=== PATIENT | female | born 1960 | race Caucasian/White ===

== ENCOUNTER 2020-01-18 12:40 | Outpatient (CLI) | payer OTHER, SELFPAY ==
--- NOTE | ~2020-01-18 | US_ITS ---
EXAMINATION: US venous doppler [facility] DATE: 01/18/2020 13:37 INDICATION: Lower limb swelling. TECHNIQUE: Grayscale ultrasound images without and with compression and Doppler ultrasound images of the bilateral lower extremity veins were obtained. COMPARISON: None. FINDINGS: The visualized portions of right common femoral vein, profunda (deep) femoral vein, femoral vein, pop liteal vein, peroneal veins, posterior tibial veins, and greater saphenous vein outflow are patent. The visualized portions of left common femoral vein, profunda femoral vein, femoral vein, popliteal v ein, peroneal veins, posterior tibial veins, and greater saphenous vein outflow are patent. IMPRESSION: 1. No deep venous thrombosis. Reviewed, dictated and finalized at location A.
== END 2020-01-18 12:41 | disposition home or self-care (01) ==
PROVIDERS: PCP Family Medicine; Visit Provider Internal Medicine Critical Care Medicine
DX: M79.89 Other specified soft tissue disorders (principal)
CPT/HCPCS: 93970

== ENCOUNTER 2020-10-19 10:00 | Outpatient (CLI) | payer OTHER, SELFPAY | END 2020-10-19 10:01 | disposition home or self-care (01) | LOC: ANHCOVIDVC 10:00 | PROVIDERS: PCP Family Medicine | DX: Z23 Encounter for immunization (principal) | CPT/HCPCS: 0001A; 91300 ==

== ENCOUNTER 2020-11-09 10:01 | Outpatient (CLI) | payer OTHER, SELFPAY | END 2020-11-09 10:02 | disposition home or self-care (01) | LOC: ANHCOVIDVC 10:01 | PROVIDERS: PCP Family Medicine | DX: Z23 Encounter for immunization (principal) | CPT/HCPCS: 0002A; 91300 ==

== ENCOUNTER 2021-02-13 09:11 | Outpatient (CLI) | payer OTHER, SELFPAY ==
--- NOTE | ~2021-02-13 | MM_ITS ---
EXAMINATION: MM screening [facility] BI w terry HISTORY: Screening mammogram TECHNIQUE: Craniocaudal and mediolateral oblique 3-D tomosynthesis images were obtained and synthetic 2-D images were generated. CAD analysis was submitted and interpreted. COMPARISON: 01/26/2019, 08/12/2017, 06/07/2016 BREAST PARENCHYMAL COMPOSITION: There are scattered areas of fibroglandular density. FINDINGS: There is no evidence of suspicious mass, calcification, or architectural distortion to sugg est malignancy in either breast. There has been no suspicious interval change. IMPRESSION: 1. No mammographic evidence of malignancy. 2. Recommend routine screening mammography in one year. BI-RADS Category 1: Negative Reviewed, dictated and finalized at location A.
== END 2021-02-13 09:12 | disposition home or self-care (01) ==
LOC: ANHIMG 09:16
PROVIDERS: PCP Family Medicine; Visit Provider Family Medicine
DX: Z12.31 Encounter for screening mammogram for malignant neoplasm of breast (principal)
CPT/HCPCS: 77063; 77067

== ENCOUNTER 2021-09-25 09:13 | Inpatient (IN) | payer OTHER, SELFPAY ==
[2021-09-25] VITALS (14 sets, daily range): BP systolic 114–141; BP diastolic 60–88; PULSE 79–93; RESP 12–25; TEMP 36.6–37.7; O2SAT 90–98; BMI 39.5
--- NOTE | ~2021-09-25 | XR_ITS ---
EXAMINATION: XR chest 1V portable DATE: 09/25/2021 09:59 INDICATION: Altered mental status TECHNIQUE: frontal view of the chest was obtained. COMPARISON: Chest CT dated 09/29/2018 FINDINGS: Small airspace opacities at the lateral left midlung zone and at the left costophrenic angle. No pulm onary edema, pleural effusion or pneumothorax. The cardiomediastinal silhouette is normal. IMPRESSION: 1. Mild airspace opacities at the left costophrenic angle and lateral right midlung zone which could represent atelectasis and/or pneumonia. Reviewed, dictated and finalized at location A. R UP IMPRESSION: 1. Mild airspace opacities at the left costophrenic angle and lateral right mid lung zone which could represent atelectasis and/or pneumonia.
--- NOTE | ~2021-09-25 | CT_ITS ---
EXAMINATION: CT brain wo con DATE: 10/09/2021 07:57 INDICATION: Meningitis. TECHNIQUE: Computed tomography (CT) of the head was performed without intravenous contrast. The mA wa s adjusted according to patient size. Iterative reconstruction technique was employed. The dose-lengt h product was 605.33 mGy-cm. COMPARISON: Head CT 09/25/2021 FINDINGS: There is no intracranial hemorrhage, acute infarction, or abnormal intracranial mass lesion . There is an empty sella. The ventricles are normal in size. The orbits are normal. There is mild mu cosal thickening in the paranasal sinuses. There is a left mastoid effusion. IMPRESSION: 1. No acute intracranial pathology. Reviewed, dictated and finalized at location A. TRIC BATH ATTENDANT
--- NOTE | ~2021-09-25 | CT_ITS ---
EXAMINATION: CT BRAIN W/O DATE: 09/25/2021 10:04 INDICATION: Altered mental status TECHNIQUE: Computed tomography (CT) of the head was performed without intravenous contrast. The dose- length product was 605.33 mGy-cm. Automated exposure control and iterative reconstruction technique w ere employed. COMPARISON: No prior studies for comparison. FINDINGS: Normal brain parenchymal volume for age. Normal savage-white differentiation. No acute intrac ranial hemorrhage, infarction, mass or mass effect. No ventriculomegaly or midline shift. Midline sagittal images demonstrate a normal corpus callosum, c raniovertebral junction and sella turcica. Basilar cisterns are patent. There is an empty sella turci ca. Paranasal sinuses and mastoids are pneumatized. No depressed skull fractures. IMPRESSION: 1. No acute intracranial abnormality. Reviewed, dictated and finalized at location B. ING HELPER
--- NOTE | ~2021-09-25 | US_ITS ---
EXAMINATION: US venous doppler [facility] DATE: 10/06/2021 11:14 INDICATION: Lower limb pain. TECHNIQUE: Grayscale ultrasound images without and with compression and Doppler ultrasound images of the bilateral lower extremity veins were obtained. COMPARISON: Ultrasound 01/18/2020 FINDINGS: The visualized portions of right common femoral vein, profunda (deep) femoral vein, femoral vein, pop liteal vein, peroneal veins, posterior tibial veins, and greater saphenous vein outflow are patent. The visualized portions of left common femoral vein, profunda femoral vein, femoral vein, popliteal v ein, peroneal veins, posterior tibial veins, and greater saphenous vein outflow are patent. There is thrombus in left soleus vein. IMPRESSION: 1. Deep vein thrombosis involving left soleus vein. I called this result to Dr. Mckee. Reviewed, dictated and finalized at location A. S CLEANING MACHINE TENDER IMPRESSION: 1. Deep vein thrombosis involving left soleus vein. I called this result to Dr Addie Mckee.
--- NOTE | ~2021-09-25 | XR_ITS ---
EXAMINATION: XR lumbar puncture diagnostic EXAM DATE: 09/25/2021 11:46 INDICATION: Altered mental status. Clinical suspicion of meningitis. COVID positive. TECHNIQUE: Informed consent was obtained patient's for doing this procedure. The technologist and then I discussed benefits and risks including bleeding, infection with him. No real alternatives for this procedure to confirming suspected diagnosis. Radiologist Kenneth Mcfarlane M.D. performed the pro cedure with date of pulsed dose reduction fluoroscopy, with fluoroscopic time of 0.1 minutes. The DA P for this procedure was 14.5 Gycm2. A total of 5 images obtained for the exam. A timeout procedure was performed. Patient was moving periodically during the examination and report technologist were present to assist. The back was prepped in standard sterile fashion with Betadine. L4-5 entry site was chosen under fluoroscopic guidance and infiltrated with 1% lidocaine. The theca l sac was then accessed from a right approach using a 5 22G needle. Opening pressure determined to be 30 mmHg, elevated. A total of 9.5 mL of cloudy cerebral spinal flu id were then drained and placed in 4 consecutive vials which were labeled and sent to lab for analysi s. There were no immediate complications. IMPRESSION: 1. Status post fluoroscopic guided lumbar puncture. 2. Elevated opening pressure and cloudy CSF, suspicious for meningitis. Follow-up results. Reviewed, dictated and finalized at location A. ONER IMPRESSION: 1. Status post fluoroscopic guided lumbar puncture. 2. Elevated opening pressure and cloudy CSF, suspicious for meningitis. Follow- up results.
--- NOTE | 2021-09-25 09:16 | ECG_ITS ---
Measurements Intervals [place] Rate: 87 P: 46 SD: 146 QRS: 22 QRSD: 107 T: 54 QT: 381 QTc: 460 Interpretive Statements SINUS RHYTHM DELAYED PRECORDIAL R/S TRANSITION BORDERLINE ST-T WAVE ABNORMALITY- DIFFUSE LEADS BASELINE ARTIFACT- V4-V6 BORDERLINE ECG Electronically Signed On 09-25-2021 13:02:50 WINDER TENDER by Pete Chávez D.O.
[2021-09-25 09:23] LABS: Glucose Point of Care 165 mg/dl (65-105)
--- NOTE | 2021-09-25 09:24 | ED.GENADULT ---
HPI - General Adult General Chief complaint: Weakness Stated complaint: Lethargic, weakness. Source: RN notes reviewed History of Present Illness HPI narrative: Patient presents emergency department from home via EMS for altered mental status. History is per the patient's as the patient is nonverbal. Per the yesterday patient had been in her normal state of health he gone for a walk and after returning from walker seen watching TV when she can complain about her left ear hurting since that time she places a heating pad on her left ear and lay down go to bed he states that while there laying down she states she has been feeling nauseous and vomited x1. States that she was complained about a headache at that time states that he did and then woke at 2:00 to use the restroom and the patient been laying out on the couch sleeping on the left seat he states that when he awoke this morning he found the patient on the left states still sleeping and moving all of her arms and legs but was unresponsive and nonverbal that time he called EMS and brought her to the emergency department for further evaluation patient currently is awake in bed with her eyes open follows minimal commands but is nonverbal Related Data Home Medications Medication Instructions Recorded Confirmed calcium carbonate 500 mg calcium 500 mg PO DAILY 10/15/19 05/22/21 (1,250 mg) tablet cholecalciferol (vitamin D3) 25 1,000 unit PO DAILY 10/15/19 05/22/21 mcg (1,000 unit) capsule acetaminophen 325 mg tablet 975 mg PO BID tablet 05/22/21 05/22/21 diphenhydramine 25 1 tablet PO QHS 05/22/21 05/22/21 mg-acetaminophen 500 mg tablet Allergies Allergy/AdvReac Type Severity Reaction Status Date / Time bupropion AdvReac Intermediate Itching Verified 09/25/21 10:13 Review of Systems Review of Systems: ROS unobtainable: Yes unobtainable due to medical condition PMFSH Past Medical History Medical History Baldness Bilateral knee pain Chondromalacia, patella Diverticulosis of colon (without mention of hemorrhage) Female genital prolapse Hearing loss Hyperlipidemia, unspecified Hypothyroid Knee injury Left 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 swelling 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 Malignant neoplasm of colon without distant metastasis Metabolic syndrome Morbid obesity Murmur, cardiac Nicotine dependence, unspecified, uncomplicated Obesity due to excess calories Obstructive sleep apnea (adult) (pediatric) Patellar tendinitis of both knees Sensorineural hearing loss, unspecified Unspecified vitamin D deficiency Surgical History Surgical History History of right hip replacement Family History Family History Father Hypertension Family history of aortic aneurysm Mother Hypertension Cerebrovascular accident Sibling Family history of lung cancer Other Family history of pancreatic cancer Social History Social History Smoking status: Former smoker Smoking end date: 08/05/13 Alcohol intake: current Alcohol use details: Occasional 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 CARDIOVASCULAR: Regular rate and rhythm without murmurs rubs or gallops. ABDOMINAL: Soft, nontender, nondistended, no rebound or guarding MUSCULOSKELETAl: Moves all extremities. No clubbing, cyanosis or edema. NEURO: Laying in bed with eyes open will follow minimal commands such as putting her arm down vascular to do that but does not answer commands does not fo
[2021-09-25 09:46] LABS: Alveolar/Arterial O2 Gradient 47.6 mmHg; Base Excess ABG -1.4 mEq/l (+/-2.0); Device ROOM AIR; Fractional Inspired Oxygen 21 %; Modified Allen's Test Pass; Oxygen Content ABG 18.5 %vol (16.0-22.0); Oxygen Saturation ABG 94.7 % (95.0-100.0); Oxyhemoglobin 93.3 % THb (90.0-100.0); PCO2 ABG 29.3 mmHg (35.0-45.0); PO2 FiO2 Ratio Arterial Blood 3.19 %; Site Drawn LEFT RADIAL; Total Hemoglobin 14.1 g/dL (12.0-18.0); pH ABG 7.473 (7.350-7.450)
[2021-09-25 09:50] LABS: Hematocrit 43.6 % (37.0-47.0); Hemoglobin 13.9 g/dL (12.0-15.0); Immature Platelet Fraction Pct 14.5 % (0.9-11.2); Mean Corpuscular HGB Conc 31.9 g/dl (32-36); Mean Corpuscular Hemoglobin 31.7 pg (26-34); Mean Corpuscular Volume 99.3 fl (80-100); Mean Platelet Volume 11.1 fl (7.4-10.4); Platelet Count Result 149 k/mm3 (150-375); Red Blood Count 4.39 M/mm3 (4.2-5.4); Red Cell Distribution Width 13.2 % (11.5-14.5); White Blood Count 18.6 K/mm3 (4.5-10.0)
[2021-09-25 09:58] LABS: Prothrombin Time 12.6 Seconds (11.1-14.7)
[2021-09-25 10:01] LABS: Alanine Aminotransferase 35 U/L (4-35); Albumin Level 4.7 g/dL (3.5-5.1); Alkaline Phosphatase 93 U/L (38-126); Anion Gap 11 mmol/L (8-16); Aspartate Amino Transferase 39 U/L (14-36); Bilirubin,Total 1.2 mg/dL (0.2-1.3); Blood Urea Nitrogen 16 mg/dL (7-17); Calcium 9.6 mg/dL (8.4-10.2); Carbon Dioxide 23 mmol/L (22-30); Chloride 104 mmol/L (98-107); Estimated CRCL calculation 113 ml/min; Estimated Glomerular Filt Rate > 60; Glucose 164 mg/dL (65-110); Potassium 3.3 mmol/L (3.4-5.0); Sodium 138 mmol/L (137-145)
[2021-09-25 10:02] LABS: Add Urine Microscopic? YES; Amorphous Sediment Urine Few; Appearance Urine Cloudy (Clear); Bilirubin Urine Negative (Negative); Blood Urine 1+ (Negative); Color Urine Yellow (Yellow); Glucose Urine UA 1+ mg/dL (Negative); Ketones Urine Trace mg/dL (Negative); Leukocyte Esterase Ur Negative LEU/UL (Negative); Mucus Urine Rare /lpf; Nitrate Urine Negative (Negative); Protein Urine Negative (Negative); RBC Urine 21-50 /hpf (0-2); Specific Grav Ur 1.017 (1.001-1.035); Squamous Epithelial Cell Urine Rare /hpf (Few); Urobilinogen Urine Negative mg/dL (<2.0)
[2021-09-25 10:11] LABS: Lactic Acid Reflex 3.4 mmol/L (0.7-2.1)
[2021-09-25] MEDS: SODIUM CHLORIDE 0.9% IV 1,000 ML 999 ML IV CONT (10:27)
[2021-09-25 10:31] LABS: Band Neutrophils Percent 19 % (0-6); Lymphocytes Absolute Manual 0.55 K/mm3 (1.1-4.5); Metamyelocytes Percent 1 %; Monocytes Absolute Manual 0.93 K/mm3 (0.1-0.90); Monocytes Percent Manual 5 % (3-9); Neutrophils Absolute Manual 16.92 K/mm3 (1.7-7.2); Neutrophils Percent Manual 72 % (46-73); Platelet Estimate Adequate (Adequate); Total Cells Counted 100
[2021-09-25 11:06] LABS: SARS-CoV-2 RNA PCR Positive
[2021-09-25 12:45] LABS: Reflex Lactic Acid Yes or No Add Lactic
[2021-09-25 12:49] LABS: Appearance CSF Cloudy (Clear); CSF source CSF; Color CSF Yellow (Colorless)
[2021-09-25 12:51] LABS: Nucleated Cell CSF 2555 /uL (0-5)
[2021-09-25 12:52] LABS: Red Blood Cell CSF 736 (0-2)
[2021-09-25 12:54] LABS: Lymphocytes CSF 5 % (40-80); Monocytes CSF 2 % (15-45); Neutrophils CSF 93 % (0-6)
[2021-09-25 13:33] LABS: Glucose CSF < 20 mg/dL (40-70)
[2021-09-25] MEDS: cefTRIAXone 2 GM in SODIUM CHLORIDE 0.9% IV 100 ML 200 ML IVPB (13:33)
[2021-09-25 13:34] LABS: Total Protein CSF > 600 mg/dL (12-60)
--- NOTE | 2021-09-25 13:39 | PC.NURSE ---
patient able to tell her name and follow short commands/instructions
--- NOTE | 2021-09-25 14:00 | PM.IMHP ---
H&P: HPI History of Present Illness Date/Time: 09/25/21 14:00 <Valerie Woodard PA-C - Last Filed: 09/25/21 20:57> Chief Complaint: Weak, lethargic, confused. <Valerie Woodard PA-C - Last Filed: 09/25/21 20:57> Narrative: This is a 61-year-old female with hypothyroidism and sleep apnea presenting to emergency department today via EMS from home for evaluation of weakness, lethargy, and confusion. She is alert to self only at this time and as such all the following is obtained via a review of her electronic medical records as well as discussions with her and son via phone. Yesterday afternoon the patient's went out for a walk and when he returned the patient complained to him of a left-sided earache. She decided to try placing a heating pad on the area and she went to lie down for a period of time. Later in the evening she developed nausea and reported having 1 episode of emesis associated with a pretty severe headache. The last time her saw her in her usual state of health was around 20:00 and when he awoke at 02:00 to use the restroom he noted that she was asleep on the couch. When he woke this morning she was still on the couch but was extremely confused and her speech was incomprehensible. She was afebrile on arrival to the emergency department with stable blood pressures. Pertinent labs include a leukocytosis with left shift and lactic acidosis with a lactic acid level of 3.4. She did test positive for SARS-CoV-2 by PCR though reports that she was positive 6 weeks ago and her symptoms had essentially resolved. Brain CT showed no acute findings. A lumbar puncture was performed and demonstrated an elevated opening pressure with cloudy, yellow fluid and laboratory results consistent with a bacterial meningitis (2555 total nucleated cells with 93% neutrophils, glucose less than 20, total protein greater than 600) and she is being admitted to the intensive care unit for close monitoring. At the time my evaluation she will arouse to stimuli and is able to tell me her first name though her speech is garbled. She seems a bit disoriented and she answers no other questions nor does she follow commands however she is noted to move upper and lower extremities. <Valerie Woodard PA-C - Last Filed: 09/25/21 20:57> Review of Systems Review of Systems: Unable to be obtained given current clinical condition. <Valerie Woodard PA-C - Last Filed: 09/25/21 20:57> [facility] Past Medical History Medical History: Medical History Diverticulosis Female genital prolapse Hearing loss Hyperlipidemia, unspecified Hypothyroidism Malignant neoplasm of colon without distant metastasis Metabolic syndrome Morbid obesity Murmur, cardiac Nicotine dependence, unspecified, uncomplicated Obstructive sleep apnea Sensorineural hearing loss, unspecified Unspecified vitamin D deficiency <Valerie Woodard PA-C - Last Filed: 09/25/21 20:57> Surgical History Surgical History: Surgical History History of right hip replacement <Valerie Woodard PA-C - Last Filed: 09/25/21 20:57> Family History Family History: Family History Father Hypertension Family history of aortic aneurysm Mother Hypertension Cerebrovascular accident Sibling Family history of lung cancer Other Family history of pancreatic cancer <Valerie Woodard PA-C - Last Filed: 09/25/21 20:57> Social History Social History: Social History Social History: Surrogate decision maker: Mendoza Jalloh, spouse. Code status: Full code. 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
[2021-09-25] MEDS: AMPICILLIN 2 GM/NS 100 ML 2 GM/100 ML BAG IVPB ×3 (14:31→21:00)
--- NOTE | 2021-09-25 15:43 | WPDNEURCNPN ---
Assessment and Plan Additional Plan 1 meningitis most likely bacterial 2 sepsis 3 treatment already started his spinal fluid cultures are pending Consult date: 09/26/21 HPI: Yancy Jalloh is a 61 year old female brought to the emergency room of [facility] for the complaints of lethargy and weakness via EMS. As per the information available from the patient's she had been in her normal state of health ,he had gone for a walk and after returning from Walk seen watching TV when she complained of left ear pain ,she placed a heating pad on her left ear and laid down to go to bed ,she was still feeling nauseated and vomited once then she complained of headache and woke up around 2 to go to the bathroom subsequently laid down on the couch sleeping on the seat but when the woke up in the morning he found the patient in the seatand still sleepy ,moving all her upper and lower extremities though unresponsive to verbal commands, he called the EMS who brought her to the emergency . patient has ongoing history of multiple problems as outlined and initial examination revealed her to be following the minimal verbal commands not answering the instruction and obviously warm and dry she was tachycardiac with respiration rate of 24 blood pressure 141/88, CBC reveals leukocytosis with 13.9 hemoglobin and platelet count of 149, UA with pH of 8 21 to 50 RBCs, INR of 1 with a PTT 23.0 and basic metabolic panel normal except glucose of 164, her SARS-CoV-2 id was also positive, CT of the head was negative for bleed or space-occupying lesion, his spinal tap revealed elevated opening pressure, with yellow and cloudy fluid, total nucleated cells of 2005 in 55 but 93% neutrophils less than 20 glucose hand more than 600 total protein, head CT scan was as mentioned before negative Review of Systems Review of Systems: All systems reviewed & are unremarkable except as noted in HPI and below PMFSH Past Medical History Medical History Diverticulosis Female genital prolapse Hearing loss Hyperlipidemia, unspecified Hypothyroidism Malignant neoplasm of colon without distant metastasis Metabolic syndrome Morbid obesity Murmur, cardiac Nicotine dependence, unspecified, uncomplicated Obstructive sleep apnea Sensorineural hearing loss, unspecified Unspecified vitamin D deficiency Surgical History Surgical History History of right hip replacement Family History Family History Father Hypertension Family history of aortic aneurysm Mother Hypertension Cerebrovascular accident Sibling Family history of lung cancer Other Family history of pancreatic cancer Social History Social History Social History: Surrogate decision maker: Mendoza Jalloh, spouse. Code status: Full code. 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 Meds Home Medications and Allergies Home Medications Medication Instructions Recorded Confirmed Type calcium carbonate 500 mg calcium 500 mg PO DAILY 10/15/19 09/25/21 History (1,250 mg) tablet cholecalciferol (vitamin D3) 25 1,000 unit PO DAILY 10/15/19 09/25/21 History mcg (1,000 unit) capsule acetaminophen 325 mg tablet 975 mg PO BID tablet 05/22/21 09/25/21 History diphenhydramine 25 1 tablet PO QHS 05/22/21 09/25/21 History mg-acetaminophen 500 mg tablet levothyroxine [Synthroid] 100 mcg PO DAILY 09/25/21 09/25/21 History Allergies Allergy/AdvReac Type Severity Reaction Status Date / Time bupropion AdvReac Intermediate Itching Verified 09/25/21 10:13 Vital Signs Vital Signs - 24 hr 09/25/21 09:16 09/25
[2021-09-25] MEDS: ACYCLOVIR SODIUM IVPB 1,000 MG in DEXTROSE 5% IN WATER 250 ML 266 MG IVPB (15:56)
[2021-09-25] MEDS: SODIUM CHLORIDE 0.9% IV 1,000 ML 125 ML IV CONT ×2 (15:57→20:47)
--- NOTE | 2021-09-25 16:41 | PC.NURSE ---
This patient, Yancy Jalloh, was admitted to Intensive Care Unit-7. Patient/family oriented to hospital policies and general routines including ID bracelet, bed and alarms, visiting hours, pain management, procedures, bathroom and other care routines, personal items, smoking policy, room service/diet, and visiting hours. Information on how to activate the Rapid Response Team has been discussed. Patient/Family are encouraged to report perceived risks to care and to ask questions if they do not understand what they are told or what they should do.
--- NOTE | 2021-09-25 16:45 | PC.NURSE ---
Dr. Bernard and HERVE Bradley notified that patient has arrived to ICU 7.
[2021-09-25 17:18] LABS: Glucose Point of Care 176 mg/dl (65-105)
[2021-09-26] VITALS (16 sets, daily range): BP systolic 107–136; BP diastolic 71–76; PULSE 74–90; RESP 16–95; TEMP 36.2–37.2; O2SAT 94–97
[2021-09-26] MEDS: ACYCLOVIR SODIUM IVPB 1,000 MG in DEXTROSE 5% IN WATER 250 ML 266 MG IVPB ×3 (00:03→17:03)
[2021-09-26] MEDS: cefTRIAXone 2 GM in SODIUM CHLORIDE 0.9% IV 100 ML 200 ML IVPB ×2 (00:04→14:29)
[2021-09-26] MEDS: AMPICILLIN 2 GM/NS 100 ML 2 GM/100 ML BAG IVPB ×6 (01:55→21:05)
[2021-09-26 04:39] LABS: Basophils Percent Auto 0.1 % (0.2-1.2); Hematocrit 38.4 % (37.0-47.0); Hemoglobin 12.8 g/dL (12.0-15.0); Immature Granulocyte Absolute 0.27 K/mm3 (0.00-0.031); Immature Granulocyte Percent A 1.3 % (0-0.5); Lymphocytes Absolute Auto 0.95 K/mm3 (0.9-3.2); Lymphocytes Percent Auto 4.5 % (18.3-44.2); Mean Corpuscular HGB Conc 33.3 g/dl (32-36); Mean Corpuscular Hemoglobin 31.8 pg (26-34); Mean Corpuscular Volume 95.5 fl (80-100); Mean Platelet Volume 10.2 fl (7.4-10.4); Monocytes Absolute Auto 0.7 K/mm3 (0.1-0.6); Monocytes Percent Auto 3.1 % (2.6-8.5); Neutrophils Absolute Auto 19.3 K/mm3 (1.3-6.7); Platelet Count Result 196 k/mm3 (150-375); Red Blood Count 4.02 M/mm3 (4.2-5.4); Red Cell Distribution Width 13.2 % (11.5-14.5); White Blood Count 21.2 K/mm3 (4.5-10.0)
[2021-09-26 04:52] LABS: Lactic Acid Reflex 0.9 mmol/L (0.7-2.1)
[2021-09-26 05:24] LABS: Alanine Aminotransferase 30 U/L (4-35); Albumin Level 3.8 g/dL (3.5-5.1); Alkaline Phosphatase 92 U/L (38-126); Anion Gap 8 mmol/L (8-16); Aspartate Amino Transferase 26 U/L (14-36); Bilirubin,Total 0.5 mg/dL (0.2-1.3); Blood Urea Nitrogen 10 mg/dL (7-17); Carbon Dioxide 22 mmol/L (22-30); Chloride 112 mmol/L (98-107); Estimated CRCL calculation 108 ml/min; Estimated Glomerular Filt Rate > 60; Glucose 136 mg/dL (65-110); Magnesium 2.5 mg/dL (1.6-2.3); Potassium 3.2 mmol/L (3.4-5.0); Sodium 142 mmol/L (137-145)
[2021-09-26] MEDS: LEVOTHYROXINE SODIUM INJ 100 MCG/5 ML VIAL 50 MCG IV PUSH (05:37)
[2021-09-26 05:53] LABS: Thyroid Stimulating Hormone Reflex 0.671 uIU/mL (0.465-4.68)
[2021-09-26 05:56] LABS: CRP 29.3 mg/dL (<1.0)
[2021-09-26] MEDS: SODIUM CHLORIDE 0.9% IV 1,000 ML 125 ML IV CONT ×2 (08:16→20:43)
[2021-09-26] MEDS: LEVOTHYROXINE SODIUM 100 MCG TABLET PO (08:18)
--- NOTE | 2021-09-26 10:55 | WPDCNINT ---
Assessment and Plan Assessment and plan (1) Meningitis: Code(s): G03.9 - Meningitis, unspecified Status: Acute Assessment and Plan: Patient presented with altered mental status, confusion, lethargy -CT scan of the brain was negative for any acute intracranial abnormalities -LP was performed and demonstrated elevated opening pressure with cloudy yellow fluid consistent with bacterial meningitis, (2555 total nucleated cells with 93% neutrophils, glucose less than 20, total protein greater than 600). -09/25: Patient was started on ceftriaxone, vancomycin, ampicillin and acyclovir for meningitis, also on dexamethasone. - Neurology evaluated the patient and is agreeable with the diagnosis of bacterial meningitis and antibiotic preference. -patient much improved this morning, alert, awake, oriented x3, nonfocal (2) Sepsis: Code(s): A41.9 - Sepsis, unspecified organism Status: Acute Assessment and Plan: Patient presented with sepsis, leukocytosis, elevated lactic acid, increased CRP -blood cultures growing Gram-positive cocci in pairs 1/2 bottles -LP also revealed meningitis -continue ceftriaxone, vancomycin, ampicillin and acyclovir (3) COVID-19: Code(s): U07.1 - COVID-19 Status: Acute Assessment and Plan: Patient tested positive for COVID 6 weeks back and has symptoms as resolve, currently no symptoms, on room air with good O2 sat (4) Hypothyroid: Code(s): E03.9 - Hypothyroidism, unspecified Status: Acute Assessment and Plan: Restarted patient on levothyroxine (5) Sensorineural hearing loss, unspecified: Code(s): H90.5 - Unspecified sensorineural hearing loss Status: Acute (6) Obstructive sleep apnea (adult) (pediatric): Code(s): G47.33 - Obstructive sleep apnea (adult) (pediatric) Status: Acute Assessment and Plan: Previously documented by Dr. Farias that the patient fell out of the habit of using her CPAP Additional Plan DVT prophylaxis: SCDs Code status: Full Code Critical care time spent: 47 minutes This dictation may have been done utilizing a voice recognition system. Attempts have been made to correct errors. However, there may be uncorrected grammatical, spelling, and recognition errors present. Due to a high probability of clinically significant, life threatening deterioration, the patient required my highest level of preparedness to intervene emergently and I personally spent this critical care time directly and personally managing the patient. This critical care time included obtaining a history; examining the patient; pulse oximetry; ordering and review of studies; arranging urgent treatment with development of a management plan; evaluation of patient's response to treatment; frequent reassessment; and discussions with other providers. It was exclusive of separately billable procedures and treating other patients and teaching time. 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 According the records patient and went out for a walk and when she returned she was complain of left-sided earache. Patient when asleep and when he woke up she was still on the couch extremely confused with incomprehensible speech. EMS was called and patient was brought to the ED. patient of elevated lactic acid level
[2021-09-26] MEDS: ACETAMINOPHEN 500 MG TABLET PO (12:09)
--- NOTE | 2021-09-26 12:47 | PC.NURSE ---
1243-report called to ALONSO Cain on 3 med/surg
--- NOTE | 2021-09-26 13:43 | PC.NURSE ---
1320-pt transferred to room 312 in wheelchair with personal rings in bag. Pt refused to have items locked in safe. Pt stated, that she would like to call her to update him to room change.
--- NOTE | 2021-09-26 14:11 | PC.NURSE ---
This patient, Yancy Jalloh, was received from [ICU] on 09/26/21 at 1330. Patient/family oriented to unit policies and routines
[2021-09-27] VITALS (7 sets, daily range): BP systolic 141–162; BP diastolic 80–90; PULSE 75–84; RESP 18–20; TEMP 35.8–37.1; O2SAT 97–99
[2021-09-27] MEDS: cefTRIAXone 2 GM in SODIUM CHLORIDE 0.9% IV 100 ML 200 ML IVPB ×2 (00:07→11:59)
[2021-09-27 00:18] LABS: Vancomycin Trough 11.6 ug/mL (10.0-20.0)
[2021-09-27] MEDS: ACYCLOVIR SODIUM IVPB 1,000 MG in DEXTROSE 5% IN WATER 250 ML 250 MG IVPB ×4 (00:18→23:38)
[2021-09-27] MEDS: ACETAMINOPHEN 500 MG TABLET PO ×2 (00:54→08:17)
[2021-09-27] MEDS: AMPICILLIN 2 GM/NS 100 ML 2 GM/100 ML BAG IVPB ×6 (02:27→21:09)
[2021-09-27] MEDS: LEVOTHYROXINE SODIUM 100 MCG TABLET PO (06:20)
[2021-09-27 06:44] LABS: Estimated CRCL calculation 108 ml/min; Estimated Glomerular Filt Rate > 60
[2021-09-27 12:02] LABS: Herpes Simplex Type 1 DNA PCR Not Detected (Not Detected); Herpes Simplex Type 2 DNA PCR Not Detected (Not Detected)
--- NOTE | 2021-09-27 12:59 | PM.IMPN ---
Progress Note: A&P Assessment and Plan (1) Meningitis: Code(s): G03.9 - Meningitis, unspecified Status: Acute Assessment and Plan: Patient presented with altered mental status, confusion, lethargy -CT scan of the brain was negative for any acute intracranial abnormalities -LP was performed and demonstrated elevated opening pressure with cloudy yellow fluid consistent with bacterial meningitis, (2555 total nucleated cells with 93% neutrophils, glucose less than 20, total protein greater than 600). -09/25: Patient was started on ceftriaxone, vancomycin, ampicillin and acyclovir for meningitis, also on dexamethasone. - Neurology evaluated the patient and is agreeable with the diagnosis of bacterial meningitis and antibiotic preference. -patient continues to improve Await finalization of culture continue broad-spectrum antibiotics for now (2) Sepsis: Code(s): A41.9 - Sepsis, unspecified organism Status: Acute Assessment and Plan: Patient presented with sepsis, leukocytosis, elevated lactic acid, increased CRP -blood cultures growing Gram-positive cocci in pairs 2/2 bottles -LP also revealed meningitis -continue ceftriaxone, vancomycin, ampicillin and acyclovir (3) COVID-19: Code(s): U07.1 - COVID-19 Status: Acute Assessment and Plan: Patient tested positive for COVID 6 weeks back and has symptoms as resolve, currently no symptoms, on room air with good O2 sat (4) Hypothyroid: Code(s): E03.9 - Hypothyroidism, unspecified Status: Acute Assessment and Plan: Restarted patient on levothyroxine (5) Sensorineural hearing loss, unspecified: Code(s): H90.5 - Unspecified sensorineural hearing loss Status: Acute (6) Obstructive sleep apnea (adult) (pediatric): Code(s): G47.33 - Obstructive sleep apnea (adult) (pediatric) Status: Acute Assessment and Plan: Previously documented by Dr. Farias that the patient fell out of the habit of using her CPAP (7) Bacteremia: Code(s): R78.81 - Bacteremia Status: Acute Assessment and Plan: Gram-positive cocci in pairs x2 Will repeat blood cultures x2 today Additional Plan DVT prophylaxis: SCDs Code status: Full Code Subjective Date/time seen: 09/27/21 12:59 Interval history: HPI:This is a 61-year-old female with hypothyroidism and sleep apnea presenting to emergency department today via EMS from home for evaluation of weakness, lethargy, and confusion. She is alert to self only at this time and as such all the following is obtained via a review of her electronic medical records as well as discussions with her and son via phone. Yesterday afternoon the patient's went out for a walk and when he returned the patient complained to him of a left-sided earache. She decided to try placing a heating pad on the area and she went to lie down for a period of time. Later in the evening she developed nausea and reported having 1 episode of emesis associated with a pretty severe headache. The last time her saw her in her usual state of health was around 20:00 and when he awoke at 02:00 to use the restroom he noted that she was asleep on the couch. When he woke this morning she was still on the couch but was extremely confused and her speech was incomprehensible. She was afebrile on arrival to the emergency department with stable blood pressures. Pertinent labs include a leukocytosis with left shift and lactic acidosis with a lactic acid level of 3.4. She did test positive for SARS-CoV-2 by PCR though reports that she was positive 6 weeks ago and her symptoms had essentially resolved. Brain CT showed no acute findings. A lumbar puncture was performed and demonstrated an elevated opening pressure with cloudy, yellow fluid and laboratory results consistent with a bacterial meningitis (2555 total nucleated cells with 93% neutrophils, glucose less than 20, total protein greater t
[2021-09-27 13:32] LABS: Basophils Percent Auto 0.1 % (0.2-1.2); Hematocrit 36.9 % (37.0-47.0); Immature Granulocyte Absolute 0.21 K/mm3 (0.00-0.031); Immature Granulocyte Percent A 1.3 % (0-0.5); Lymphocytes Absolute Auto 0.96 K/mm3 (0.9-3.2); Lymphocytes Percent Auto 5.9 % (18.3-44.2); Mean Corpuscular HGB Conc 32.5 g/dl (32-36); Mean Corpuscular Hemoglobin 31.7 pg (26-34); Mean Corpuscular Volume 97.4 fl (80-100); Mean Platelet Volume 10.6 fl (7.4-10.4); Monocytes Absolute Auto 0.5 K/mm3 (0.1-0.6); Monocytes Percent Auto 3.2 % (2.6-8.5); Neutrophils Absolute Auto 14.5 K/mm3 (1.3-6.7); Neutrophils Percent Auto 89.5 % (45.5-73.1); Platelet Count Result 210 k/mm3 (150-375); Red Blood Count 3.79 M/mm3 (4.2-5.4); Red Cell Distribution Width 13.5 % (11.5-14.5); White Blood Count 16.2 K/mm3 (4.5-10.0)
[2021-09-27] MEDS: SODIUM CHLORIDE 0.9% IV 1,000 ML 125 ML IV CONT (13:35)
[2021-09-27 13:54] LABS: Alanine Aminotransferase 23 U/L (4-35); Albumin Level 3.5 g/dL (3.5-5.1); Alkaline Phosphatase 82 U/L (38-126); Anion Gap 8 mmol/L (8-16); Aspartate Amino Transferase 24 U/L (14-36); Bilirubin,Total 0.4 mg/dL (0.2-1.3); Blood Urea Nitrogen 12 mg/dL (7-17); Calcium 8.4 mg/dL (8.4-10.2); Carbon Dioxide 23 mmol/L (22-30); Chloride 109 mmol/L (98-107); Estimated CRCL calculation 108 ml/min; Estimated Glomerular Filt Rate > 60; Glucose 196 mg/dL (65-110); Magnesium 2.4 mg/dL (1.6-2.3); Potassium 3.2 mmol/L (3.4-5.0); Sodium 140 mmol/L (137-145)
[2021-09-27] MEDS: POTASSIUM CHLORIDE 20 MEQ TABLET 40 MEQ PO (17:08)
[2021-09-28] VITALS (9 sets, daily range): BP systolic 152–161; BP diastolic 84–96; PULSE 53–80; RESP 16–20; TEMP 36.6–37.3; O2SAT 93–100
--- NOTE | 2021-09-28 | ECHO_ITS ---
Patient Info Name: Yancy Jalloh Age: 61 years : 1960 Gender: Female Ht: 64 in Wt: 213 lbs BSA: 2.13 m2 HR: 78 bpm BP: 152 / 84 mmHg Heart Rhythm: Sinus Rhythm Technical Quality: Fair Exam Date: 09/28/2021 3:16 PM Exam Location: [facility], [facility] Pulmonary Exam Room: 312 Patient Status: Inpatient Admit Date: 09/25/2021 Staff Ordering Physician: Espinoza Mack MD Attending Provider: Alan Mckee MD Exam Type: CA echo doppler color flow Study Info Indications - bacteremia Complete two-dimensional, color flow and Doppler transthoracic echocardiogram is performed. Summary 1. Complete two-dimensional, color flow and Doppler transthoracic echocardiogram is performed. 2. Left ventricular chamber dimension is normal. 3. Left ventricular systolic function is normal, estimated at 65-70%. 4. There is mildly increased left ventricular wall thickness. 5. Left ventricular septal wall motion is normal. 6. The left ventricular diastolic function is grade II diastolic dysfunction. 7. There is mild mitral valve regurgitation. 8. There is mild tricuspid valve regurgitation. 9. Moderate pulmonary hypertension, estimated pulmonary arterial systolic pressure is 45 mmHg. Left Ventricle Left ventricular chamber dimension is normal. Left ventricular systolic function is normal, estimated at 65-70%. There is mildly increased left ventricular wall thickness. Left ventricular septal wall motion is normal. The left ventricular diastolic function is grade II diastolic dysfunction. Right Ventricle Right ventricular chamber dimension is normal. Right ventricular systolic function is normal. Left Atria Left atrial chamber dimension is normal. Right Atria Right atrial chamber dimension is normal. Atrial Septum Intact interatrial septum visualized by color flow imaging. Aortic Valve The aortic valve is trileaflet. There is mild aortic valve sclerosis. There is no aortic valve stenosis. There is trace aortic valve regurgitation. Pulmonic Valve The pulmonic valve is normal. There is no pulmonic valve stenosis. There is trace pulmonic regurgitation. Mitral Valve The mitral valve has normal leaflets. There is no mitral valve stenosis. There is mild mitral valve regurgitation. Tricuspid Valve The tricuspid valve leaflets are normal. There is no significant tricuspid valve stenosis. There is mild tricuspid valve regurgitation. Moderate pulmonary hypertension, estimated pulmonary arterial systolic pressure is 45 mmHg. Pericardium/Pleural The pericardium appears normal. There is no pericardial effusion. Inferior Vena Cava Dilated inferior vena cava with <50% collapse upon inspiration consistent with elevated right atrial pressure, 15 mmHg. Aorta The aortic root size at the sinus of Valsalva is normal. Left Ventricular Outflow Tract Name Value Normal LVOT 2D LVOT Diameter 2.1 cm LVOT Doppler LVOT Peak Gradient 4 mmHg LVOT Mean Gradient 2 mmHg LVOT VTI 21 cm LVOT VTI/AV VT
[2021-09-28] MEDS: cefTRIAXone 2 GM in SODIUM CHLORIDE 0.9% IV 100 ML 200 ML IVPB ×2 (01:24→13:44)
[2021-09-28] MEDS: AMPICILLIN 2 GM/NS 100 ML 2 GM/100 ML BAG IVPB ×3 (02:23→12:30)
[2021-09-28] MEDS: LEVOTHYROXINE SODIUM 100 MCG TABLET PO (05:39)
[2021-09-28 06:51] LABS: Basophils Percent Auto 0.2 % (0.2-1.2); Hematocrit 33.8 % (37.0-47.0); Hemoglobin 11.3 g/dL (12.0-15.0); Immature Granulocyte Absolute 0.15 K/mm3 (0.00-0.031); Immature Granulocyte Percent A 1.3 % (0-0.5); Lymphocytes Absolute Auto 1.03 K/mm3 (0.9-3.2); Mean Corpuscular HGB Conc 33.4 g/dl (32-36); Mean Corpuscular Hemoglobin 31.4 pg (26-34); Mean Corpuscular Volume 93.9 fl (80-100); Mean Platelet Volume 10.6 fl (7.4-10.4); Monocytes Absolute Auto 0.6 K/mm3 (0.1-0.6); Monocytes Percent Auto 4.9 % (2.6-8.5); Neutrophils Absolute Auto 9.7 K/mm3 (1.3-6.7); Neutrophils Percent Auto 84.6 % (45.5-73.1); Platelet Count Result 213 k/mm3 (150-375); Red Cell Distribution Width 13.3 % (11.5-14.5); White Blood Count 11.5 K/mm3 (4.5-10.0)
[2021-09-28 07:41] LABS: Alanine Aminotransferase 35 U/L (4-35); Albumin Level 3.3 g/dL (3.5-5.1); Alkaline Phosphatase 89 U/L (38-126); Anion Gap 6 mmol/L (8-16); Aspartate Amino Transferase 33 U/L (14-36); Bilirubin,Total 0.5 mg/dL (0.2-1.3); Blood Urea Nitrogen 14 mg/dL (7-17); CRP 7.3 mg/dL (<1.0); Calcium 8.1 mg/dL (8.4-10.2); Carbon Dioxide 23 mmol/L (22-30); Chloride 110 mmol/L (98-107); Estimated CRCL calculation 108 ml/min; Estimated Glomerular Filt Rate > 60; Glucose 124 mg/dL (65-110); Magnesium 2.2 mg/dL (1.6-2.3); Potassium 3.3 mmol/L (3.4-5.0); Sodium 139 mmol/L (137-145)
[2021-09-28] MEDS: ACYCLOVIR SODIUM IVPB 1,000 MG in DEXTROSE 5% IN WATER 250 ML 250 MG IVPB (09:23)
[2021-09-28 11:20] LABS: Vancomycin Trough 13.1 ug/mL (10.0-20.0)
[2021-09-28] MEDS: SODIUM CHLORIDE 0.9% IV 1,000 ML 105 ML IV CONT ×2 (12:30→12:35)
--- NOTE | 2021-09-28 12:55 | PM.IMPN ---
Progress Note: A&P Assessment and Plan (1) Meningitis: Code(s): G03.9 - Meningitis, unspecified Status: Acute Assessment and Plan: Patient presented with altered mental status, confusion, lethargy -CT scan of the brain was negative for any acute intracranial abnormalities -LP was performed and demonstrated elevated opening pressure with cloudy yellow fluid consistent with bacterial meningitis, (2555 total nucleated cells with 93% neutrophils, glucose less than 20, total protein greater than 600). -09/25: Patient was started on ceftriaxone, vancomycin, ampicillin and acyclovir for meningitis, also on dexamethasone. - Neurology evaluated the patient and is agreeable with the diagnosis of bacterial meningitis and antibiotic preference. -patient continues to improve Await finalization of culture continue broad-spectrum antibiotics for now Will stop acyclovir and ampicillin Continue on vancomycin and ceftriaxone as ordered Dexamethasone for total 4 days (2) Sepsis: Code(s): A41.9 - Sepsis, unspecified organism Status: Acute Assessment and Plan: Patient presented with sepsis, leukocytosis, elevated lactic acid, increased CRP -blood cultures growing Gram-positive cocci in pairs 2/2 bottles -LP also revealed meningitis -continue ceftriaxone, vancomycin, ampicillin and acyclovir Stop ampicillin and acyclovir today (3) COVID-19: Code(s): U07.1 - COVID-19 Status: Acute Assessment and Plan: Patient tested positive for COVID 6 weeks back and has symptoms as resolve, currently no symptoms, on room air with good O2 sat (4) Hypothyroid: Code(s): E03.9 - Hypothyroidism, unspecified Status: Acute Assessment and Plan: Restarted patient on levothyroxine (5) Sensorineural hearing loss, unspecified: Code(s): H90.5 - Unspecified sensorineural hearing loss Status: Acute (6) Obstructive sleep apnea (adult) (pediatric): Code(s): G47.33 - Obstructive sleep apnea (adult) (pediatric) Status: Acute Assessment and Plan: Previously documented by Dr. Farias that the patient fell out of the habit of using her CPAP (7) Bacteremia: Code(s): R78.81 - Bacteremia Status: Acute Assessment and Plan: Gram-positive cocci in pairs x2 Will repeat blood cultures x2 which has been negative so far Will get TTE mild systolic murmur noted on examination Additional Plan DVT prophylaxis: SCDs Code status: Full Code Subjective Date/time seen: 09/28/21 12:55 Interval history: HPI:This is a 61-year-old female with hypothyroidism and sleep apnea presenting to emergency department today via EMS from home for evaluation of weakness, lethargy, and confusion. She is alert to self only at this time and as such all the following is obtained via a review of her electronic medical records as well as discussions with her and son via phone. Yesterday afternoon the patient's went out for a walk and when he returned the patient complained to him of a left-sided earache. She decided to try placing a heating pad on the area and she went to lie down for a period of time. Later in the evening she developed nausea and reported having 1 episode of emesis associated with a pretty severe headache. The last time her saw her in her usual state of health was around 20:00 and when he awoke at 02:00 to use the restroom he noted that she was asleep on the couch. When he woke this morning she was still on the couch but was extremely confused and her speech was incomprehensible. She was afebrile on arrival to the emergency department with stable blood pressures. Pertinent labs include a leukocytosis with left shift and lactic acidosis with a lactic acid level of 3.4. She did test positive for SARS-CoV-2 by PCR though reports that she was positive 6 weeks ago and her symptoms had essentially resolved. Brain CT showed no acute findings. A lumbar puncture was per
[2021-09-28] MEDS: POTASSIUM CHLORIDE 20 MEQ TABLET 40 MEQ PO (13:44)
[2021-09-28] MEDS: SALINE 0.65% NAS SOLN 44 ML BTL 1 SPRAY NASAL (15:09)
[2021-09-29] MEDS: cefTRIAXone 2 GM in SODIUM CHLORIDE 0.9% IV 100 ML 200 ML IVPB ×2 (01:08→15:05)
[2021-09-29 03:57] VITALS: BP 159/90; PULSE 53; RESP 20; TEMP 36.6; O2SAT 93
[2021-09-29] MEDS: LEVOTHYROXINE SODIUM 100 MCG TABLET PO (05:39)
[2021-09-29 06:40] LABS: Alanine Aminotransferase 96 U/L (4-35); Albumin Level 3.3 g/dL (3.5-5.1); Alkaline Phosphatase 72 U/L (38-126); Anion Gap 6 mmol/L (8-16); Aspartate Amino Transferase 52 U/L (14-36); Bilirubin,Total 0.6 mg/dL (0.2-1.3); Blood Urea Nitrogen 16 mg/dL (7-17); Calcium 8.5 mg/dL (8.4-10.2); Carbon Dioxide 24 mmol/L (22-30); Chloride 108 mmol/L (98-107); Estimated CRCL calculation 92 ml/min; Estimated Glomerular Filt Rate > 60; Glucose 144 mg/dL (65-110); Magnesium 2.2 mg/dL (1.6-2.3); Potassium 3.4 mmol/L (3.4-5.0); Sodium 138 mmol/L (137-145)
[2021-09-29 06:42] LABS: Basophils Percent Auto 0.3 % (0.2-1.2); Hematocrit 34.7 % (37.0-47.0); Hemoglobin 11.5 g/dL (12.0-15.0); Immature Granulocyte Absolute 0.24 K/mm3 (0.00-0.031); Immature Granulocyte Percent A 3.3 % (0-0.5); Lymphocytes Percent Auto 16.3 % (18.3-44.2); Mean Corpuscular HGB Conc 33.1 g/dl (32-36); Mean Corpuscular Hemoglobin 31.1 pg (26-34); Mean Corpuscular Volume 93.8 fl (80-100); Mean Platelet Volume 11.2 fl (7.4-10.4); Monocytes Absolute Auto 0.5 K/mm3 (0.1-0.6); Monocytes Percent Auto 7.2 % (2.6-8.5); Neutrophils Absolute Auto 5.4 K/mm3 (1.3-6.7); Neutrophils Percent Auto 72.9 % (45.5-73.1); Platelet Count Result 174 k/mm3 (150-375); Red Cell Distribution Width 13.4 % (11.5-14.5); White Blood Count 7.4 K/mm3 (4.5-10.0)
[2021-09-29 08:00] VITALS: BP 162/83; PULSE 61; RESP 16; TEMP 36.5; O2SAT 95
[2021-09-29 11:19] LABS: Vancomycin Trough 16.4 ug/mL (10.0-20.0)
[2021-09-29 11:47] VITALS: BP 140/91; PULSE 62; RESP 16; TEMP 36.8; O2SAT 97
--- NOTE | 2021-09-29 15:49 | PM.IMPN ---
Progress Note: A&P Assessment and Plan (1) Meningitis: Code(s): G03.9 - Meningitis, unspecified Status: Acute Assessment and Plan: Patient presented with altered mental status, confusion, lethargy -CT scan of the brain was negative for any acute intracranial abnormalities -LP was performed and demonstrated elevated opening pressure with cloudy yellow fluid consistent with bacterial meningitis, (2555 total nucleated cells with 93% neutrophils, glucose less than 20, total protein greater than 600). -09/25: Patient was started on ceftriaxone, vancomycin, ampicillin and acyclovir for meningitis, also on dexamethasone. - Neurology evaluated the patient and is agreeable with the diagnosis of bacterial meningitis and antibiotic preference. -patient continues to improve Await finalization of culture continue broad-spectrum antibiotics for now Will stop acyclovir and ampicillin Continue on vancomycin and ceftriaxone as ordered Dexamethasone for total 4 days MICFor ceftriaxone came back at 1 which is intermediate for meningitis treatment We will continue combination of vancomycin and ceftriaxone repeat blood cultures has been negative (2) Sepsis: Code(s): A41.9 - Sepsis, unspecified organism Status: Acute Assessment and Plan: Patient presented with sepsis, leukocytosis, elevated lactic acid, increased CRP -blood cultures growing Gram-positive cocci in pairs 2/2 bottles -LP also revealed meningitis -continue ceftriaxone, vancomycin, ampicillin and acyclovir Stop ampicillin and acyclovir 09/28/2021 (3) COVID-19: Code(s): U07.1 - COVID-19 Status: Acute Assessment and Plan: Patient tested positive for COVID 6 weeks back and has symptoms as resolve, currently no symptoms, on room air with good O2 sat (4) Hypothyroid: Code(s): E03.9 - Hypothyroidism, unspecified Status: Acute Assessment and Plan: Restarted patient on levothyroxine (5) Sensorineural hearing loss, unspecified: Code(s): H90.5 - Unspecified sensorineural hearing loss Status: Acute (6) Obstructive sleep apnea (adult) (pediatric): Code(s): G47.33 - Obstructive sleep apnea (adult) (pediatric) Status: Acute Assessment and Plan: Previously documented by Dr. Farias that the patient fell out of the habit of using her CPAP (7) Bacteremia: Code(s): R78.81 - Bacteremia Status: Acute Assessment and Plan: Gram-positive cocci in pairs x2 which came back as Streptococcus pneumonia Will repeat blood cultures x2 which has been negative so far TTE with EF 65-70% mildly increased left ventricular wall thickness normal septal wall motion grade 2 diastolic dysfunction mild MR and TR moderate pulmonary hypertension no vegetation Additional Plan DVT prophylaxis: SCDs Code status: Full Code Subjective Date/time seen: 09/29/21 15:49 Interval history: HPI:This is a 61-year-old female with hypothyroidism and sleep apnea presenting to emergency department today via EMS from home for evaluation of weakness, lethargy, and confusion. She is alert to self only at this time and as such all the following is obtained via a review of her electronic medical records as well as discussions with her and son via phone. Yesterday afternoon the patient's went out for a walk and when he returned the patient complained to him of a left-sided earache. She decided to try placing a heating pad on the area and she went to lie down for a period of time. Later in the evening she developed nausea and reported having 1 episode of emesis associated with a pretty severe headache. The last time her saw her in her usual state of health was around 20:00 and when he awoke at 02:00 to use the restroom he noted that she was asleep on the couch. When he woke this morning she was still on the couch but was extremely confused and her speech was incomprehensible. She was afebrile on arrival to the e
[2021-09-29 16:00] VITALS: BP 154/84; PULSE 56; RESP 17; TEMP 36.2; O2SAT 98
[2021-09-29 20:00] VITALS: BP 168/78; PULSE 54; RESP 16; TEMP 36.6; O2SAT 99
[2021-09-29 23:36] VITALS: PULSE 71; RESP 19; O2SAT 95
[2021-09-30] VITALS (8 sets, daily range): BP systolic 153–177; BP diastolic 74–97; PULSE 48–73; RESP 14–21; TEMP 36.3–36.7; O2SAT 95–100
[2021-09-30] MEDS: cefTRIAXone 2 GM in SODIUM CHLORIDE 0.9% IV 100 ML 200 ML IVPB ×2 (01:20→12:55)
[2021-09-30] MEDS: LEVOTHYROXINE SODIUM 100 MCG TABLET PO (05:58)
[2021-09-30 06:30] LABS: Basophils Percent Auto 0.4 % (0.2-1.2); Hematocrit 37.6 % (37.0-47.0); Hemoglobin 12.5 g/dL (12.0-15.0); Immature Granulocyte Absolute 0.39 K/mm3 (0.00-0.031); Immature Granulocyte Percent A 5.2 % (0-0.5); Lymphocytes Absolute Auto 1.15 K/mm3 (0.9-3.2); Lymphocytes Percent Auto 15.4 % (18.3-44.2); Mean Corpuscular HGB Conc 33.2 g/dl (32-36); Mean Corpuscular Hemoglobin 31.6 pg (26-34); Mean Corpuscular Volume 95.2 fl (80-100); Mean Platelet Volume 11.4 fl (7.4-10.4); Monocytes Absolute Auto 0.4 K/mm3 (0.1-0.6); Monocytes Percent Auto 5.8 % (2.6-8.5); Neutrophils Absolute Auto 5.5 K/mm3 (1.3-6.7); Neutrophils Percent Auto 73.2 % (45.5-73.1); Platelet Count Result 173 k/mm3 (150-375); Red Blood Count 3.95 M/mm3 (4.2-5.4); Red Cell Distribution Width 13.1 % (11.5-14.5); White Blood Count 7.5 K/mm3 (4.5-10.0)
[2021-09-30 06:41] LABS: Alanine Aminotransferase 100 U/L (4-35); Albumin Level 3.4 g/dL (3.5-5.1); Alkaline Phosphatase 71 U/L (38-126); Anion Gap 8 mmol/L (8-16); Aspartate Amino Transferase 35 U/L (14-36); Bilirubin,Total 0.4 mg/dL (0.2-1.3); Blood Urea Nitrogen 17 mg/dL (7-17); Calcium 8.5 mg/dL (8.4-10.2); Carbon Dioxide 27 mmol/L (22-30); Chloride 105 mmol/L (98-107); Estimated CRCL calculation 81 ml/min; Estimated Glomerular Filt Rate > 60; Glucose 128 mg/dL (65-110); Potassium 3.5 mmol/L (3.4-5.0); Sodium 140 mmol/L (137-145)
[2021-09-30 08:15] LABS: Glucose Point of Care 129 mg/dl (65-105)
--- NOTE | 2021-09-30 09:48 | PM.IMPN ---
Progress Note: A&P Assessment and Plan (1) Meningitis: Code(s): G03.9 - Meningitis, unspecified Status: Acute Assessment and Plan: Patient presented with altered mental status, confusion, lethargy -CT scan of the brain was negative for any acute intracranial abnormalities -LP was performed and demonstrated elevated opening pressure with cloudy yellow fluid consistent with bacterial meningitis, (2555 total nucleated cells with 93% neutrophils, glucose less than 20, total protein greater than 600). -09/25: Patient was started on ceftriaxone, vancomycin, ampicillin and acyclovir for meningitis, also on dexamethasone. - Neurology evaluated the patient and is agreeable with the diagnosis of bacterial meningitis and antibiotic preference. -patient continues to improve Await finalization of culture continue broad-spectrum antibiotics for now Will stop acyclovir and ampicillin Continue on vancomycin and ceftriaxone as ordered Dexamethasone for total 4 days. And completes therapy will stop 09/30/2021 LORENZO For ceftriaxone came back at 1 which is intermediate for meningitis treatment We will continue combination of vancomycin and ceftriaxone Duration treatment total 2 weeks repeat blood cultures has been negative Needs pneumococcal vaccination in future she she is likely to follow-up as an outpatient will recommend in 2 months she gets PCV 13 followed by Pneumovax 23 8 weeks after PCV 13. (2) Sepsis: Code(s): A41.9 - Sepsis, unspecified organism Status: Acute Assessment and Plan: Patient presented with sepsis, leukocytosis, elevated lactic acid, increased CRP -blood cultures growing Gram-positive cocci in pairs 2/2 bottles -LP also revealed meningitis -continue ceftriaxone, vancomycin, ampicillin and acyclovir Stop ampicillin and acyclovir 09/28/2021 (3) COVID-19: Code(s): U07.1 - COVID-19 Status: Acute Assessment and Plan: Patient tested positive for COVID 6 weeks back and has symptoms as resolve, currently no symptoms, on room air with good O2 sat (4) Hypothyroid: Code(s): E03.9 - Hypothyroidism, unspecified Status: Acute Assessment and Plan: Restarted patient on levothyroxine (5) Sensorineural hearing loss, unspecified: Code(s): H90.5 - Unspecified sensorineural hearing loss Status: Acute (6) Obstructive sleep apnea (adult) (pediatric): Code(s): G47.33 - Obstructive sleep apnea (adult) (pediatric) Status: Acute Assessment and Plan: Previously documented by Dr. Farias that the patient fell out of the habit of using her CPAP (7) Bacteremia: Code(s): R78.81 - Bacteremia Status: Acute Assessment and Plan: Gram-positive cocci in pairs x2 which came back as Streptococcus pneumonia Will repeat blood cultures x2 which has been negative so far TTE with EF 65-70% mildly increased left ventricular wall thickness normal septal wall motion grade 2 diastolic dysfunction mild MR and TR moderate pulmonary hypertension no vegetation (8) Hypertension: Code(s): I10 - Essential (primary) hypertension Status: Acute Assessment and Plan: Could be from use of Decadron. Which is getting. Today Will start amlodipine 5 mg daily and monitor blood pressure. No history of diagnosed hypertension prior to admission Additional Plan DVT prophylaxis: SCDs Code status: Full Code Subjective Date/time seen: 09/30/21 09:48 Interval history: HPI:This is a 61-year-old female with hypothyroidism and sleep apnea presenting to emergency department today via EMS from home for evaluation of weakness, lethargy, and confusion. She is alert to self only at this time and as such all the following is obtained via a review of her electronic medical records as well as discussions with her and son via phone. Yesterday afternoon the patient's went out for a walk and when he returned the patient complained to him of a lef
[2021-09-30] MEDS: amLODIPine BESYLATE 5 MG TABLET PO (11:15)
[2021-10-01] VITALS (9 sets, daily range): BP systolic 111–161; BP diastolic 63–92; PULSE 44–71; RESP 16–20; TEMP 36.1–36.9; O2SAT 96–99
[2021-10-01] MEDS: cefTRIAXone 2 GM in SODIUM CHLORIDE 0.9% IV 100 ML 200 ML IVPB ×2 (00:05→14:26)
[2021-10-01] MEDS: LEVOTHYROXINE SODIUM 100 MCG TABLET PO (05:18)
[2021-10-01 05:48] LABS: Estimated CRCL calculation 72 ml/min; Estimated Glomerular Filt Rate > 60
[2021-10-01] MEDS: amLODIPine BESYLATE 5 MG TABLET PO (09:10)
--- NOTE | 2021-10-01 10:37 | PCOTNOTE ---
Due to pt's increase independence with occupation therapy, OTR changed frequency on 10/01/2021 from 5-7 days/wk to 2-3 days/wk.
[2021-10-01] MEDS: ACETAMINOPHEN 500 MG TABLET PO (14:31)
--- NOTE | 2021-10-01 15:34 | P.PNIM_ITS ---
Progress Note: A&P Assessment and Plan (1) Meningitis: Code(s): G03.9 - Meningitis, unspecified Status: Acute Assessment and Plan: Patient presented with altered mental status, confusion, lethargy -CT scan of the brain was negative for any acute intracranial abnormalities -LP was performed and demonstrated elevated opening pressure with cloudy yellow fluid consistent with bacterial meningitis, (2555 total nucleated cells with 93% neutrophils, glucose less than 20, total protein greater than 600). -09/25: Patient was started on ceftriaxone, vancomycin, ampicillin and acyclovir for meningitis, also on dexamethasone. - Neurology evaluated the patient and is agreeable with the diagnosis of bacterial meningitis and antibiotic preference. -patient continues to improve Await finalization of culture continue broad-spectrum antibiotics for now Will stop acyclovir and ampicillin Continue on vancomycin and ceftriaxone as ordered Dexamethasone for total 4 days. And completes therapy will stop 09/30/2021 LORENZO For ceftriaxone came back at 1 which is intermediate for meningitis treatment We will continue combination of vancomycin and ceftriaxone Duration treatment total 2 weeks repeat blood cultures has been negative Needs pneumococcal vaccination in future she she is likely to follow-up as an outpatient will recommend in 2 months she gets PCV 13 followed by Pneumovax 23 8 weeks after PCV 13. (2) Sepsis: Code(s): A41.9 - Sepsis, unspecified organism Status: Acute Assessment and Plan: Patient presented with sepsis, leukocytosis, elevated lactic acid, increased CRP -blood cultures growing Gram-positive cocci in pairs 2/2 bottles -LP also revealed meningitis -continue ceftriaxone, vancomycin, ampicillin and acyclovir Stop ampicillin and acyclovir 09/28/2021 (3) COVID-19: Code(s): U07.1 - COVID-19 Status: Acute Assessment and Plan: Patient tested positive for COVID 6 weeks back and has symptoms as resolve, currently no symptoms, on room air with good O2 sat (4) Hypothyroid: Code(s): E03.9 - Hypothyroidism, unspecified Status: Acute Assessment and Plan: Restarted patient on levothyroxine (5) Sensorineural hearing loss, unspecified: Code(s): H90.5 - Unspecified sensorineural hearing loss Status: Acute (6) Obstructive sleep apnea (adult) (pediatric): Code(s): G47.33 - Obstructive sleep apnea (adult) (pediatric) Status: Acute Assessment and Plan: Previously documented by Dr. Farias that the patient fell out of the habit of using her CPAP (7) Bacteremia: Code(s): R78.81 - Bacteremia Status: Acute Assessment and Plan: Gram-positive cocci in pairs x2 which came back as Streptococcus pneumonia Will repeat blood cultures x2 which has been negative so far TTE with EF 65-70% mildly increased left ventricular wall thickness normal septal wall motion grade 2 diastolic dysfunction mild MR and TR moderate pulmonary hypertension no vegetation (8) Hypertension: Code(s): I10 - Essential (primary) hypertension Status: Acute Assessment and Plan: Could be from use of Decadron. Which is getting. Today Will start amlodipine 5 mg daily and monitor blood pressure. No history of diagnosed hypertension prior to admission Additional Plan DVT prophylaxis: SCDs Code status: Full Code Subjective Date/time seen: 10/01/21 15:34 Interval history: HPI:This is a 61-year-old female with hypothyroidism and sleep apnea presenting to emergency department today via EMS fro
[2021-10-01] MEDS: WATER FOR IRRIGATION, STERILE 1,000 ML BOTTLE 1000 ML ×2 (19:49→19:50)
[2021-10-02] VITALS (9 sets, daily range): BP systolic 140–151; BP diastolic 62–92; PULSE 60–74; RESP 14–21; TEMP 36.3–36.7; O2SAT 94–98
[2021-10-02] MEDS: cefTRIAXone 2 GM in SODIUM CHLORIDE 0.9% IV 100 ML 200 ML IVPB ×2 (00:33→13:23)
[2021-10-02] MEDS: LEVOTHYROXINE SODIUM 100 MCG TABLET PO (05:41)
[2021-10-02] MEDS: amLODIPine BESYLATE 5 MG TABLET PO (08:37)
[2021-10-02 11:29] LABS: Vancomycin Trough 21.9 ug/mL (10.0-20.0)
--- NOTE | 2021-10-02 11:29 | P.PNIM_ITS ---
Progress Note: A&P Assessment and Plan (1) Meningitis: Code(s): G03.9 - Meningitis, unspecified Status: Acute Assessment and Plan: Patient presented with altered mental status, confusion, lethargy -CT scan of the brain was negative for any acute intracranial abnormalities -LP was performed and demonstrated elevated opening pressure with cloudy yellow fluid consistent with bacterial meningitis, (2555 total nucleated cells with 93% neutrophils, glucose less than 20, total protein greater than 600). -09/25: Patient was started on ceftriaxone, vancomycin, ampicillin and acyclovir for meningitis, also on dexamethasone. - Neurology evaluated the patient and is agreeable with the diagnosis of bacterial meningitis and antibiotic preference. -patient continues to improve Await finalization of culture continue broad-spectrum antibiotics for now Will stop acyclovir and ampicillin Continue on vancomycin and ceftriaxone as ordered Dexamethasone for total 4 days. And completes therapy stopped on 09/30/2021 LORENZO For ceftriaxone came back at 1 which is intermediate for meningitis treatment We will continue combination of vancomycin and ceftriaxone Duration treatment total 2 weeks start date of antibiotics 09/26/2021 repeat blood cultures has been negative Needs pneumococcal vaccination in future she she is likely to follow-up as an outpatient will recommend in 2 months she gets PCV 13 followed by Pneumovax 23 8 weeks after PCV 13. (2) Sepsis: Code(s): A41.9 - Sepsis, unspecified organism Status: Acute Assessment and Plan: Patient presented with sepsis, leukocytosis, elevated lactic acid, increased CRP -blood cultures growing Gram-positive cocci in pairs 2/2 bottles -LP also revealed meningitis -continue ceftriaxone, vancomycin, ampicillin and acyclovir Stop ampicillin and acyclovir 09/28/2021 (3) COVID-19: Code(s): U07.1 - COVID-19 Status: Acute Assessment and Plan: Patient tested positive for COVID 6 weeks back and has symptoms as resolve, currently no symptoms, on room air with good O2 sat (4) Hypothyroid: Code(s): E03.9 - Hypothyroidism, unspecified Status: Acute Assessment and Plan: Restarted patient on levothyroxine (5) Sensorineural hearing loss, unspecified: Code(s): H90.5 - Unspecified sensorineural hearing loss Status: Acute Assessment and Plan: This is chronic (6) Obstructive sleep apnea (adult) (pediatric): Code(s): G47.33 - Obstructive sleep apnea (adult) (pediatric) Status: Acute Assessment and Plan: Previously documented by Dr. Farias that the patient fell out of the habit of using her CPAP (7) Bacteremia: Code(s): R78.81 - Bacteremia Status: Acute Assessment and Plan: Gram-positive cocci in pairs x2 which came back as Streptococcus pneumonia Will repeat blood cultures x2 which has been negative so far TTE with EF 65-70% mildly increased left ventricular wall thickness normal septal wall motion grade 2 diastolic dysfunction mild MR and TR moderate pulmonary hypertension no vegetation (8) Hypertension: Code(s): I10 - Essential (primary) hypertension Status: Acute Assessment and Plan: Could be from use of Decadron since been stopped Started on amlodipine 5 mg daily and monitor blood pressure. No history of diagnosed hypertension prior to admission Additional Plan DVT prophylaxis: SCDs Code status: Full Code Subjective Date/time seen: 10/02/21 11:29 Interval history: HPI:This is a 61-year-old female with hyp
--- NOTE | 2021-10-02 11:36 | PHAR ---
10/02 VANCO TROUGH = 21.9, TARGET OF 15-20. DOSE & SCHEDULE CHANGED TO 2 GM Q12HR. WILL RECHECK LEVEL AM 10/04.
[2021-10-02] MEDS: polyethylene glycoL 3350 17 GM POWD.PACK PO (12:08)
--- NOTE | 2021-10-02 14:02 | PCNWS ---
Weekly nutritional screen. Patient screened in for 7 day length of stay. Current nutrition is a regular diet with reported intake of 100%. Patient is tolerating current diet with adequate intake. No nutritional needs at this time. No nutritional interventions at this time. Will follow up in 7 days if pt has not been D/C.
[2021-10-03] VITALS (10 sets, daily range): BP systolic 121–144; BP diastolic 68–86; PULSE 63–83; RESP 14–20; TEMP 36.3–37.3; O2SAT 94–98
[2021-10-03] MEDS: cefTRIAXone 2 GM in SODIUM CHLORIDE 0.9% IV 100 ML 200 ML IVPB ×2 (00:57→12:34)
[2021-10-03] MEDS: LEVOTHYROXINE SODIUM 100 MCG TABLET PO (05:49)
[2021-10-03 05:51] LABS: Basophils Percent Auto 0.2 % (0.2-1.2); Eosinophils Absolute Auto 0.4 K/mm3 (0-0.3); Eosinophils Percent Auto 4.4 % (0-4.4); Hematocrit 37.8 % (37.0-47.0); Hemoglobin 12.5 g/dL (12.0-15.0); Immature Granulocyte Absolute 0.19 K/mm3 (0.00-0.031); Immature Granulocyte Percent A 2.3 % (0-0.5); Lymphocytes Absolute Auto 1.54 K/mm3 (0.9-3.2); Mean Corpuscular HGB Conc 33.1 g/dl (32-36); Mean Corpuscular Hemoglobin 32.2 pg (26-34); Mean Corpuscular Volume 97.4 fl (80-100); Mean Platelet Volume 10.3 fl (7.4-10.4); Monocytes Absolute Auto 0.7 K/mm3 (0.1-0.6); Monocytes Percent Auto 8.4 % (2.6-8.5); Neutrophils Absolute Auto 5.3 K/mm3 (1.3-6.7); Neutrophils Percent Auto 65.7 % (45.5-73.1); Platelet Count Result 241 k/mm3 (150-375); Red Blood Count 3.88 M/mm3 (4.2-5.4); Red Cell Distribution Width 13.3 % (11.5-14.5); White Blood Count 8.1 K/mm3 (4.5-10.0)
[2021-10-03 06:04] LABS: Alanine Aminotransferase 51 U/L (4-35); Albumin Level 3.1 g/dL (3.5-5.1); Alkaline Phosphatase 58 U/L (38-126); Anion Gap 3 mmol/L (8-16); Aspartate Amino Transferase 19 U/L (14-36); Bilirubin,Total 0.6 mg/dL (0.2-1.3); Blood Urea Nitrogen 14 mg/dL (7-17); Calcium 7.9 mg/dL (8.4-10.2); Carbon Dioxide 33 mmol/L (22-30); Chloride 99 mmol/L (98-107); Estimated CRCL calculation 92 ml/min; Estimated Glomerular Filt Rate > 60; Glucose 102 mg/dL (65-110); Sodium 135 mmol/L (137-145)
[2021-10-03] MEDS: amLODIPine BESYLATE 5 MG TABLET PO (08:22)
[2021-10-03] MEDS: POTASSIUM CHLORIDE 20 MEQ TABLET 40 MEQ PO (08:31)
--- NOTE | 2021-10-03 11:42 | WPDNEUROPN ---
Progress Note: A&P Additional Plan sepsis with meningitis receiving treatment accordingly Time Spent With Patient Time with patient: 25 - 35 minutes Subjective Date/time seen: 10/03/21 11:42 61 years old right-handed female being treated for meningitis with sepsis, when she presented to emergency room initially with a change in the mental status and lethargy. Her CT scan of the head was normal but his spinal fluid studies were definitely abnormal SARS-CoV-2 COVID was positive on September 25, 2021, the blood culture was positive for Streptococcus pneumonia with negative for inducible clindamycin resistance and 1 blood culture was positive for Streptococcus pneumonia from a robotic and anaerobic bottles, her initial CBC was consistent of leukocytosis with white blood cells of 18.6 coming down to only 8.1 on October 03, 2021 and hemoglobin remained 12.5 with platelet count of 241 protime 12.6 with INR of 1.0, the vancomycin levels were monitored, CSF initially was cloudy yellow with 736 RBCs 2555 nucleated cells 93% neutrophils 5% lymphs 2% mono glucose was less than 20 and protein was more than 600 UA was cloudy 1+ glucose 1+ blood, chemistry staged fairly normal except most recent potassium is 3.0 patient receive ceftriaxone 2 g IV piggyback q.12 hours with vancomycin 2000 mg IV piggyback q.12 hours and acyclovir was discontinued Review of Systems Review of Systems: All systems reviewed & are unremarkable except as noted in HPI and below Exam Const: General: cooperative, healthy appearing, comfortable and no acute distress Nutritional Appearance: overweight Orientation/consciousness: oriented to person, oriented to place and oriented to time Limitations: no limitations HENMT: Head: normal to inspection and normocephalic Ears: hearing grossly normal bilaterally General nose exam: Normal external nose present Face and sinus: normal facial exam Mouth: Yes Normal oral and palatal mucosa present Eyes: General: appearance normal, both eyes and all related structures Visual Burciaga: normal visual burciaga by confrontation Alignment and Position: alignment normal Periorbital: periorbital findings normal Eyelids: eyelids normal Conjunctivae: conjunctivae normal Sclera: sclerae normal Cornea: corneas normal EOM: EOMs intact bilaterally Neck: Neck: normal visual inspection and no lymphadenopathy Resp: Effort & Inspection: normal respiratory effort and able to speak in complete sentences Auscultation: clear to auscultation bilaterally Cardio: Jugular venous distension: no JVD Rate: regular rate Rhythm: regular rhythm GI: Auscultation: normal bowel sounds Skin: General skin exam: normal color and no rashes or lesions noted Neuro: General: oriented to person, oriented to place and oriented to time Cranial nerves: Yes CN's II-XII intact bilaterally Cognition (Neuro): normal cognition Speech: normal speech Gait exam (Neuro): Normal gait present Motor exam (neuro): 5/5 motor strength present throughout Sensory Exam: normal sensation Deep tendon reflexes (DTR's): Right triceps reflex intensity grade: 1+, Left triceps reflex intensity grade: 1+, Rt Biceps (C5, C6): 1+, Left biceps reflex intensity grade: 1+, Right brachioradialis reflex intensity grade: 1+, Left brachioradialis reflex intensity grade: 1+, Right patellar reflex intensity grade: 1+, Left patellar reflex intensity grade: 1+, Right ankle reflex intensity grade: 1+ and Left ankle reflex intensity grade: 1+ Plantar Reflex Responses: downgoing: bilateral Coordination: [id number] test normal Psych: Appearance: grossly normal Mental Status: mental status grossly normal Speech and movement: Normal speech and movement present Affect: normal affect Attitude: cooperative Thought process: Normal thought process present Thought content: Yes Normal thought content present Insight: Good insight present (Psych) Judgement: Good judgement present (Psych) Objective Data Vital Signs Vital Signs:
--- NOTE | 2021-10-03 15:26 | PM.IMPN ---
Progress Note: A&P Assessment and Plan (1) Meningitis: Code(s): G03.9 - Meningitis, unspecified Status: Acute Assessment and Plan: Patient presented with altered mental status, confusion, lethargy -CT scan of the brain was negative for any acute intracranial abnormalities -LP was performed and demonstrated elevated opening pressure with cloudy yellow fluid consistent with bacterial meningitis, (2555 total nucleated cells with 93% neutrophils, glucose less than 20, total protein greater than 600). -09/25: Patient was started on ceftriaxone, vancomycin, ampicillin and acyclovir for meningitis, also on dexamethasone. - Neurology evaluated the patient and is agreeable with the diagnosis of bacterial meningitis and antibiotic preference. -patient continues to improve Await finalization of culture continue broad-spectrum antibiotics for now Will stop acyclovir and ampicillin Continue on vancomycin and ceftriaxone as ordered Dexamethasone for total 4 days. And completes therapy stopped on 09/30/2021 LORENZO For ceftriaxone came back at 1 which is intermediate for meningitis treatment We will continue combination of vancomycin and ceftriaxone Duration treatment total 2 weeks start date of antibiotics 09/26/2021 repeat blood cultures has been negative Needs pneumococcal vaccination in future she she is likely to follow-up as an outpatient will recommend in 2 months she gets PCV 13 followed by Pneumovax 23 8 weeks after PCV 13. (2) Sepsis: Code(s): A41.9 - Sepsis, unspecified organism Status: Acute Assessment and Plan: Patient presented with sepsis, leukocytosis, elevated lactic acid, increased CRP -blood cultures growing Gram-positive cocci in pairs 2/2 bottles -LP also revealed meningitis -continue ceftriaxone, vancomycin, ampicillin and acyclovir Stop ampicillin and acyclovir 09/28/2021 (3) COVID-19: Code(s): U07.1 - COVID-19 Status: Acute Assessment and Plan: Patient tested positive for COVID 6 weeks back and has symptoms as resolve, currently no symptoms, on room air with good O2 sat (4) Hypothyroid: Code(s): E03.9 - Hypothyroidism, unspecified Status: Acute Assessment and Plan: Restarted patient on levothyroxine (5) Sensorineural hearing loss, unspecified: Code(s): H90.5 - Unspecified sensorineural hearing loss Status: Acute Assessment and Plan: This is chronic (6) Obstructive sleep apnea (adult) (pediatric): Code(s): G47.33 - Obstructive sleep apnea (adult) (pediatric) Status: Acute Assessment and Plan: Previously documented by Dr. Farias that the patient fell out of the habit of using her CPAP (7) Bacteremia: Code(s): R78.81 - Bacteremia Status: Acute Assessment and Plan: Gram-positive cocci in pairs x2 which came back as Streptococcus pneumonia Will repeat blood cultures x2 which has been negative so far TTE with EF 65-70% mildly increased left ventricular wall thickness normal septal wall motion grade 2 diastolic dysfunction mild MR and TR moderate pulmonary hypertension no vegetation (8) Hypertension: Code(s): I10 - Essential (primary) hypertension Status: Acute Assessment and Plan: Could be from use of Decadron since been stopped Started on amlodipine 5 mg daily and monitor blood pressure. No history of diagnosed hypertension prior to admission Subjective Date/time seen: 10/03/21 15:26 Interval history: HPI:This is a 61-year-old female with hypothyroidism and sleep apnea presenting to emergency department today via EMS from home for evaluation of weakness, lethargy, and confusion. She is alert to self only at this time and as such all the following is obtained via a review of her electronic medical records as well as discussions with her and son via phone. Yesterday afternoon the patient's went out for a walk and when he returned the patient complained to him of
[2021-10-03] MEDS: ACETAMINOPHEN 500 MG TABLET PO (21:55)
[2021-10-04] VITALS (11 sets, daily range): BP systolic 116–145; BP diastolic 65–84; PULSE 64–80; RESP 14–20; TEMP 36.1–37.6; O2SAT 95–100
[2021-10-04] MEDS: cefTRIAXone 2 GM in SODIUM CHLORIDE 0.9% IV 100 ML 200 ML IVPB ×2 (01:08→12:00)
[2021-10-04 03:58] LABS: Anion Gap 6 mmol/L (8-16); Blood Urea Nitrogen 16 mg/dL (7-17); Calcium 8.2 mg/dL (8.4-10.2); Carbon Dioxide 30 mmol/L (22-30); Chloride 102 mmol/L (98-107); Estimated CRCL calculation 68 ml/min; Estimated Glomerular Filt Rate > 60; Glucose 99 mg/dL (65-110); Magnesium 2.2 mg/dL (1.6-2.3); Potassium 3.3 mmol/L (3.4-5.0); Sodium 138 mmol/L (137-145)
[2021-10-04 04:06] LABS: Hematocrit 38.7 % (37.0-47.0); Hemoglobin 12.6 g/dL (12.0-15.0); Mean Corpuscular HGB Conc 32.6 g/dl (32-36); Mean Corpuscular Hemoglobin 31.7 pg (26-34); Mean Corpuscular Volume 97.5 fl (80-100); Mean Platelet Volume 10.6 fl (7.4-10.4); Platelet Count Result 188 k/mm3 (150-375); Red Blood Count 3.97 M/mm3 (4.2-5.4); Red Cell Distribution Width 13.3 % (11.5-14.5); White Blood Count 10.8 K/mm3 (4.5-10.0)
[2021-10-04 05:10] LABS: Vancomycin Trough 19.1 ug/mL (10.0-20.0)
[2021-10-04] MEDS: LEVOTHYROXINE SODIUM 100 MCG TABLET PO (05:55)
[2021-10-04] MEDS: POTASSIUM CHLORIDE 20 MEQ TABLET 40 MEQ PO (08:30)
[2021-10-04] MEDS: amLODIPine BESYLATE 5 MG TABLET PO (08:30)
[2021-10-04] MEDS: ACETAMINOPHEN 500 MG TABLET PO ×2 (12:01→21:07)
[2021-10-04] MEDS: polyethylene glycoL 3350 17 GM POWD.PACK PO (12:38)
--- NOTE | 2021-10-04 12:43 | WPDNEUROPN ---
Progress Note: A&P Additional Plan bacterial meningitis with sepsis receiving the treatment as such though she was recovering fairly well since yesterday she has not feeling well needs to be observed further and continue the treatment as such Time Spent With Patient Time with patient: 15 - 25 minutes Subjective Date/time seen: 10/04/21 12:43 61 years old right-handed female being treated for the meningitis yesterday she was feeling good this morning she is complaining of headache and does not feel very good additionally she has the COVID-19 positive Review of Systems Review of Systems: All systems reviewed & are unremarkable except as noted in HPI and below Exam Const: General: cooperative, alert and in distress Nutritional Appearance: overweight Orientation/consciousness: oriented to person, oriented to place and oriented to time Limitations: no limitations Eyes: General: appearance normal, both eyes and all related structures Visual Burciaga: normal visual burciaga by confrontation Alignment and Position: alignment normal Periorbital: periorbital findings normal Eyelids: eyelids normal Conjunctivae: conjunctivae normal Cornea: corneas normal Pupils: Equal, round and reactive pupils present EOM: EOMs intact bilaterally Neck: Neck: full ROM Resp: Effort & Inspection: able to speak in complete sentences Auscultation: clear to auscultation bilaterally Neuro: General: oriented to person, oriented to place and oriented to time Cranial nerves: Yes CN's II-XII intact bilaterally Cognition (Neuro): normal cognition Speech: normal speech Gait exam (Neuro): Normal gait present Motor exam (neuro): 5/5 motor strength present throughout Sensory Exam: normal sensation Deep tendon reflexes (DTR's): Right triceps reflex intensity grade: 1+, Left triceps reflex intensity grade: 1+, Rt Biceps (C5, C6): 1+, Left biceps reflex intensity grade: 1+, Right brachioradialis reflex intensity grade: 1+, Left brachioradialis reflex intensity grade: 1+, Right patellar reflex intensity grade: 1+, Left patellar reflex intensity grade: 1+, Right ankle reflex intensity grade: 1+ and Left ankle reflex intensity grade: 1+ Plantar Reflex Responses: downgoing: bilateral Psych: Appearance: grossly normal Objective Data Vital Signs Vital Signs: Vital Signs - 24 hr 10/03/21 16:00 10/03/21 18:05 10/03/21 20:00 Temperature 36.5 C 37.3 C Pulse Rate 73 80 Respiratory Rate 18 20 Blood Pressure 134/74 142/76 H Pulse Oximetry 97 98 96 10/03/21 20:40 10/03/21 23:00 10/04/21 00:00 Temperature 36.8 C Pulse Rate 77 83 77 Respiratory Rate 16 14 16 Blood Pressure 145/84 H Pulse Oximetry 97 94 97 10/04/21 03:13 10/04/21 04:00 10/04/21 07:43 Temperature 36.2 C L Pulse Rate 78 65 Respiratory Rate 16 18 Blood Pressure 124/65 Pulse Oximetry 96 98 95 10/04/21 08:00 10/04/21 12:00 Temperature 36.3 C L 37.4 C Pulse Rate 64 75 Respiratory Rate 14 18 Blood Pressure 116/73 141/69 H Pulse Oximetry 96 98 Intake/Output Intake/Output: Intake & Output 10/01/21 10/02/21 10/03/21 10/04/21 23:59 23:59 23:59 23:59 Intake Total 2420 1710 2200 700 Output Total 3400 1300 500 400 Balance -504 685 0447 300 Meds/Results Medications: Active Medications Generic Name Dose Route Start Last Admin Trade Name Freq PRN Reason Stop Dose Admin Acetaminophen 500 mg 09/26/21 11:06 10/04/21 12:01 Acetaminophen 500 Mg Tablet PO 500 mg Q6H PRN Administration Mild Pain (1-3) or Fever Amlodipine Besylate 5 mg 09/30/21 10:00 10/04/21 08:30 Amlodipine Besylate 5 Mg Tablet PO 5 mg QAM JARED Administration Ceftriaxone Sodium 2 gm/ 100 mls @ 200 mls/hr 09/26/21 01:00 10/04/21 12:00 Sodium Chloride IVPB 10/04/21 14:00 200 mls/hr Q12H JARED Administration Vancomycin HCl 2,000 mg in 500 mls @ 250 mls/hr 10/04/21 18:00 Vancomycin 2,000 Mg/D5w 500 Ml IVPB Q12H JARED Ceftriaxone Sodium 2 gm/ 100 mls @ 200 mls/hr
[2021-10-05 02:55] VITALS: PULSE 72; RESP 15; O2SAT 95
[2021-10-05 03:36] VITALS: BP 125/71; PULSE 82; RESP 18; TEMP 36.5; O2SAT 98
[2021-10-05] MEDS: LEVOTHYROXINE SODIUM 100 MCG TABLET PO (05:31)
[2021-10-05 05:45] LABS: Hematocrit 39.4 % (37.0-47.0); Hemoglobin 12.8 g/dL (12.0-15.0); Mean Corpuscular HGB Conc 32.5 g/dl (32-36); Mean Corpuscular Hemoglobin 31.8 pg (26-34); Mean Platelet Volume 10.4 fl (7.4-10.4); Platelet Count Result 198 k/mm3 (150-375); Red Blood Count 4.02 M/mm3 (4.2-5.4); Red Cell Distribution Width 13.4 % (11.5-14.5); White Blood Count 14.3 K/mm3 (4.5-10.0)
[2021-10-05 06:35] LABS: Anion Gap 5 mmol/L (8-16); Blood Urea Nitrogen 14 mg/dL (7-17); Calcium 8.4 mg/dL (8.4-10.2); Carbon Dioxide 27 mmol/L (22-30); Chloride 101 mmol/L (98-107); Estimated CRCL calculation 71 ml/min; Estimated Glomerular Filt Rate > 60; Glucose 109 mg/dL (65-110); Potassium 3.8 mmol/L (3.4-5.0); Sodium 133 mmol/L (137-145)
[2021-10-05] MEDS: amLODIPine BESYLATE 5 MG TABLET PO (08:30)
--- NOTE | 2021-10-05 12:57 | WPDNEUROPN ---
Subjective Date/time seen: 10/05/21 12:57 continues to be awake alert cooperative in no obvious acute distress neck supple with no meningeal signs, ear nose throat examination normal, heart regular lungs clear abdomen soft neurologically awake alert follows instructions fairly well his speech nor dysphasic no dysarthric not dysphonic the cranial examination is normal motor examination reveals her to have no focal motor deficit reflexes symmetrical plantars are downgoing complains of mild headache compared to yesterday's better treatment is being continued as such Objective Data Vital Signs Vital Signs: Vital Signs - 24 hr 10/04/21 16:00 10/04/21 20:00 10/04/21 23:09 Temperature 36.2 C L 37.6 C Pulse Rate 70 80 74 Respiratory Rate 16 20 17 Blood Pressure 118/77 137/72 Pulse Oximetry 98 100 95 10/04/21 23:10 10/04/21 23:46 10/05/21 02:55 Temperature 36.1 C L Pulse Rate 74 72 Respiratory Rate 18 15 Blood Pressure 136/84 Pulse Oximetry 95 95 95 10/05/21 03:36 Temperature 36.5 C Pulse Rate 82 Respiratory Rate 18 Blood Pressure 125/71 Pulse Oximetry 98 Intake/Output Intake/Output: Intake & Output 10/02/21 10/03/21 10/04/21 10/05/21 23:59 23:59 23:59 23:59 Intake Total 1710 2200 2200 Output Total 1300 549 443 7133 Balance 410 1700 1600 -1700 Meds/Results Medications: Active Medications Generic Name Dose Route Start Last Admin Trade Name Freq PRN Reason Stop Dose Admin Acetaminophen 500 mg 09/26/21 11:06 10/04/21 21:07 Acetaminophen 500 Mg Tablet PO 500 mg Q6H PRN Administration Mild Pain (1-3) or Fever Amlodipine Besylate 5 mg 09/30/21 10:00 10/05/21 08:30 Amlodipine Besylate 5 Mg Tablet PO 5 mg QAM JARED Administration Vancomycin HCl 2,000 mg in 500 mls @ 250 mls/hr 10/04/21 18:00 10/05/21 05:20 Vancomycin 2,000 Mg/D5w 500 Ml IVPB 125 mls/hr Q12H JARED Administration Ceftriaxone Sodium 2 gm/ 100 mls @ 200 mls/hr 10/05/21 13:00 Dextrose IVPB 10/06/21 12:59 Q12H JARED Ceftriaxone Sodium 2 gm/ 100 mls @ 200 mls/hr 10/06/21 13:00 Sodium Chloride IVPB Q12H JARED Levothyroxine Sodium 100 mcg 09/26/21 06:30 10/05/21 05:31 Levothyroxine Sodium 100 Mcg Tablet PO 100 mcg DAILY@0630 JARED Administration Perflutren Lipid Microsphere 0 ml 09/28/21 13:19 Perflutren Lipid Microspheres 1.5 Ml Vial Diluted To 10 Ml Total Volume IV PUSH ONCE PRN adequate visualization Protocol Polyethylene Glycol 17 gm 10/02/21 11:29 10/04/21 12:38 Polyethylene Glycol 3350 17 Gm Powd.Pack PO 17 gm QAM PRN Administration Constipation Sodium Chloride 1 spray 09/28/21 13:38 09/28/21 15:09 Saline 0.65% Vic Soln 44 Ml Btl NASAL 1 spray Q6HR PRN Administration Congestion Radiology Results: ITS Impressions Head CT 09/25/21 10:06 IMPRESSION: 1. No acute intracranial abnormality. Chest X-Ray 09/25/21 10:09 IMPRESSION: 1. Mild airspace opacities at the left costophrenic angle and lateral right midlung zone which could represent atelectasis and/or pneumonia. Lumbar Puncture Fluoroscopy 09/25/21 12:18 IMPRESSION: 1. Status post fluoroscopic guided lumbar puncture. 2. Elevated opening pressure and cloudy CSF, suspicious for meningitis. Follow-up results. Labs Labs: Laboratory Results - last 24 hr 10/05/21 10/05/21 05:30 05:30 WBC 14.3 H RBC 4.02 L Hgb 12.8 Hct 39.4 MCV 98.0 MCH 31.8 MCHC 32.5 RDW 13.4 Plt Count 198 MPV 10.4 Sodium 133 L Potassium 3.8 Chloride 101 Carbon Dioxide 27 Anion Gap 5 L BUN 14 Creatinine 0.80 Estim Creat Clear Calc 71 Estimated GFR > 60 Glucose 109 Calcium 8.4 Quality VTE Prophylaxis VTE prophylaxis: mechanical ordered Amg Follow-up Billing Inpatient Follow-up [id number] [facility]
[2021-10-05 14:00] VITALS: BP 116/63; PULSE 89; RESP 14; TEMP 37.4; O2SAT 97
[2021-10-05 20:22] VITALS: O2SAT 96
[2021-10-05 21:55] VITALS: BP 138/83; PULSE 81; RESP 16; TEMP 36.7; O2SAT 96
[2021-10-05 23:06] VITALS: PULSE 82; RESP 16; O2SAT 96
[2021-10-06 03:38] VITALS: RESP 16; O2SAT 95
[2021-10-06 05:39] LABS: Hematocrit 36.1 % (37.0-47.0); Hemoglobin 11.9 g/dL (12.0-15.0); Mean Corpuscular Hemoglobin 31.2 pg (26-34); Mean Corpuscular Volume 94.5 fl (80-100); Mean Platelet Volume 10.8 fl (7.4-10.4); Platelet Count Result 163 k/mm3 (150-375); Red Blood Count 3.82 M/mm3 (4.2-5.4); Red Cell Distribution Width 13.4 % (11.5-14.5); White Blood Count 15.2 K/mm3 (4.5-10.0)
[2021-10-06 05:51] LABS: Anion Gap 5 mmol/L (8-16); Blood Urea Nitrogen 13 mg/dL (7-17); Calcium 8.2 mg/dL (8.4-10.2); Carbon Dioxide 30 mmol/L (22-30); Chloride 99 mmol/L (98-107); Estimated CRCL calculation 58 ml/min; Estimated Glomerular Filt Rate 56; Glucose 113 mg/dL (65-110); Potassium 3.6 mmol/L (3.4-5.0); Sodium 134 mmol/L (137-145)
[2021-10-06 06:00] VITALS: BP 121/66; PULSE 79; RESP 20; TEMP 37.4; O2SAT 94
[2021-10-06] MEDS: LEVOTHYROXINE SODIUM 100 MCG TABLET PO (06:35)
[2021-10-06 08:00] VITALS: O2SAT 94
[2021-10-06] MEDS: amLODIPine BESYLATE 5 MG TABLET PO (08:03)
--- NOTE | 2021-10-06 12:47 | WPDNEUROPN ---
Subjective Date/time seen: 10/06/21 12:48 remains awake alert communicative with no obvious signs of distress or depression, his speech nor dysphasic not dysarthric, pupils round regular reacting to light equally, feels the vision of full in all 4 quadrants, extraocular movements are full with no nystagmus, facial sensation intact, face symmetrical, tongue midline, with no fasciculation, motor examination revealed normal strength and tone in upper and lower extremities with no abnormal movements, all the pros and cons of the diagnosis were discussed with her she will be discharged after the 15 days of treatment with no decline and will be followed in the office in 6 weeks on the day of discharge she will have a CT scan of the head and also an EEG if any question arises please do not hesitate to contact me Objective Data Vital Signs Vital Signs: Vital Signs - 24 hr 10/05/21 14:00 10/05/21 20:22 10/05/21 21:55 Temperature 37.4 C 36.7 C Pulse Rate 89 81 Respiratory Rate 14 16 Blood Pressure 116/63 138/83 Pulse Oximetry 97 96 96 10/05/21 23:06 10/06/21 03:38 10/06/21 06:00 Temperature 37.4 C Pulse Rate 82 79 Respiratory Rate 16 16 20 Blood Pressure 121/66 Pulse Oximetry 96 95 94 10/06/21 08:00 Temperature Pulse Rate Respiratory Rate Blood Pressure Pulse Oximetry 94 Intake/Output Intake/Output: Intake & Output 10/03/21 10/04/21 10/05/21 10/06/21 23:59 23:59 23:59 23:59 Intake Total 2200 2200 2130 320 Output Total 752 472 1527 700 Balance 1700 1600 430 -380 Meds/Results Medications: Active Medications Generic Name Dose Route Start Last Admin Trade Name Freq PRN Reason Stop Dose Admin Acetaminophen 500 mg 09/26/21 11:06 10/04/21 21:07 Acetaminophen 500 Mg Tablet PO 500 mg Q6H PRN Administration Mild Pain (1-3) or Fever Amlodipine Besylate 5 mg 09/30/21 10:00 10/06/21 08:03 Amlodipine Besylate 5 Mg Tablet PO 5 mg QAM JARED Administration Apixaban 10 mg 10/06/21 13:00 Apixaban 5 Mg Tablet PO 10/12/21 21:01 Q12HR JARED Apixaban 5 mg 10/13/21 09:00 Apixaban 5 Mg Tablet PO Q12HR JARED Ceftriaxone Sodium 2 gm/ 100 mls @ 200 mls/hr 10/05/21 13:00 10/06/21 01:04 Dextrose IVPB 10/06/21 12:59 200 mls/hr Q12H JARED Administration Vancomycin HCl 2,000 mg in 500 mls @ 250 mls/hr 10/06/21 18:00 Vancomycin 2,000 Mg/D5w 500 Ml IVPB Q12H JARED Levothyroxine Sodium 100 mcg 09/26/21 06:30 10/06/21 06:35 Levothyroxine Sodium 100 Mcg Tablet PO 100 mcg DAILY@0630 JARED Administration Perflutren Lipid Microsphere 0 ml 09/28/21 13:19 Perflutren Lipid Microspheres 1.5 Ml Vial Diluted To 10 Ml Total Volume IV PUSH ONCE PRN adequate visualization Protocol Polyethylene Glycol 17 gm 10/02/21 11:29 10/04/21 12:38 Polyethylene Glycol 3350 17 Gm Powd.Pack PO 17 gm QAM PRN Administration Constipation Sodium Chloride 1 spray 09/28/21 13:38 09/28/21 15:09 Saline 0.65% Vic Soln 44 Ml Btl NASAL 1 spray Q6HR PRN Administration Congestion Radiology Results: ITS Impressions Head CT 09/25/21 10:06 IMPRESSION: 1. No acute intracranial abnormality. Chest X-Ray 09/25/21 10:09 IMPRESSION: 1. Mild airspace opacities at the left costophrenic angle and lateral right midlung zone which could represent atelectasis and/or pneumonia. Lumbar Puncture Fluoroscopy 09/25/21 12:18 IMPRESSION: 1. Status post fluoroscopic guided lumbar puncture. 2. Elevated opening pressure and cloudy CSF, suspicious for meningitis. Follow-up results. Venous Doppler Study 10/06/21 11:41 IMPRESSION: 1. Deep vein thrombosis involving left soleus vein. I called this result to Dr. Mckee. Labs Labs: Laboratory Results - last 24 hr 10/06/21 10/06/21 05:16 05:16 WBC 15.2 H RBC 3.82 L Hgb 11.9 L Hct 36.1 L MCV 94.5 MCH 31.2 MCHC 33.0 RDW 13.4 Plt Count 163 MPV
[2021-10-06 14:00] VITALS: BP 122/72; PULSE 83; RESP 18; TEMP 36.7; O2SAT 100
[2021-10-06] MEDS: APIXABAN 5 MG TABLET 10 MG PO (14:11)
[2021-10-06 15:07] LABS: INR 1.1; Prothrombin Time 13.3 Seconds (11.1-14.7)
[2021-10-06] MEDS: ACETAMINOPHEN 500 MG TABLET PO (15:08)
[2021-10-06] MEDS: WARFARIN (*PBKC) 5 MG TABLET PO (17:06)
[2021-10-06 21:41] VITALS: BP 143/73; PULSE 91; RESP 16; TEMP 37.3; O2SAT 94
[2021-10-06 22:00] VITALS: PULSE 76; RESP 16; O2SAT 97
[2021-10-07] VITALS (8 sets, daily range): BP systolic 119–138; BP diastolic 69–76; PULSE 73–87; RESP 14–18; TEMP 36.6–37; O2SAT 95–98
[2021-10-07] MEDS: ENOXAPARIN 100 MG/ML SYRINGE 96 MG SUB-Q ×3 (00:14→23:35)
[2021-10-07 05:40] LABS: Hematocrit 36.8 % (37.0-47.0); Immature Platelet Fraction Pct 14.4 % (0.9-11.2); Mean Corpuscular HGB Conc 32.6 g/dl (32-36); Mean Corpuscular Hemoglobin 31.6 pg (26-34); Mean Corpuscular Volume 96.8 fl (80-100); Mean Platelet Volume 10.6 fl (7.4-10.4); Platelet Count Result 108 k/mm3 (150-375); Red Cell Distribution Width 13.5 % (11.5-14.5); White Blood Count 12.3 K/mm3 (4.5-10.0)
[2021-10-07 05:49] LABS: INR 1.5; Prothrombin Time 17.6 Seconds (11.1-14.7)
[2021-10-07 05:52] LABS: Anion Gap 5 mmol/L (8-16); Blood Urea Nitrogen 15 mg/dL (7-17); Calcium 8.4 mg/dL (8.4-10.2); Carbon Dioxide 29 mmol/L (22-30); Chloride 99 mmol/L (98-107); Estimated CRCL calculation 45 ml/min; Estimated Glomerular Filt Rate 41; Glucose 115 mg/dL (65-110); Potassium 3.5 mmol/L (3.4-5.0); Sodium 133 mmol/L (137-145)
[2021-10-07 06:18] LABS: Vancomycin Trough 28.2 ug/mL (10.0-20.0)
[2021-10-07] MEDS: LEVOTHYROXINE SODIUM 100 MCG TABLET PO (06:33)
[2021-10-07] MEDS: POTASSIUM CHLORIDE 20 MEQ TABLET 40 MEQ PO (09:31)
[2021-10-07] MEDS: amLODIPine BESYLATE 5 MG TABLET PO (09:32)
[2021-10-07] MEDS: polyethylene glycoL 3350 17 GM POWD.PACK PO (09:38)
[2021-10-07] MEDS: cefTRIAXone 2 GM in SODIUM CHLORIDE 0.9% IV 100 ML 200 ML IVPB (15:02)
[2021-10-07] MEDS: LORATADINE 10 MG TABLET PO (16:19)
[2021-10-07] MEDS: WARFARIN (*PBKC) 5 MG TABLET PO (17:30)
[2021-10-07] MEDS: ACETAMINOPHEN 500 MG TABLET PO (21:23)
[2021-10-08] VITALS (10 sets, daily range): BP systolic 114–143; BP diastolic 64–88; PULSE 78–81; RESP 14–18; TEMP 36.3–37.9; O2SAT 94–100
[2021-10-08] MEDS: cefTRIAXone 2 GM in SODIUM CHLORIDE 0.9% IV 100 ML 200 ML IVPB ×2 (02:40→15:37)
[2021-10-08 05:19] LABS: Hematocrit 35.6 % (37.0-47.0); Hemoglobin 11.7 g/dL (12.0-15.0); Mean Corpuscular HGB Conc 32.9 g/dl (32-36); Mean Corpuscular Hemoglobin 31.5 pg (26-34); Mean Platelet Volume 10.6 fl (7.4-10.4); Platelet Count Result 167 k/mm3 (150-375); Red Blood Count 3.71 M/mm3 (4.2-5.4); Red Cell Distribution Width 13.4 % (11.5-14.5); White Blood Count 9.5 K/mm3 (4.5-10.0)
[2021-10-08 05:33] LABS: Anion Gap 8 mmol/L (8-16); Blood Urea Nitrogen 16 mg/dL (7-17); Calcium 8.6 mg/dL (8.4-10.2); Carbon Dioxide 30 mmol/L (22-30); Chloride 97 mmol/L (98-107); Estimated CRCL calculation 41 ml/min; Estimated Glomerular Filt Rate 38; Glucose 99 mg/dL (65-110); Potassium 3.7 mmol/L (3.4-5.0); Sodium 135 mmol/L (137-145)
[2021-10-08 05:34] LABS: INR 1.3; Prothrombin Time 15.7 Seconds (11.1-14.7)
[2021-10-08] MEDS: LEVOTHYROXINE SODIUM 100 MCG TABLET PO (05:36)
[2021-10-08] MEDS: amLODIPine BESYLATE 5 MG TABLET PO (08:37)
[2021-10-08] MEDS: LORATADINE 10 MG TABLET PO (08:38)
--- NOTE | 2021-10-08 10:27 | P.PNIM_ITS ---
Progress Note: A&P Assessment and Plan (1) Meningitis: Code(s): G03.9 - Meningitis, unspecified Status: Acute Assessment and Plan: Patient presented with altered mental status, confusion, lethargy -CT scan of the brain was negative for any acute intracranial abnormalities -LP was performed and demonstrated elevated opening pressure with cloudy yellow fluid consistent with bacterial meningitis, (2555 total nucleated cells with 93% neutrophils, glucose less than 20, total protein greater than 600). -09/25: Patient was started on ceftriaxone, vancomycin, ampicillin and acyclovir for meningitis, also on dexamethasone. - Neurology evaluated the patient and is agreeable with the diagnosis of bacterial meningitis and antibiotic preference. -patient continues to improve Await finalization of culture continue broad-spectrum antibiotics for now Will stop acyclovir and ampicillin Continue on vancomycin and ceftriaxone as ordered Dexamethasone for total 4 days. And completes therapy stopped on 09/30/2021 LORENZO For ceftriaxone came back at 1 which is intermediate for meningitis treatment We will continue combination of vancomycin and ceftriaxone Duration treatment total 2 weeks start date of antibiotics 09/26/2021 repeat blood cultures has been negative Needs pneumococcal vaccination in future she she is likely to follow-up as an outpatient will recommend in 2 months she gets PCV 13 followed by Pneumovax 23 8 weeks after PCV 13. (2) Sepsis: Code(s): A41.9 - Sepsis, unspecified organism Status: Acute Assessment and Plan: Patient presented with sepsis, leukocytosis, elevated lactic acid, increased CRP -blood cultures growing Gram-positive cocci in pairs 2/2 bottles -LP also revealed meningitis -continue ceftriaxone, vancomycin, ampicillin and acyclovir Stop ampicillin and acyclovir 09/28/2021 (3) COVID-19: Code(s): U07.1 - COVID-19 Status: Acute Assessment and Plan: Patient tested positive for COVID 6 weeks back and has symptoms as resolve, currently no symptoms, on room air with good O2 sat (4) Hypothyroid: Code(s): E03.9 - Hypothyroidism, unspecified Status: Acute Assessment and Plan: Restarted patient on levothyroxine (5) Sensorineural hearing loss, unspecified: Code(s): H90.5 - Unspecified sensorineural hearing loss Status: Acute Assessment and Plan: This is chronic (6) Obstructive sleep apnea (adult) (pediatric): Code(s): G47.33 - Obstructive sleep apnea (adult) (pediatric) Status: Acute Assessment and Plan: Previously documented by Dr. Farias that the patient fell out of the habit of using her CPAP (7) Bacteremia: Code(s): R78.81 - Bacteremia Status: Acute Assessment and Plan: Gram-positive cocci in pairs x2 which came back as Streptococcus pneumonia Will repeat blood cultures x2 which has been negative so far TTE with EF 65-70% mildly increased left ventricular wall thickness normal septal wall motion grade 2 diastolic dysfunction mild MR and TR moderate pulmonary hypertension no vegetation (8) Hypertension: Code(s): I10 - Essential (primary) hypertension Status: Acute Assessment and Plan: Could be from use of Decadron since been stopped Started on amlodipine 5 mg daily and monitor blood pressure. No history of diagnosed hypertension prior to admission Subjective Date/time seen: 10/08/21 10:27 Interval history: HPI:This is a 61-year-old female with hypothyroidism and sleep apnea presenting to emergency department today via EMS from home for
[2021-10-08] MEDS: ENOXAPARIN 100 MG/ML SYRINGE 96 MG SUB-Q (11:50)
[2021-10-08] MEDS: ACETAMINOPHEN 500 MG TABLET PO ×2 (12:55→21:09)
[2021-10-08] MEDS: WARFARIN (*PBKC) 7.5 MG TABLET PO (17:59)
[2021-10-09] VITALS (8 sets, daily range): BP systolic 114–135; BP diastolic 71–73; PULSE 79–86; RESP 16–18; TEMP 30.3–38.3; O2SAT 94–98
[2021-10-09] MEDS: ENOXAPARIN 100 MG/ML SYRINGE 96 MG SUB-Q ×3 (00:01→23:07)
[2021-10-09] MEDS: cefTRIAXone 2 GM in SODIUM CHLORIDE 0.9% IV 100 ML 200 ML IVPB ×2 (03:00→15:24)
[2021-10-09 05:41] LABS: Hematocrit 34.8 % (37.0-47.0); Hemoglobin 11.1 g/dL (12.0-15.0); Immature Platelet Fraction Pct 13.9 % (0.9-11.2); Mean Corpuscular HGB Conc 31.9 g/dl (32-36); Mean Corpuscular Hemoglobin 31.8 pg (26-34); Mean Corpuscular Volume 99.7 fl (80-100); Mean Platelet Volume 10.8 fl (7.4-10.4); Platelet Count Result 148 k/mm3 (150-375); Red Blood Count 3.49 M/mm3 (4.2-5.4); Red Cell Distribution Width 13.5 % (11.5-14.5); White Blood Count 7.3 K/mm3 (4.5-10.0)
[2021-10-09 05:45] LABS: Anion Gap 6 mmol/L (8-16); Blood Urea Nitrogen 17 mg/dL (7-17); Calcium 8.3 mg/dL (8.4-10.2); Carbon Dioxide 30 mmol/L (22-30); Chloride 98 mmol/L (98-107); Estimated CRCL calculation 41 ml/min; Estimated Glomerular Filt Rate 38; Glucose 98 mg/dL (65-110); Potassium 3.4 mmol/L (3.4-5.0); Sodium 134 mmol/L (137-145)
[2021-10-09 05:48] LABS: INR 1.5; Prothrombin Time 17.6 Seconds (11.1-14.7)
[2021-10-09] MEDS: ACETAMINOPHEN 500 MG TABLET PO ×2 (06:06→23:06)
[2021-10-09] MEDS: LEVOTHYROXINE SODIUM 100 MCG TABLET PO (06:08)
[2021-10-09] MEDS: amLODIPine BESYLATE 5 MG TABLET PO (08:21)
[2021-10-09] MEDS: LORATADINE 10 MG TABLET PO (08:21)
[2021-10-09 11:54] LABS: Add Urine Microscopic? YES; Amorphous Sediment Urine Moderate; Appearance Urine Turbid (Clear); Bilirubin Urine Negative (Negative); Blood Urine 3+ (Negative); Color Urine Yellow (Yellow); Glucose Urine UA Negative (Negative); Ketones Urine Negative (Negative); Leukocyte Esterase Ur Negative LEU/UL (Negative); Nitrate Urine Negative (Negative); Protein Urine 2+ mg/dL (Negative); RBC Urine >75 /hpf (0-2); Specific Grav Ur 1.013 (1.001-1.035); Squamous Epithelial Cell Urine Many /hpf (Few); Urobilinogen Urine Negative mg/dL (<2.0)
--- NOTE | 2021-10-09 11:55 | WPDNEURCNPN ---
Consult date: 10/09/21 HPI: Yancy Jalloh is a 61 year old female with last day of treatment for the sepsis , meningitis, had an EEG which revealed no evidence of any paroxysmal activity or any focal slowing and CT scan of the head is also normal with no evidence of any space-occupying lesion or hydrocephalus, last CBC with WBC 7.3 hemoglobin 11.1 platelet count 148, normal electrolytes with BUN 17 but creatinine 1.40 compared to initial of 0.80 and GFR of only 38 plan is being discharged tomorrow morning with these abnormalities lab needs to be kept under consideration and a follow-up with a family physician as well PMFSH Past Medical History Medical History Diverticulosis Female genital prolapse Hearing loss Hyperlipidemia, unspecified Hypothyroidism Malignant neoplasm of colon without distant metastasis Metabolic syndrome Morbid obesity Murmur, cardiac Nicotine dependence, unspecified, uncomplicated Obstructive sleep apnea Sensorineural hearing loss, unspecified Unspecified vitamin D deficiency Surgical History Surgical History History of right hip replacement Family History Family History Father Hypertension Family history of aortic aneurysm Mother Hypertension Cerebrovascular accident Sibling Family history of lung cancer Other Family history of pancreatic cancer Social History Social History Social History: Surrogate decision maker: Mendoza Jalloh, spouse. Code status: Full code. 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 Meds Home Medications and Allergies Home Medications Medication Instructions Recorded Confirmed Type calcium carbonate 500 mg calcium 500 mg PO DAILY 10/15/19 09/25/21 History (1,250 mg) tablet cholecalciferol (vitamin D3) 25 1,000 unit PO DAILY 10/15/19 09/25/21 History mcg (1,000 unit) capsule acetaminophen 325 mg tablet 975 mg PO BID tablet 05/22/21 09/25/21 History diphenhydramine 25 1 tablet PO QHS 05/22/21 09/25/21 History mg-acetaminophen 500 mg tablet levothyroxine [Synthroid] 100 mcg PO DAILY 09/25/21 09/25/21 History Allergies Allergy/AdvReac Type Severity Reaction Status Date / Time bupropion AdvReac Intermediate Itching Verified 09/25/21 10:13 Vital Signs Vital Signs - 24 hr 10/08/21 12:55 10/08/21 14:00 10/08/21 19:12 Temperature 37.8 C H 37.8 C H 36.6 C Pulse Rate 81 Respiratory Rate 14 Blood Pressure 114/64 Pulse Oximetry 94 10/08/21 21:09 10/08/21 22:00 10/08/21 22:10 Temperature 37.9 C H 37.9 C H 36.3 C L Pulse Rate 78 Respiratory Rate 16 Blood Pressure 120/73 Pulse Oximetry 99 10/09/21 06:00 10/09/21 06:06 10/09/21 08:00 Temperature 37.6 C 37.6 C Pulse Rate 84 84 Respiratory Rate 16 16 Blood Pressure 135/73 Pulse Oximetry 98 94 10/09/21 08:19 Temperature Pulse Rate Respiratory Rate Blood Pressure Pulse Oximetry 94 Results Labs CBC & Chem 7: 10/09/21 05:11 10/09/21 05:11 Labs: Short CBC 10/09/21 Range/Units 05:11 WBC 7.3 (4.5-10.0) K/mm3 Hgb 11.1 L (12.0-15.0) g/dL Hct 34.8 L (37.0-47.0) % Plt Count 148 L (150-375) k/mm3 BMP 10/09/21 05:11 Sodium 134 L Potassium 3.4 Chloride 98 Carbon Dioxide 30 BUN 17 Creatinine 1.40 H Glucose 98 Calcium 8.3 L Urine 10/08/21 Range/Units 11:00 Urine Color Yellow (Yellow) Urine Appearance Turbid H (Clear) Urine pH 5.0 (5.0-9.0) Ur Specific Singer 1.013 (1.001-1.035) Urine Protein 2+ H (Negative) mg/dL Urine Glucose (UA) Negative (Negative) mg/dL
--- NOTE | 2021-10-09 12:23 | WPDNEUROLOGY ---
Neurology EEG Report General Information Date of Study: 10/09/21 TEST eeg DIAGNOSIS meningitis CONDITION OF RECORDING awake drowsy and sleep EEG NUMBER 22-24 CLINICAL HISTORY patient reported she has been here in the hospital for the last 2 weeks with meningitis EEG DESCRIPTION basic resting occipital frequency consists of large amount of well-organized low to medium voltage 9 to 11 hertz per 2nd alpha admixed with low-voltage 15 to 18 hertz per 2nd beta. Bilateral symmetrical sleep activity seen during sleep. Hyperventilation not done. Photic stimulation not done. Non paroxysmal. Nonfocal. Nonlateralizing. IMPRESSION Normal recall
--- NOTE | 2021-10-09 13:26 | PCNFU ---
Nutrition Follow-Up Complete: Pt current nutrition is regular diet Last recorded weight is 94.8 kg, stable. Bowel Motility: +BM reported 10/07/21 Labs Reviewed: Hgb 11.1, Hct 34.8, Na 134, Ca 8.3, GFR 38, Cr 1.40 Meds Noted: Tylenol, Norvasc, Ceftriaxone Sodium, Lovenox, Synthroid, Claritin Skin: right arm rash Additional Notes: Unable to visit with pt due to following COVID precautions. Current nutrition is a regular diet with reported intake of 60%, 80%, 25%, 100% x2 for an average reported intake of 76%. Pt appears to be tolerating current diet with adequate intake. Recommend adding a dietary supplement of Ensure Compact BID to provide an additional 220kcal and 9g of protein if intake remains under 50%. Agree with diet orders at this time. Will continue to follow. Will follow up in 7 days if pt has not been discharged.
[2021-10-09] MEDS: WARFARIN (*PBKC) 7.5 MG TABLET PO (17:35)
--- NOTE | 2021-10-09 17:41 | PC.NURSE ---
Patient's rings that were locked in closet returned to her at her request. Her is taking both of them home.
[2021-10-09 17:54] LABS: Vancomycin Trough 21.4 ug/mL (10.0-20.0)
--- NOTE | 2021-10-09 18:31 | PHAR ---
10/09/21 1705 VANCOMYCIN TROUGH = 21.4 GOAL = 15-20. DOSE CHANGED TO 1750 MG Q24HR. WILL RECHECK LEVEL BEFORE 4TH DOSE AFTER THIS CHANGE.
[2021-10-10] VITALS (7 sets, daily range): BP systolic 107–121; BP diastolic 60–72; PULSE 65–80; RESP 15–18; TEMP 36.4–38.3; O2SAT 93–100
[2021-10-10] MEDS: cefTRIAXone 2 GM in SODIUM CHLORIDE 0.9% IV 100 ML 200 ML IVPB ×2 (02:39→14:14)
[2021-10-10] MEDS: LEVOTHYROXINE SODIUM 100 MCG TABLET PO (06:11)
[2021-10-10 06:46] LABS: Hematocrit 33.7 % (37.0-47.0); Hemoglobin 10.6 g/dL (12.0-15.0); Mean Corpuscular HGB Conc 31.5 g/dl (32-36); Mean Corpuscular Volume 98.5 fl (80-100); Mean Platelet Volume 10.9 fl (7.4-10.4); Platelet Count Result 144 k/mm3 (150-375); Red Blood Count 3.42 M/mm3 (4.2-5.4); Red Cell Distribution Width 13.6 % (11.5-14.5); White Blood Count 7.2 K/mm3 (4.5-10.0)
[2021-10-10 06:47] LABS: Anion Gap 5 mmol/L (8-16); Blood Urea Nitrogen 16 mg/dL (7-17); Calcium 8.2 mg/dL (8.4-10.2); Carbon Dioxide 32 mmol/L (22-30); Chloride 99 mmol/L (98-107); Estimated CRCL calculation 42 ml/min; Estimated Glomerular Filt Rate 38; Glucose 97 mg/dL (65-110); INR 1.6; Potassium 3.2 mmol/L (3.4-5.0); Sodium 136 mmol/L (137-145)
[2021-10-10] MEDS: amLODIPine BESYLATE 5 MG TABLET PO (08:34)
[2021-10-10] MEDS: LORATADINE 10 MG TABLET PO (08:34)
[2021-10-10] MEDS: ENOXAPARIN 100 MG/ML SYRINGE 96 MG SUB-Q ×2 (11:11→23:53)
[2021-10-10] MEDS: ACETAMINOPHEN 500 MG TABLET PO ×2 (11:11→23:41)
--- NOTE | 2021-10-10 15:10 | PM.IMPN ---
Progress Note: A&P Assessment and Plan (1) Hypertension: Code(s): I10 - Essential (primary) hypertension Status: Acute (2) Bacteremia: Code(s): R78.81 - Bacteremia Status: Acute (3) Sepsis: Code(s): A41.9 - Sepsis, unspecified organism Status: Acute (4) Obstructive sleep apnea: Code(s): G47.33 - Obstructive sleep apnea (adult) (pediatric) Status: Acute (5) Meningitis: Code(s): G03.9 - Meningitis, unspecified Status: Acute (6) Murmur, cardiac: Code(s): R01.1 - Cardiac murmur, unspecified Status: Acute (7) Metabolic syndrome: Code(s): E88.81 - Metabolic syndrome Status: Acute (8) Malignant neoplasm of colon without distant metastasis: Code(s): C18.9 - Malignant neoplasm of colon, unspecified Status: Acute (9) Hypothyroid: Code(s): E03.9 - Hypothyroidism, unspecified Status: Acute (10) Obesity due to excess calories: Code(s): E66.09 - Other obesity due to excess calories Status: Chronic (11) Unspecified vitamin D deficiency: Code(s): E55.9 - Vitamin D deficiency, unspecified Status: Acute (12) Obstructive sleep apnea (adult) (pediatric): Code(s): G47.33 - Obstructive sleep apnea (adult) (pediatric) Status: Acute (13) Sensorineural hearing loss, unspecified: Code(s): H90.5 - Unspecified sensorineural hearing loss Status: Acute (14) Hyperlipidemia, unspecified: Code(s): E78.5 - Hyperlipidemia, unspecified Status: Acute Additional Plan HPI:This is a 61-year-old female with hypothyroidism and sleep apnea presenting to emergency department today via EMS from home for evaluation of weakness, lethargy, and confusion. She is alert to self only at this time and as such all the following is obtained via a review of her electronic medical records as well as discussions with her and son via phone. Yesterday afternoon the patient's went out for a walk and when he returned the patient complained to him of a left-sided earache. She decided to try placing a heating pad on the area and she went to lie down for a period of time. Later in the evening she developed nausea and reported having 1 episode of emesis associated with a pretty severe headache. The last time her saw her in her usual state of health was around 20:00 and when he awoke at 02:00 to use the restroom he noted that she was asleep on the couch. When he woke this morning she was still on the couch but was extremely confused and her speech was incomprehensible. She was afebrile on arrival to the emergency department with stable blood pressures. Pertinent labs include a leukocytosis with left shift and lactic acidosis with a lactic acid level of 3.4. She did test positive for SARS-CoV-2 by PCR though reports that she was positive 6 weeks ago and her symptoms had essentially resolved. Brain CT showed no acute findings. A lumbar puncture was performed and demonstrated an elevated opening pressure with cloudy, yellow fluid and laboratory results consistent with a bacterial meningitis (2555 total nucleated cells with 93% neutrophils, glucose less than 20, total protein greater than 600) and she is being admitted to the intensive care unit for close monitoring. At the time my evaluation she will arouse to stimuli and is able to tell me her first name though her speech is garbled. She seems a bit disoriented and she answers no other questions nor does she follow commands however she is noted to move upper and lower extremities. 09/27/2021: Feeling better. Confusion has been clearing up. Remains afebrile. Complains of left ear drainage. She does have left sided hearing loss for many years. 09/28/2021 no overnight events. Feeling better. Confusion is getting better. She is quicker to respond today. She is going to work with therapy this afternoon 09/29/2021 no overnight events. She is jose
[2021-10-10] MEDS: WARFARIN (*PBKC) 7.5 MG TABLET PO (17:28)
[2021-10-10] MEDS: SODIUM CHLORIDE 0.9% IV 1,000 ML 80 ML IV CONT (17:29)
[2021-10-10 19:22] LABS: Add Urine Microscopic? YES; Appearance Urine Cloudy (Clear); Bacteria Urine 2+ /hpf; Bilirubin Urine Negative (Negative); Blood Urine 3+ (Negative); Color Urine Red (Yellow); Glucose Urine UA Negative (Negative); Ketones Urine Negative (Negative); Leukocyte Esterase Ur Negative LEU/UL (Negative); Mucus Urine Rare /lpf; Nitrate Urine Negative (Negative); Protein Urine 1+ mg/dL (Negative); RBC Urine >75 /hpf (0-2); Specific Grav Ur 1.012 (1.001-1.035); Squamous Epithelial Cell Urine Few /hpf (Few); Urobilinogen Urine Negative mg/dL (<2.0)
[2021-10-11] MEDS: LEVOTHYROXINE SODIUM 100 MCG TABLET PO (05:05)
[2021-10-11 05:41] VITALS: BP 122/74; PULSE 76; RESP 16; TEMP 36.9; O2SAT 93
[2021-10-11 06:31] LABS: Basophils Percent Auto 0.2 % (0.2-1.2); Eosinophils Absolute Auto 0.4 K/mm3 (0-0.3); Eosinophils Percent Auto 4.9 % (0-4.4); Hematocrit 30.7 % (37.0-47.0); Hemoglobin 9.9 g/dL (12.0-15.0); Immature Granulocyte Absolute 0.06 K/mm3 (0.00-0.031); Immature Granulocyte Percent A 0.7 % (0-0.5); Immature Platelet Fraction Pct 14.1 % (0.9-11.2); Lymphocytes Absolute Auto 0.78 K/mm3 (0.9-3.2); Lymphocytes Percent Auto 9.4 % (18.3-44.2); Mean Corpuscular HGB Conc 32.2 g/dl (32-36); Mean Corpuscular Hemoglobin 31.8 pg (26-34); Mean Corpuscular Volume 98.7 fl (80-100); Mean Platelet Volume 11.1 fl (7.4-10.4); Monocytes Absolute Auto 0.7 K/mm3 (0.1-0.6); Monocytes Percent Auto 8.2 % (2.6-8.5); Neutrophils Absolute Auto 6.4 K/mm3 (1.3-6.7); Neutrophils Percent Auto 76.6 % (45.5-73.1); Red Blood Count 3.11 M/mm3 (4.2-5.4); Red Cell Distribution Width 13.7 % (11.5-14.5); White Blood Count 8.3 K/mm3 (4.5-10.0)
[2021-10-11 06:34] LABS: Anion Gap 4 mmol/L (8-16); Blood Urea Nitrogen 16 mg/dL (7-17); Calcium 8.1 mg/dL (8.4-10.2); Carbon Dioxide 30 mmol/L (22-30); Chloride 101 mmol/L (98-107); Estimated CRCL calculation 45 ml/min; Estimated Glomerular Filt Rate 41; Glucose 95 mg/dL (65-110); Magnesium 2.1 mg/dL (1.6-2.3); Potassium 3.1 mmol/L (3.4-5.0); Sodium 135 mmol/L (137-145)
[2021-10-11 06:57] LABS: Platelet Clumps Present; Platelet Estimate Adequate (Adequate)
[2021-10-11 07:00] LABS: INR 2.2; Prothrombin Time 23.4 Seconds (11.1-14.7)
[2021-10-11] MEDS: SODIUM CHLORIDE 0.9% IV 1,000 ML 80 ML IV CONT (07:28)
[2021-10-11] MEDS: amLODIPine BESYLATE 5 MG TABLET PO (08:53)
[2021-10-11] MEDS: LORATADINE 10 MG TABLET PO (08:53)
--- NOTE | 2021-10-11 11:12 | PM.DS ---
DS: Admitting Diagnosis Discharge Date 10/11/21 Admitting Diagnosis (1) Sepsis: Code(s): A41.9 - Sepsis, unspecified organism <Valerie WoodardHERVE-C - Last Filed: 09/25/21 20:57> Status: Acute <Valerie WoodardHERVE-C - Last Filed: 09/25/21 20:57> Assessment and Plan: <Valerie SyHERVE brush-C - Last Filed: 09/25/21 20:57> (2) Meningitis: Code(s): G03.9 - Meningitis, unspecified <Valerie WoodardHERVE-C - Last Filed: 09/25/21 20:57> Status: Acute <Valerie Woodard PA-C - Last Filed: 09/25/21 20:57> Assessment and Plan: (3) COVID-19: Code(s): She reportedly tested positive for COVID-19 6 weeks ago and her symptoms had resolved. (4) Hypothyroidism: Code(s): E03.9 - Hypothyroidism, unspecified <Valerie WoodardHERVE-C - Last Filed: 09/25/21 20:57> (5) Obstructive sleep apnea: Code(s): G47.33 - Obstructive sleep apnea (adult) (pediatric) <Valerie SyHERVE brush-C - Last Filed: 09/25/21 20:57> Status: DS: Discharge Diagnosis Discharge Diagnosis (1) Meningitis: Code(s): G03.9 - Meningitis, unspecified Status: Acute (2) Bacteremia: Code(s): R78.81 - Bacteremia Status: Acute (3) Sepsis: Code(s): A41.9 - Sepsis, unspecified organism Status: Acute (4) DVT (deep venous thrombosis): Code(s): I82.409 - Acute embolism and thrombosis of unspecified deep veins of unspecified lower extremity Status: Acute (5) Obesity due to excess calories: Code(s): E66.09 - Other obesity due to excess calories Status: Chronic (6) Hypertension: Code(s): I10 - Essential (primary) hypertension Status: Acute (7) Obstructive sleep apnea: Code(s): G47.33 - Obstructive sleep apnea (adult) (pediatric) Status: Acute (8) Metabolic syndrome: Code(s): E88.81 - Metabolic syndrome Status: Acute (9) Hyperlipidemia, unspecified: Code(s): E78.5 - Hyperlipidemia, unspecified Status: Acute (10) Hypothyroid: Code(s): E03.9 - Hypothyroidism, unspecified Status: Acute (11) Obstructive sleep apnea (adult) (pediatric): Code(s): G47.33 - Obstructive sleep apnea (adult) (pediatric) Status: Acute (12) Personal history of COVID-19: Code(s): Z86.16 - Personal history of COVID-19 Status: Acute (13) Warfarin prescribed at discharge: Code(s): Z78.9 - Other specified health status Status: Acute (14) Hematuria: Code(s): R31.9 - Hematuria, unspecified Status: Acute DS: Summary Hospital Course Reason for hospitalization: Weak lethargic confused Hospital Course: 61-year-old female admitted [facility] with altered mental status and lethargy. LP was performed in the ER and patient was found to have 2555 total nucleated cells with 90% neutrophils glucose less than 20 and total protein greater than 600. She was admitted to the ICU for sepsis secondary to bacterial meningitis and placed on IV for ceftriaxone, ampicillin, vancomycin, acyclovir and was also given dexamethasone. Neurology was consulted. Patient responded appropriately to medical therapy and rapidly started to improve. Subsequently, blood cultures grew Streptococcus pneumoniae 2/2 cultures. Antibiotics were deescalated to Rocephin and vancomycin and patient completed a 14 day course of IV antibiotic therapy prior to her discharge. Echocardiogram was without vegetation EF was 65-70% diastolic grade 2 dysfunction present with mild mitral and tricuspid regurgitation and moderate pulmonary hypertension. Patient was started on antihypertensive medication during this hospitalization without prior history of hypertension. She is discharged home on amlodipine 5 mg p.o. q.day with indications to follow up with her primary care physician for ongoing titration in the outpatient setting. Unfortunately, this hospitaliza
[2021-10-11] MEDS: POTASSIUM CHLORIDE 20 MEQ PACKET (FOR LIQUID) 40 MEQ PO (11:49)
== END 2021-10-11 12:30 | disposition home or self-care (01) | DRG 871 ==
LOC: ANHED 09:54 → ANHICU 15:06 → ANH3MEDSUR 09-26 13:40
PROVIDERS: Hospitalist; Physician Assistant; Admitting Provider Family Medicine; Emergency Provider Emergency Medicine; PCP Family Medicine; Visit Provider Internal Medicine
DX: A40.3 Sepsis due to Streptococcus pneumoniae (principal); G00.1 Pneumococcal meningitis; N17.9 Acute kidney failure, unspecified; C18.9 Malignant neoplasm of colon, unspecified; I82.462 Acute embolism and thrombosis of left calf muscular vein; I10 Essential (primary) hypertension; R31.0 Gross hematuria; K57.90 Diverticulosis of intestine, part unspecified, without perforation or abscess without bleeding; G47.33 Obstructive sleep apnea (adult) (pediatric); E03.9 Hypothyroidism, unspecified; E55.9 Vitamin D deficiency, unspecified; E78.5 Hyperlipidemia, unspecified; E88.81 Metabolic syndrome and other insulin resistance; I08.1 Rheumatic disorders of both mitral and tricuspid valves; I27.20 Pulmonary hypertension, unspecified; H90.5 Unspecified sensorineural hearing loss; E66.09 Other obesity due to excess calories; Z68.39 Body mass index [BMI] 39.0-39.9, adult; Z79.899 Other long term (current) drug therapy; Z86.16 Personal history of COVID-19; Z87.891 Personal history of nicotine dependence
CPT/HCPCS: 36415; 36600; 62328; 70450; 71045; 80048; 80053; 80202; 81001; 82565; 82805; 82945; 82948; 83605; 83735; 84157; 84443; 85025; 85027; 85055; 85610; 85730; 86140; 87040; 87070; 87077; 87086; 87186; 87205; 87255; 87529; 89051; 93005; 93306; 93970; 95816; 96365; 96366; 97110; 97116; 97161; 97165; 97530; 97535; 99285; A9270; C9803; J0133; J0290; J0696; J1100; J1650; J3370; J7030; J7060; U0003; U0005

== ENCOUNTER → 2022-01-17 14:20 | Outpatient (CLI) | payer OTHER, SELFPAY ==
--- NOTE | ~2022-01-17 | CT_ITS ---
EXAMINATION: CT lung screening DATE: 01/17/2022 14:40 INDICATION: Z87.891 - Personal history of nicotine dependence TECHNIQUE: Computed tomography (CT) of the chest was performed without intravenous contrast. Addition al 3D reconstructions utilizing coronal maximum intensity projection (MIP) were performed. Automated exposure control and iterative reconstruction technique were employed. The dose-length product was 14 8.26 mGy-cm. COMPARISON: 09/29/2018 FINDINGS: Unchanged 3 mm left lower lobe nodule. New peripheral 1.6 x 0.8 x 0.6 cm nodular opacity in the right upper lobe along the minor fissure. No other pulmonary nodules, pneumonia, pulmonary edema or pleura l effusion. Heart size is normal. No pericardial effusion. Ectatic ascending thoracic aorta measuring up to 4.0 cm. No pathologically enlarged thoracic lymphadenopathy. Moderate thoracic spondylosis wit h chronic mild anterior wedging of a few midthoracic vertebral bodies. IMPRESSION: 1. Lung-RADS category 4B: Very suspicious, >15% chance of malignancy. Recommend further evaluation wi PET/CT or one month follow-up low-dose noncontrast chest CT. Reviewed, dictated and finalized at location A. IMPRESSION: 1. Lung-RADS category 4B: Very suspicious, >15% chance of malignancy. Recommend further evaluation with PET/CT or one month follow-up low-dose noncontrast tabby st CT.
== END ==
PROVIDERS: PCP Family Medicine; Visit Provider Family Medicine
DX: Z12.2 Encounter for screening for malignant neoplasm of respiratory organs (principal); Z87.891 Personal history of nicotine dependence; R91.8 Other nonspecific abnormal finding of lung field
CPT/HCPCS: 71271

== ENCOUNTER 2022-01-25 12:07 | Outpatient (CLI) | payer OTHER, SELFPAY ==
--- NOTE | ~2022-01-25 | PE_ITS ---
EXAMINATION: PET skull to mid thigh DATE: 01/25/2022 14:01 INDICATION: Pulmonary nodule TECHNIQUE: Blood glucose level was 102 mg/dL. 10.854 mCi of 18-fluorodeoxyglucose (18-FDG) was admini stered i.v. Low dose computed tomography (CT) images were acquired from the base of the brain to the proximal thighs for attenuation correction and anatomic localization. Positron emission tomography (P ET) images were acquired in the same distribution beginning 69 minutes after injection. Images includ ing fused PET/CT images were reconstructed in axial, coronal, and sagittal planes. Automated exposure control technique was employed. The dose-length product was 1150.94mGy-cm. COMPARISON: CT dated 01/17/2022 FINDINGS: Head/neck: There is symmetric increased activity in the oral cavity laryngeal muscles and ocular muscles without CT correlate, likely physiologic. Additional relatively symmetric mild uptake associated with the po sterior upper cervical paraspinal musculature without radiologic correlate which is likely physiologi c. No pathologically enlarged cervical lymphadenopathy or suspicious foci of increased FDG uptake in the visualized head or neck. Chest: Mild increased FDG uptake with maximal SUV of 3.0 associated with the 1.6 x 0.9 cm nodule in the righ t upper lobe along the minor fissure. No other suspicious pulmonary nodules, pneumonia, pulmonary vinod ma or pleural effusion. Heart size is normal. No pericardial effusion. Again seen is ectatic ascendin g thoracic aorta measuring up to 4.0 cm. Focal mild increased uptake at the right hilum with maximal SUV of 3.9 raising concern for either reactive or metastatic lymph node is unable to be distinguished from the hilar vasculature in the absence of intravenous contrast. No other pathologically enlarged or FDG avid thoracic lymphadenopathy. Abdomen/pelvis/proximal thighs: Physiologic renal accumulation and excretion of FDG activity in the kidneys, bladder and along portio ns of ureters. Normal degree and heterogenous pattern of increased uptake throughout the liver withou t radiologic correlate or dominant FDG avid lesion. Tiny calcified gallstones along the dependent wal l of the otherwise normal-appearing gallbladder. The pancreas, spleen and bilateral adrenal glands ar e normal. There is mild colonic diverticulosis with a sigmoid predominance. There is no adjacent inf lammatory change to suggest diverticulitis. Normal appendix. Mild uptake scattered throughout the bow els without radiologic correlate, also likely physiologic. Bilateral adnexa and visualized portion of the uterus and bladder are unremarkable. Portions of the deep pelvis are obscured by prominent metal lic streak artifact from a right total hip arthroplasty. No other abnormal foci of increased FDG upta ke or pathologically enlarged lymphadenopathy in the abdomen, pelvis or proximal thighs. Musculoskeletal: Moderate cervical and thoracic spondylosis. Chronic appearing mild anterior wedging of a couple mid t horacic vertebral bodies. No suspicious lytic, blastic or FDG avid bone lesions. IMPRESSION: 1. Mild increased uptake associated with a 1.6 x 1.0 cm right upper lobe nodule as well as a likely r ight hilar lymph node which is concerning for malignancy and regional metastatic lymphadenopathy. Rec ommend percutaneous CT-guided biopsy of the pulmonary nodule. 2. Cholelithiasis. Reviewed, dictated and finalized at location B. IMPRESSION: 1. Mild increased uptake associated with a 1.6 x 1.0 cm right upper lobe nodule as well as a likely right hilar lymph node which is concerning for malignancy and regional metastatic lymphadenopathy. Recommend percutaneous CT-guided biops y of the pulmonary nodule. 2. Cholelithiasis.
[2022-01-25 12:28] LABS: Glucose Point of Care 102 mg/dl (65-105)
== END 2022-01-25 12:08 | disposition home or self-care (01) ==
PROVIDERS: PCP Family Medicine; Visit Provider Family Medicine
DX: R91.8 Other nonspecific abnormal finding of lung field (principal)
CPT/HCPCS: 78815; A9552

== ENCOUNTER 2022-02-16 02:03 | Outpatient (CLI) | payer OTHER, SELFPAY ==
[2022-02-09 14:14] VITALS: BMI 39.9
--- NOTE | 2022-02-09 14:14 | PC.NURSE ---
Pre Radiology instructions Report to the Outpatient Waiting Room, entrance under the green pavilion located off [facility], at time 0900 on date 02/16/22. Procedure Time: 1100. One visitor will be allowed to accompany the patient into the hospital. The visitor will be instructed to remain with patient at all times or leave the building. We will allow the visitor to come back to the postoperative area when patient is ready. You and your visitor will be asked a series of questions to screen for COVID 19 for your protection. A mask is required within the hospital. Patients are to have no food or drink 6 hours prior to procedure time Driving will be restricted after the procedure, you must have a person to drive you home. Labs will be drawn in preop area and once reviewed, you will be taken to radiology area for procedure. When the procedure is completed, you will be taken to outpatient where you will be monitored for several hours. You may have one visitor in this area. Other than holding anti-coagulants, patient may take other medication(s) as scheduled. Prior to your appointment date patients are instructed to hold anti-coagulants after discussing with ordering provider to stop. If unable to discontinue anti-coagulants please notify radiologist. No aspirin or warfarin (Coumadin) for 7 days prior to the procedure. No clopidogrel (Plavix), ticagrelor (Brilinta), prasugrel (Effient) or dabigatran (Pradaxa) for 5 days prior to the procedure. No rivaroxaban (Xarelto), apixaban (Eliquis), dipyridamole (Aggrenox or Persantine) or cilostazol (Pletal) for 2 days prior to the procedure. Medications to discontinue per physician: XARELTO Date to take last dose: 02/13/22 Please leave all valuables, including medications, at home the day of procedure. The hospital will not accept responsibility for valuables. Wear comfortable, loose fitting clothing. Follow any additional instructions given to you from ordering provider. Telephone instructions given to LENORA JOHNSTON and asked if any additional questions and then verbalized understanding. Patient advised to call scheduling provider office or registration scheduling [phone] if any additional questions.
[2022-02-16] VITALS (8 sets, daily range): BP systolic 110–126; BP diastolic 60–81; PULSE 69–80; RESP 20; TEMP 36.6; O2SAT 98–100
--- NOTE | ~2022-02-16 | XR_ITS ---
EXAMINATION: XR chest 1V DATE: 02/16/2022 12:04 INDICATION: Right lung nodule status post percutaneous biopsy. TECHNIQUE: A single frontal view of the chest was obtained. COMPARISON: Chest single view 09/25/2021 FINDINGS: There is a nodule in right midlung zone. No pleural effusion or pneumothorax. The heart siz e is normal. IMPRESSION: 1. Nodule in right midlung zone suspicious for primary bronchogenic carcinoma. Reviewed, dictated and finalized at location A.
--- NOTE | ~2022-02-16 | XR_ITS ---
EXAMINATION: XR chest 1V portable DATE: 02/16/2022 15:34 INDICATION: Right lung nodule status post percutaneous biopsy. TECHNIQUE: A single frontal view of the chest was obtained. COMPARISON: Chest single view at 1:16 PM FINDINGS: There is a nodule in right midlung zone. No pleural effusion or pneumothorax. The heart siz e is normal. IMPRESSION: 1. Nodule in right midlung zone suspicious for primary bronchogenic carcinoma. Reviewed, dictated and finalized at location A.
--- NOTE | ~2022-02-16 | CT_ITS ---
. EXAMINATION: CT biopsy lung w/imaging DATE: 02/16/2022 12:04 INDICATION: Right lung nodule. TECHNIQUE: The procedure including the risks, benefits, and alternatives and possibility of chest tub e placement were discussed with the patient. Risks discussed included infection, hemorrhage, approxim ately 1/3 risk of pneumothorax, approximately 1/10 risk of pneumothorax severe enough to warrant ches t tube placement, and rarely . The patient understood the risks and agreed to proceed. The patie nt was placed supine. The skin overlying the right chest was prepped and draped in sterile fashion. Anesthetic was administered with 1% lidocaine subcutaneously. A 19 gauge outer needle was advanced under CT guidance to the lesion of interest. A 20 gauge core biopsy needle was then used to obtain mu ltiple core biopsy specimens. The needle was removed and the entry site was cleaned and dressed. The mA was adjusted according to patient size. Iterative reconstruction technique was employed. The dose- length product was 243.13 mGy-cm. There were no immediate complications. FINDINGS: CT images demonstrate the outer needle tip in a 13 mm nodule in right upper lobe abutting t he minor fissure. IMPRESSION: 1. CT-guided core needle biopsy of a nodule in right lung upper lobe. Reviewed, dictated and finalized at location A.
--- NOTE | ~2022-02-16 | XR_ITS ---
EXAMINATION: XR chest 1V portable DATE: 02/16/2022 13:25 INDICATION: Right lung nodule status post percutaneous biopsy. TECHNIQUE: A single frontal view of the chest was obtained. COMPARISON: Chest single view at 12:03 PM FINDINGS: There is a nodule in right midlung zone. There is mild atelectasis at right lung base. No p leural effusion or pneumothorax. The heart size is normal. IMPRESSION: 1. Nodule in right midlung zone suspicious for primary bronchogenic carcinoma. Reviewed, dictated and finalized at location A.
[2022-02-16 09:44] LABS: Mean Platelet Volume 10.4 fl (7.4-10.4); Platelet Count Result 185 k/mm3 (150-375)
== END 2022-02-16 15:37 | disposition home or self-care (01) ==
PROVIDERS: PCP Family Medicine; Visit Provider Radiology Diagnostic Radiology
PROC: BB24ZZZ Computerized Tomography (CT Scan) of Bilateral Lungs (ICD-10-PCS; CPT 32408; principal; 2022-02-16 11:00)
DX: R91.8 Other nonspecific abnormal finding of lung field (principal)
CPT/HCPCS: 32408; 36415; 71045; 85049; 85610; 88305; 88312

== ENCOUNTER → 2022-03-12 12:12 | Outpatient (CLI) | payer OTHER, SELFPAY ==
--- NOTE | ~2022-03-12 | MM_ITS ---
EXAMINATION: MM screening [facility] BI w terry HISTORY: Screening mammogram TECHNIQUE: Craniocaudal and mediolateral oblique 3-D tomosynthesis images were obtained and synthetic 2-D images were generated. CAD analysis was submitted and interpreted. COMPARISON: 02/13/2021, 01/26/2019, 08/12/2017 BREAST PARENCHYMAL COMPOSITION: There are scattered areas of fibroglandular density. FINDINGS: There is no suspicious mass, calcification, or architectural distortion to suggest malignan cy in either breast. There has been no suspicious interval change. IMPRESSION: 1. No mammographic evidence of malignancy. 2. Recommend routine screening mammography in one year. BI-RADS Category 1: Negative Reviewed, dictated and finalized at location A.
== END ==
PROVIDERS: PCP Family Medicine; Visit Provider Family Medicine
DX: Z12.31 Encounter for screening mammogram for malignant neoplasm of breast (principal)
CPT/HCPCS: 77063; 77067

== ENCOUNTER 2022-03-19 08:56 | Outpatient (CLI) | payer OTHER, SELFPAY ==
--- NOTE | 2022-03-21 14:46 | WPDPFTINT ---
PFT Procedure Performed PFT Procedure Performed Spirometry with Pre/Post Bronchodilator Plethysmography (Lung Vol) Diffusing Cap (DLCO) Flow Vol Loop PFT Interpretation Lung volumes were measured with the body plethysmography method. Lung volumes are unremarkable. Spirometry showed normal expiratory flow rates and a normal FEV1 to FVC ratio of 73%. Following administration of a bronchodilator there was no significant increase in the expiratory flow rates. Lung diffusion capacity is within the normal range at 93% predicted. The flow volume loop is unremarkable. Impression:. Spirometry, lung volumes, and lung diffusion capacity all within the normal range.
== END 2022-03-19 08:57 | disposition home or self-care (01) ==
PROVIDERS: PCP Family Medicine; Visit Provider Internal Medicine Pulmonary Disease
DX: R06.00 Dyspnea, unspecified (principal)
CPT/HCPCS: 94060; 94726; 94729

== ENCOUNTER → 2022-04-19 10:59 | Outpatient (CLI) | payer OTHER, SELFPAY ==
--- NOTE | ~2022-04-19 | CT_ITS ---
EXAMINATION: CT chest high resolution wo az DATE: 04/19/2022 11:15 INDICATION: Pulmonary fibrosis, unspecified TECHNIQUE: Computed tomography (CT) of the chest was performed without intravenous contrast. The dose -length product (DLP) was 446.10 mGy-cm. Automated exposure control and iterative reconstruction tech [employer] were employed. COMPARISON: 01/17/2022, 09/29/2018 FINDINGS: There is a 9 mm subpleural nodule of the right upper lobe which has undergone prior biopsy and is slightly decreased in size since the comparison examination. No pleural effusion or pneumothor ax. A 2 mm nodule is noted in the right lower lobe on image 60. There is mild atelectasis of the ling christophe. No pathologically enlarged thoracic lymph nodes are identified. The heart size is normal. There is moderate thoracic spondylosis. IMPRESSION: 1. 9 mm subpleural nodule in the right upper lobe slightly decreased in size. 2. 2 mm nodule of the right lower lobe, probable old granulomatous disease. Follow-up low-dose CT of the chest in six months is recommended. Reviewed, dictated and finalized at location B. IMPRESSION: 1. 9 mm subpleural nodule in the right upper lobe slightly decreased in size. 2. 2 mm nodule of the right lower lobe, probable old granulomatous disease. Fol low-up low-dose CT of the chest in six months is recommended.
== END ==
PROVIDERS: PCP Family Medicine; Visit Provider Internal Medicine Pulmonary Disease
DX: R91.1 Solitary pulmonary nodule (principal); J84.10 Pulmonary fibrosis, unspecified
CPT/HCPCS: 71250

== ENCOUNTER 2022-05-15 11:22 | Outpatient (CLI) | payer OTHER, SELFPAY ==
[2022-05-15 20:11] LABS: Thyroid Stimulating Hormone < 0.015 uIU/mL (0.465-4.680)
== END 2022-05-15 11:23 | disposition home or self-care (01) ==
LOC: ANHGOSHLAB 11:25
PROVIDERS: PCP Family Medicine; Visit Provider Family Medicine
DX: E03.9 Hypothyroidism, unspecified (principal)
CPT/HCPCS: 36415; 84443

== ENCOUNTER → 2022-10-29 12:45 | Outpatient (CLI) | payer OTHER, SELFPAY ==
--- NOTE | ~2022-10-29 | CT_ITS ---
EXAMINATION: CT diagnostic chest wo con DATE: 10/29/2022 13:00 INDICATION: Lung nodule TECHNIQUE: Computed tomography (CT) of the chest was performed without intravenous contrast. The dose -length product (DLP) was 186.91 mGy-cm. Automated exposure control and iterative reconstruction tech [email or web address] were employed. COMPARISON: 04/19/2022 FINDINGS: Again seen is a 9 mm subpleural nodule of the right upper lobe which has undergone previous biopsy and is unchanged in size. Also seen is a stable 2 mm nodule in the right lower lobe. No new p ulmonary nodules are identified. There are stable nodules of the left lower lobe measuring up to 2 mm . No pathologically enlarged thoracic lymph nodes are identified. The heart size is normal. The lungs are free of acute opacities. No pleural effusion or pneumothorax. There is moderate thoracic spondyl osis. IMPRESSION: 1. Stable lung nodules. Annual lung cancer screening CT is recommended. Reviewed, dictated and finalized at location F.
== END ==
PROVIDERS: PCP Family Medicine; Visit Provider Internal Medicine Pulmonary Disease
DX: R91.8 Other nonspecific abnormal finding of lung field (principal)
CPT/HCPCS: 71250

== ENCOUNTER 2023-02-08 13:40 | Outpatient (CLI) | payer OTHER, SELFPAY ==
[2023-02-08 19:18] LABS: Thyroid Stimulating Hormone < 0.015 uIU/mL (0.465-4.680)
== END 2023-02-08 13:41 | disposition home or self-care (01) ==
LOC: ANHGOSHLAB 13:41
PROVIDERS: PCP Family Medicine; Visit Provider Family Medicine
DX: E03.9 Hypothyroidism, unspecified (principal)
CPT/HCPCS: 36415; 84436; 84443

== ENCOUNTER 2023-03-20 07:59 | Outpatient (CLI) | payer OTHER, SELFPAY ==
--- NOTE | 2023-03-20 17:05 | P.PCNPFT_ITS ---
PFT Procedure Performed PFT Procedure Performed Spirometry with Pre/Post Bronchodilator Plethysmography (Lung Vol) Diffusing Cap (DLCO) Flow Vol Loop PFT Interpretation This is a pulmonary function test with pre and post-bronchodilator spirometry, plethysmography and diffusing capacity. The test was performed and results interpreted in accordance with the 2019 and 2005 ATS/ERS Task Force guidelines respectively using the Global Lung Function Initiative-2012 reference equations. Patient demonstrated good effort and cooperation. Reproducibility criteria were met. The quality of the pre bronchodilator spirometry maneuver was Grade A and post bronchodilator spirometry maneuver was Grade A. Findings: Spirometry: The contour the inspiratory and expiratory flow tracing are normal. The pre bronchodilator FVC is 2.42 L, 89% predicted. The pre bronchodilator FEV1 is 1.65 L, 77% predicted. The pre bronchodilator FEV1: FVC ratio 68%. The post bronchodilator FVC is 2.47 L, representing a 2% increase. The post bronchodilator FEV1 is 1.85 L, representing a 12% increase. The post bronchodilator FEV1: FVC ratio 75%. Plethysmography: The total lung capacity is 4.37 L, 95% predicted. The functional residual capacity is 2.24 L, 86% predicted. The residual volume is 1.95 L, 102% predicted. Diffusing capacity: The diffusing capacity unadjusted for hemoglobin and carboxyhemoglobin is 17.9, 90% predicted. The diffusing capacity adjusted for alveolar volume is 5.64, 125% predicted. In comparison to previous pulmonary function testing on 03/19/2022 the post bronchodilator FVC is unchanged from 2.82 L to 2.47 L. The post bronchodilator FEV1 is unchanged from 2.07 L to 1.85 L. The total lung capacity is unchanged from 4.43 L to 4.37 L. The functional residual capacity is unchanged from 2.25 L to 2.24 L. The residual volume is increased from 1.64 L to 1.95 L. The diffusing capacity unadjusted for hemoglobin and carboxyhemoglobin is unchanged from 18.7 to 17.9. The diffusing capacity adjusted for alveolar volume is decreased from 6.59 to 5.64. Impression: The spirometry is normal without evidence of an obstructive abnormality. There is no significant improvement after inhaling a single dose of albuterol. The lung volumes are normal. The diffusing capacity is normal. I in comparison to previous pulmonary function testing on 03/19/2022 there has been a greater than anticipated time dependent increase in the residual volume and a greater than anticipated time dependent decrease in the diffusing capacity adjusted for alveolar volume with no significant change in the FVC, FEV1, total lung capacity, functional residual capacity and diffusing capacity unadjusted f or hemoglobin and carboxyhemoglobin. Clinical correlation is recommended.
== END 2023-03-20 08:00 | disposition home or self-care (01) ==
PROVIDERS: PCP Family Medicine; Visit Provider Internal Medicine Pulmonary Disease
DX: R91.1 Solitary pulmonary nodule (principal)
CPT/HCPCS: 94060; 94726; 94729

== ENCOUNTER 2023-04-01 12:33 | Outpatient (CLI) | payer OTHER, SELFPAY ==
[2023-04-01 16:58] LABS: Thyroid Stimulating Hormone < 0.015 uIU/mL (0.465-4.680)
== END 2023-04-01 12:34 | disposition home or self-care (01) ==
LOC: ANHGOSHLAB 12:35
PROVIDERS: PCP Family Medicine; Visit Provider Family Medicine
DX: E03.9 Hypothyroidism, unspecified (principal)
CPT/HCPCS: 36415; 84443

== ENCOUNTER → 2023-05-01 12:27 | Outpatient (CLI) | payer OTHER, SELFPAY ==
--- NOTE | ~2023-05-01 | MM_ITS ---
EXAMINATION: MM screening [facility] BI w terry HISTORY: Screening mammogram TECHNIQUE: Craniocaudal and mediolateral oblique 3-D tomosynthesis images were obtained and synthetic 2-D images were generated. CAD analysis was submitted and interpreted. COMPARISON: 03/12/2022, 02/13/2021, 01/22/2019 bilateral screening mammogram examinations BREAST PARENCHYMAL COMPOSITION: There are scattered areas of fibroglandular density. FINDINGS: There is no evidence of suspicious mass, calcification, or architectural distortion to sugg est malignancy in either breast. There has been no suspicious interval change. IMPRESSION: 1. No mammographic evidence of malignancy. 2. Recommend routine screening mammography in one year. BI-RADS Category 1: Negative Reviewed, dictated and finalized at location A.
== END ==
PROVIDERS: PCP Family Medicine; Visit Provider Family Medicine
DX: Z12.31 Encounter for screening mammogram for malignant neoplasm of breast (principal)
CPT/HCPCS: 77063; 77067

== ENCOUNTER 2023-05-28 13:32 | Outpatient (CLI) | payer OTHER, SELFPAY ==
[2023-05-28 20:07] LABS: Thyroid Stimulating Hormone < 0.015 uIU/mL (0.465-4.680)
[2023-06-02 05:05] LABS: Thyroid Peroxidase Antibodies 5 IU/mL (<9)
== END 2023-05-28 13:33 | disposition home or self-care (01) ==
LOC: ANHGOSHLAB 13:35
PROVIDERS: PCP Family Medicine; Visit Provider Family Medicine
DX: E03.9 Hypothyroidism, unspecified (principal)
CPT/HCPCS: 36415; 84436; 84443; 86376

== ENCOUNTER → 2023-07-26 10:59 | Outpatient (CLI) | payer MEDICARE, SELFPAY ==
--- NOTE | ~2023-07-26 | DEXA_ITS ---
Bone Density Report Name: MARCI JOHNSTON Age: 63 Sex: Female Ethnicity: White Date of : 1960 Indication: postmenopausal; screening for osteoporosis; height loss; Referring Provider: JORI PETERS Study: Bone densitometry was performed. Exam Date: July 26, 2023 Accession number: [id number] Bone Density: Region BMD T-score Z-score Classification AP Spine (L1-L4) 0.900 -1.3 0.4 Osteopenia Femoral Neck (Left) 0.583 -2.4 -0.9 Osteopenia Total Hip (Left) 0.797 -1.2 0.0 Osteopenia World Health Organization criteria for BMD impression classify patients as: Normal (T-score at or above -1.0), Osteopenia (T-score between -1.0 and -2.5), or Osteoporosis (T-score at or below -2.5). 10-year Fracture Risk(1): Major Osteoporotic Fracture 10% Hip Fracture 1.7% Reported Risk Factors: [place] (), Neck BMD=0.583, BMI=44.4 (1) FRAX(R) Version 3.08. Fracture probability calculated for an untreated patient. Fracture probability may be lower if the patient has received treatment. Clinical Information Provided by Patient: Has used the following medications: Vitamin D, Calcium Patient maximum height was 61.5 Menopause Age: 50 No regular weight bearing exercise Does not regularly consume dairy products Drinks caffeinated beverages Onset of menses at age 13 Number of children 2 Impression: The patient has low bone mass, based on the Left Femoral Neck T-score. The patient has an estimated ten-year risk of hip fracture of 1.7% and an estimated ten-year risk of major fracture of 10%, based on the WHO FRAX algorithm. Discussion: BONE DENSITY IS LOW AT ONE OR MORE SKELETAL SITES. This patient's lowest T-score is low at one or more skeletal sites. It meets the World Health Organization's (WHO) criteria for ?low bone mass? (T-score between -1.0 and -2.5). The patient's 10-year risk of fracture as calculated by FRAX is less than the threshold where pharmacological therapy is recommended by the National Osteoporosis Foundation (NOF). However, all treatment decisions require clinical judgment and consideration of individual patient factors, including patient preferences, comorbidities, previous drug use, risk factors not captured in the FRAX model (e.g., frailty, falls, vitamin D deficiency, increased bone turnover, interval significant decline in bone density) and possible under or overestimation of fracture risk by FRAX. The patient should follow a healthful lifestyle (good nutrition with adequate calcium and vitamin D, and appropriate weight-bearing exercise). Follow-Up: Consider repeating this study in 2 to 3 years to reassess this patient's status, or sooner if there is some new clinical indication. Reported by: ELGIN on 07/26/2023 11:21:00 AM. Reviewed, dictated and finalized at [facility]
== END ==
PROVIDERS: PCP Family Medicine; Visit Provider Family Medicine
DX: Z78.0 Asymptomatic menopausal state (principal); M85.88 Other specified disorders of bone density and structure, other site; M85.852 Other specified disorders of bone density and structure, left thigh
CPT/HCPCS: 77080

== ENCOUNTER 2023-08-14 10:26 | Outpatient (CLI) | payer MEDICARE, SELFPAY ==
[2023-08-14 17:53] LABS: Basophils Absolute Auto 0.1 K/mm3 (0.0-0.1); Basophils Percent Auto 0.9 % (0.2-1.2); Eosinophils Absolute Auto 0.2 K/mm3 (0-0.3); Eosinophils Percent Auto 2.7 % (0-4.4); Hematocrit 45.9 % (37.0-47.0); Hemoglobin 13.8 g/dL (12.0-15.0); Immature Granulocyte Absolute 0.01 K/mm3 (0.00-0.031); Immature Granulocyte Percent A 0.2 % (0-0.5); Lymphocytes Absolute Auto 1.57 K/mm3 (0.9-3.2); Lymphocytes Percent Auto 24.7 % (18.3-44.2); Mean Corpuscular HGB Conc 30.1 g/dl (32-36); Mean Corpuscular Hemoglobin 29.9 pg (26-34); Mean Corpuscular Volume 99.6 fl (80-100); Monocytes Absolute Auto 0.6 K/mm3 (0.1-0.6); Monocytes Percent Auto 9.6 % (2.6-8.5); Neutrophils Absolute Auto 3.9 K/mm3 (1.3-6.7); Neutrophils Percent Auto 61.9 % (45.5-73.1); Red Blood Count 4.61 M/mm3 (4.2-5.4); Red Cell Distribution Width 14.3 % (11.5-14.5); White Blood Count 6.4 K/mm3 (4.5-10.0)
[2023-08-14 18:29] LABS: Hypochromasia 1+ (NORMAL); Schistocytes None Seen (NORMAL)
[2023-08-14 19:20] LABS: Alanine Aminotransferase 27 U/L (6-35); Albumin Level 4.4 g/dL (3.5-5.1); Alkaline Phosphatase 94 U/L (38-126); Anion Gap 8 mmol/L (8-16); Aspartate Amino Transferase 38 U/L (14-36); Blood Urea Nitrogen 15 mg/dL (7-17); Calcium 9.4 mg/dL (8.4-10.2); Carbon Dioxide 30 mmol/L (22-30); Chloride 101 mmol/L (98-107); Estimated Glomerular Filt Rate > 60; Glucose 84 mg/dL (65-110); Potassium 3.9 mmol/L (3.4-5.0); Sodium 139 mmol/L (137-145)
[2023-08-14 19:34] LABS: Hepatitis C Virus Antibody Negative (Negative)
[2023-08-14 19:47] LABS: Thyroid Stimulating Hormone < 0.015 uIU/mL (0.465-4.680)
== END 2023-08-14 10:27 | disposition home or self-care (01) ==
PROVIDERS: PCP Family Medicine; Visit Provider Nurse Practitioner Family
DX: E03.9 Hypothyroidism, unspecified (principal); E55.9 Vitamin D deficiency, unspecified; D64.9 Anemia, unspecified; E66.09 Other obesity due to excess calories; E78.5 Hyperlipidemia, unspecified; I10 Essential (primary) hypertension; D86.9 Sarcoidosis, unspecified; Z11.59 Encounter for screening for other viral diseases; E88.810 Metabolic syndrome
CPT/HCPCS: 36415; 80053; 82306; 84443; 85025; 86803

== ENCOUNTER 2023-10-30 10:20 | Outpatient (CLI) | payer MEDICARE, SELFPAY ==
--- NOTE | ~2023-10-30 | CT_ITS ---
EXAMINATION: CT diagnostic chest wo con DATE: 10/30/2023 10:40 INDICATION: Lung nodule, pulmonary fibrosis, prior smoker TECHNIQUE: Computed tomography (CT) of the chest was performed without intravenous contrast. The dose -length product (DLP) was 368.49 mGy-cm. Automated exposure control and iterative reconstruction tech [employer] were employed. COMPARISON: 10/29/2022 FINDINGS: There is a stable 9 mm subpleural nodule of the right upper lobe. There is a stable 2 mm no dule of the right lower lobe. Stable pulmonary nodules of the left lower lobe measure up to 2 mm. No new pulmonary nodules are identified. The lungs are free of acute opacities. No pleural effusion or p neumothorax. No pathologically enlarged thoracic lymph nodes are identified. The heart size is normal . There is moderate thoracic spondylosis. IMPRESSION: 1. Stable lung nodules. Reviewed, dictated and finalized at location F. IMPRESSION: 1. Stable lung nodules.
== END 2023-10-30 10:21 | disposition home or self-care (01) ==
LOC: ANHIMG 10:22
PROVIDERS: PCP Family Medicine; Visit Provider Internal Medicine Pulmonary Disease
DX: J84.10 Pulmonary fibrosis, unspecified (principal); R91.8 Other nonspecific abnormal finding of lung field
CPT/HCPCS: 71250

== ENCOUNTER 2024-02-12 11:08 | Outpatient (CLI) | payer MEDICARE, SELFPAY ==
[2024-02-12 13:25] LABS: Alanine Aminotransferase 22 U/L (6-35); Albumin Level 4.6 g/dL (3.5-5.1); Alkaline Phosphatase 92 U/L (38-126); Anion Gap 9 mmol/L (4-12); Aspartate Amino Transferase 54 U/L (14-36); Blood Urea Nitrogen 15 mg/dL (7-17); Calcium 9.5 mg/dL (8.4-10.2); Carbon Dioxide 30 mmol/L (22-30); Chloride 103 mmol/L (98-107); Cholesterol 141 mg/dL (0-200); Estimated Glomerular Filt Rate > 60; Glucose 89 mg/dL (65-110); HDL Direct 62 mg/dL; Potassium 3.8 mmol/L (3.4-5.0); Sodium 142 mmol/L (137-145); Triglycerides 66 mg/dL (<150)
[2024-02-12 13:36] LABS: LDL Cholesterol Direct 63 mg/dL
[2024-02-12 13:55] LABS: Thyroid Stimulating Hormone < 0.015 uIU/mL (0.465-4.680)
[2024-02-12 21:13] LABS: Hemoglobin A1C 5.7 % (<5.7)
== END 2024-02-12 11:09 | disposition home or self-care (01) ==
LOC: ANHGOSHLAB 11:09
PROVIDERS: PCP Family Medicine; Visit Provider Family Medicine
DX: E03.9 Hypothyroidism, unspecified (principal); E78.5 Hyperlipidemia, unspecified; Z79.899 Other long term (current) drug therapy; E88.810 Metabolic syndrome
CPT/HCPCS: 36415; 80053; 80061; 83036; 84443

== ENCOUNTER 2024-03-20 12:30 | Outpatient (CLI) | payer MEDICARE, SELFPAY ==
--- NOTE | 2024-04-08 07:17 | WPDPFTINT ---
PFT Procedure Performed PFT Procedure Performed Spirometry with Pre/Post Bronchodilator Plethysmography (Lung Vol) Diffusing Cap (DLCO) Flow Vol Loop PFT Interpretation This is a pulmonary function test with pre and post-bronchodilator spirometry, plethysmography and diffusing capacity. The test was performed and results interpreted in accordance with the 2019 and 2005 ATS/ERS Task Force guidelines respectively using the Global Lung Function Initiative-2012 reference equations. Patient demonstrated good effort and cooperation. Reproducibility criteria were met. The quality of the pre bronchodilator spirometry maneuver was Grade A and post bronchodilator spirometry maneuver was Grade A. Findings: Spirometry: The contour the inspiratory and expiratory flow tracing are normal. The pre bronchodilator FVC is 2.37 L, 109% predicted. The pre bronchodilator FEV1 is 1.73 L, 99% predicted. The pre bronchodilator FEV1: FVC ratio 73%. The post bronchodilator FVC is 2.47 L, representing a 4% increase. The post bronchodilator FEV1 is 1.85 L, representing a 7% increase. The post bronchodilator FEV1: FVC ratio 75%. Plethysmography: The total lung capacity is 4.52 L, 118% predicted. The functional residual capacity is 2.41 L, 107% predicted. The residual volume is 2.12 L, 123% predicted. Diffusing capacity: The diffusing capacity unadjusted for hemoglobin and carboxyhemoglobin is 16.8, 87% predicted. The diffusing capacity adjusted for alveolar volume is 5.23, 114% predicted. In comparison to previous pulmonary function testing on 03/19/2022 the post bronchodilator FVC is unchanged from 2.82 L to 2.47 L. The post bronchodilator FEV1 is unchanged from 2.07 L to 1.85 L. The total lung capacity is unchanged from 4.43 L to 4.52 L. The functional residual capacity is unchanged from 2.25 L to 2.41 L. The residual volume is increased from 1.64 L to 2.12 L. The diffusing capacity unadjusted for hemoglobin and carboxyhemoglobin is unchanged from 18.7 to 16.8. The diffusing capacity adjusted for alveolar volume is decreased from 6.59 to 5.23. Impression: The spirometry is normal without evidence of an obstructive abnormality. There is no significant improvement after inhaling a single dose of albuterol. The lung volumes are normal. The diffusing capacity is normal. In comparison to previous pulmonary function testing on 03/19/2022 there has been a greater than anticipated time dependent increase in the residual volume. There has been a greater than anticipated time dependent decrease in the diffusing capacity adjusted for alveolar volume with no significant change in the FVC, FEV1, total lung capacity, functional residual capacity or diffusing capacity unadjusted for hemoglobin and carboxyhemoglobin. Clinical correlation is recommended.
== END 2024-03-20 12:31 | disposition home or self-care (01) ==
LOC: ANHPFT 12:33
PROVIDERS: PCP Family Medicine; Visit Provider Internal Medicine Pulmonary Disease
DX: D86.9 Sarcoidosis, unspecified (principal); J84.10 Pulmonary fibrosis, unspecified
CPT/HCPCS: 94060; 94726; 94729

== ENCOUNTER 2024-05-06 09:52 | Outpatient (CLI) | payer MEDICARE, SELFPAY ==
--- NOTE | ~2024-05-06 | MM_ITS ---
EXAMINATION: MM screening bill BI w terry HISTORY: Screening TECHNIQUE: Craniocaudal and mediolateral oblique 3-D tomosynthesis images were obtained and synthetic 2-D images were generated. CAD analysis was submitted and interpreted. COMPARISON: Comparison to multiple prior studies sequentially, with oldest reviewed study dated 10/2015. BREAST PARENCHYMAL COMPOSITION: Not dense: There are scattered areas of fibroglandular density. FINDINGS: There is no evidence of suspicious mass, calcification, or architectural distortion to sugg est malignancy in either breast. There has been no suspicious interval change. IMPRESSION: 1. No mammographic evidence of malignancy. 2. Recommend routine screening mammography in one year. BI-RADS Category 1: Negative Reviewed, dictated and finalized at location B.
== END 2024-05-06 09:53 | disposition home or self-care (01) ==
LOC: MICIMG 09:54
PROVIDERS: PCP Family Medicine; Visit Provider Family Medicine
DX: Z12.31 Encounter for screening mammogram for malignant neoplasm of breast (principal)
CPT/HCPCS: 77063; 77067

== ENCOUNTER 2024-05-11 11:09 | Outpatient (CLI) | payer MEDICARE, SELFPAY ==
[2024-05-11 13:33] LABS: Alanine Aminotransferase 22 U/L (6-35); Albumin Level 4.5 g/dL (3.5-5.1); Alkaline Phosphatase 83 U/L (38-126); Anion Gap 7 mmol/L (4-12); Aspartate Amino Transferase 65 U/L (14-36); Bilirubin,Total 1.4 mg/dL (0.2-1.3); Blood Urea Nitrogen 21 mg/dL (7-17); Calcium 9.5 mg/dL (8.4-10.2); Carbon Dioxide 30 mmol/L (22-30); Chloride 103 mmol/L (98-107); Estimated Glomerular Filt Rate > 60; Glucose 95 mg/dL (65-110); Potassium 3.6 mmol/L (3.4-5.0); Sodium 140 mmol/L (137-145)
[2024-05-11 13:53] LABS: Thyroid Stimulating Hormone 0.032 uIU/mL (0.465-4.680)
== END 2024-05-11 11:10 | disposition home or self-care (01) ==
LOC: ANHGOSHLAB 11:11
PROVIDERS: PCP Family Medicine; Visit Provider Family Medicine
DX: E03.9 Hypothyroidism, unspecified (principal); R74.8 Abnormal levels of other serum enzymes
CPT/HCPCS: 36415; 80053; 84443

== ENCOUNTER 2024-05-15 03:39 | Day surgery (SDC) | payer MEDICARE, SELFPAY ==
[2024-04-29 15:27] VITALS: BMI 42.8
[2024-05-15 06:58] VITALS: BP 135/83; PULSE 71; RESP 19; TEMP 36.2; O2SAT 98
[2024-05-15] MEDS: LACTATED RINGERS 1,000 ML 150 ML IV CONT (07:08)
--- NOTE | 2024-05-15 07:56 | WPDANESEPPF ---
Anes - Initial Pre Proc Eval Procedure: Operation Date: 05/15/24 08:00 Proposed Procedures p Screening Colonoscopy - Beto Buitrago MD Date/Time: 05/15/24 07:56 Surgeon: Beto Buitrago MD Pre Op Diagnosis: hx of colon polyps Patient Data Age: 63 Gender: F Height: 1.56 m Weight: 102.4 kg Last Vital Signs Temp 97.1 F L 05/15/24 06:58 Pulse 71 05/15/24 06:58 Resp 19 05/15/24 06:58 BP 135/83 05/15/24 06:58 Pulse Ox 98 05/15/24 06:58 O2 Del Method Room Air 05/15/24 06:58 Allergies Allergy/AdvReac Type Severity Reaction Status Date / Time bupropion Allergy Intermediate Itching Verified 05/15/24 06:55 Home Medications Medication Instructions Recorded Confirmed Type cholecalciferol (vitamin D3) 25 1,000 unit PO DAILY 10/15/19 05/15/24 History mcg (1,000 unit) capsule diphenhydramine 25 2 tablet PO QHS PRN Insomnia 05/22/21 05/15/24 History mg-acetaminophen 500 mg tablet (Tylenol PM Extra Strength) aspirin 81 mg tablet,delayed 81 mg PO DAILY 06/01/22 05/15/24 History release (Adult Low Dose Aspirin) biotin 1 mg capsule 1 mg PO DAILY 06/01/22 05/15/24 History multivitamin 1 tablet PO DAILY 06/01/22 05/15/24 History vit B complex 100 combo no.2 100 1 tablet PO DAILY 06/01/22 05/15/24 History mg tablet,extended release (B-100 Complex ER) flaxseed oil-omega 3,6,9-fatty 1 cap PO DAILY 11/29/22 05/15/24 History acids 1,300 mg-670 mg-155 mg capsule rosuvastatin 20 mg tablet 20 mg PO DAILY 05/21/23 05/15/24 History amlodipine 5 mg tablet (Norvasc) 5 mg PO QAM #90 tabs 02/13/24 05/15/24 Rx levothyroxine 100 mcg tablet 100 mcg PO DAILY #90 tabs 02/13/24 05/15/24 Rx (Synthroid) Jewell Kael 1 tab-cap PO DAILY 04/29/24 05/15/24 History cyanocobalamin (vitamin B-12) 500 500 mcg PO DAILY 04/29/24 05/15/24 History mcg lozenges (Vitamin B-12) magnesium oxide 400 mg PO DAILY 04/29/24 05/15/24 History amoxicillin 875 mg-potassium 1 tablet PO Q12H #14 tabs 05/11/24 05/15/24 Rx clavulanate 125 mg tablet Patient hx anesthesia problems: none Family hx anesthesia problems: none Results Review: All pre-operative results and documents have been reviewed as part of the pre-operative evaluation. [facility] Past Medical History Medical History Diverticulosis Female genital prolapse Hearing loss Hyperlipidemia, unspecified Hypothyroidism Malignant neoplasm of colon without distant metastasis Metabolic syndrome Morbid obesity Murmur, cardiac Nicotine dependence, unspecified, uncomplicated Obstructive sleep apnea Sensorineural hearing loss, unspecified Unspecified vitamin D deficiency Surgical History Surgical History History of left knee replacement History of right hip replacement Family History Family History Father Hypertension Family history of aortic aneurysm Mother Hypertension Cerebrovascular accident Sibling Family history of lung cancer Other Family history of pancreatic cancer Social History Social History Social History: Surrogate decision maker: Mendoza Jalloh, spouse. Code status: Full code. Smoking packs per day: 2 Smoking cigarettes per day: 40.0 Years smoked: 40 Smoking pack-years: 80.00 Smoking status: Former smoker Tobacco type: cigarettes Smoking end date: 08/05/13 Alcohol intake: current Alcohol use details: Occasional Substance use: current Substance use type: marijuana Other substance usage details: GUMMIES AT HS OCCASIONALLY Lack of Transportation: No Lack of Food: Never True Current Housing: I Have Housing Concerned About Future Housing: No Difficulty Paying Gas/Electric Bills: No Difficulty Paying for Meds: No Currently Unemployed: No E
--- NOTE | 2024-05-15 08:04 | PM.IMHP ---
H&P: HPI History of Present Illness Date/Time: 05/15/24 08:04 Chief Complaint: History of colonic polyps. Family history of colorectal cancer. Her father and 2 uncles of colorectal cancer Narrative: Her last colonoscopy was 5 years ago. She is here for her surveillance colonoscopy. Review of Systems Review of Systems: All systems reviewed & are unremarkable except as noted in HPI and below PMFSH Past Medical History Medical History Diverticulosis Female genital prolapse Hearing loss Hyperlipidemia, unspecified Hypothyroidism Malignant neoplasm of colon without distant metastasis Metabolic syndrome Morbid obesity Murmur, cardiac Nicotine dependence, unspecified, uncomplicated Obstructive sleep apnea Sensorineural hearing loss, unspecified Unspecified vitamin D deficiency Surgical History Surgical History History of left knee replacement History of right hip replacement Family History Family History Father Hypertension Family history of aortic aneurysm Mother Hypertension Cerebrovascular accident Sibling Family history of lung cancer Other Family history of pancreatic cancer Social History Social History Social History: Surrogate decision maker: Mendoza Jalloh, spouse. Code status: Full code. Smoking packs per day: 2 Smoking cigarettes per day: 40.0 Years smoked: 40 Smoking pack-years: 80.00 Smoking status: Former smoker Tobacco type: cigarettes Smoking end date: 08/05/13 Alcohol intake: current Alcohol use details: Occasional Substance use: current Substance use type: marijuana Other substance usage details: GUMMIES AT HS OCCASIONALLY Lack of Transportation: No Lack of Food: Never True Current Housing: I Have Housing Concerned About Future Housing: No Difficulty Paying Gas/Electric Bills: No Difficulty Paying for Meds: No Currently Unemployed: No Education: Trade/Vocational Certificate Difficulty w/ Childcare or Family Care: No Living arrangements: with family Occupation/Education: occupation 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 Gender identity (if verbalized by the patient): Female Sexual Orientation (if Verbalized by the Patient): Straight or Heterosexual Spiritual care concerns: No Agree to blood products: Yes Meds Home Medications and Allergies Home Medications Medication Instructions Recorded Confirmed Type cholecalciferol (vitamin D3) 25 1,000 unit PO DAILY 10/15/19 05/15/24 History mcg (1,000 unit) capsule diphenhydramine 25 2 tablet PO QHS PRN Insomnia 05/22/21 05/15/24 History mg-acetaminophen 500 mg tablet (Tylenol PM Extra Strength) aspirin 81 mg tablet,delayed 81 mg PO DAILY 06/01/22 05/15/24 History release (Adult Low Dose Aspirin) biotin 1 mg capsule 1 mg PO DAILY 06/01/22 05/15/24 History multivitamin 1 tablet PO DAILY 06/01/22 05/15/24 History vit B complex 100 combo no.2 100 1 tablet PO DAILY 06/01/22 05/15/24 History mg tablet,extended release (B-100 Complex ER) flaxseed oil-omega 3,6,9-fatty 1 cap PO DAILY 11/29/22 05/15/24 History acids 1,300 mg-670 mg-155 mg capsule rosuvastatin 20 mg tablet 20 mg PO DAILY 05/21/23 05/15/24 History amlodipine 5 mg tablet (Norvasc) 5 mg PO QAM #90 tabs 02/13/24 05/15/24 Rx levothyroxine 100 mcg tablet 100 mcg PO DAILY #90 tabs 02/13/24 05/15/24 Rx (Synthroid) Jewell Kael 1 tab-cap PO DAILY 04/29/24 05/15/24 History cyanocobalamin (vitamin B-12) 500 500 mcg PO DAILY 04/29/24 05/15/24 History mcg lozenges (Vitamin B-12) magnesium oxide 400 mg PO DAILY 04/29/24 05/15/24 History amoxicillin 875 mg-potassium 1 tablet PO Q12H #14 tabs 05/11/24 05/15/24 Rx clav
[2024-05-15 08:33] VITALS: BP 111/69; PULSE 61; RESP 21; O2SAT 98
[2024-05-15 08:43] VITALS: BP 127/79; PULSE 60; RESP 22; O2SAT 100
[2024-05-15 08:53] VITALS: BP 134/80; PULSE 60; RESP 22; O2SAT 100
== END 2024-05-15 09:12 | disposition home or self-care (01) ==
PROVIDERS: PCP Family Medicine; Referring Provider Internal Medicine Gastroenterology; Visit Provider Internal Medicine Gastroenterology
PROC: 0DJD8ZZ Inspection of Lower Intestinal Tract, Via Natural or Artificial Opening Endoscopic (ICD-10-PCS; CPT 45378; principal; 2024-05-15 08:00)
DX: Z12.11 Encounter for screening for malignant neoplasm of colon (principal); D12.8 Benign neoplasm of rectum; K64.0 First degree hemorrhoids; K57.30 Diverticulosis of large intestine without perforation or abscess without bleeding; E78.5 Hyperlipidemia, unspecified; E03.9 Hypothyroidism, unspecified; E55.9 Vitamin D deficiency, unspecified; E88.810 Metabolic syndrome; R01.1 Cardiac murmur, unspecified; F12.90 Cannabis use, unspecified, uncomplicated; G47.33 Obstructive sleep apnea (adult) (pediatric); E66.01 Morbid (severe) obesity due to excess calories; Z68.41 Body mass index [BMI] 40.0-44.9, adult; Z79.82 Long term (current) use of aspirin; Z98.890 Other specified postprocedural states; Z87.891 Personal history of nicotine dependence; Z87.42 Personal history of other diseases of the female genital tract; Z80.0 Family history of malignant neoplasm of digestive organs; Z80.1 Family history of malignant neoplasm of trachea, bronchus and lung; Z82.49 Family history of ischemic heart disease and other diseases of the circulatory system
CPT/HCPCS: 45385; 88305; J2003; J7120

== ENCOUNTER 2024-05-21 08:47 | Outpatient (CLI) | payer MEDICARE, SELFPAY ==
--- NOTE | ~2024-05-21 | US_ITS ---
Abdominal Sonogram: Real-time sonographic imaging of the abdomen was performed. Clinical History: Abnormal serum enzyme levels Findings: The liver appears normal with no evidence of mass lesion or bile duct dilatation. Main por na vein demonstrates normal direction of flow. The spleen is normal in size without evidence of foca l lesion. The gallbladder is well distended, and and contains layering gallstones. The common bile d uct measures 4 mm. The visualized pancreas, aorta, and IVC are unremarkable. The right kidney measu res 10.1 cm in length and the left kidney measures 9.8 cm. There is no hydronephrosis or renal calcu marry. Impression: Cholelithiasis. Reviewed, dictated and finalized at location M. Impression: Cholelithiasis.
== END 2024-05-21 08:48 | disposition home or self-care (01) ==
LOC: MICIMG 08:48
PROVIDERS: PCP Family Medicine; Visit Provider Family Medicine
DX: R74.8 Abnormal levels of other serum enzymes (principal); K80.20 Calculus of gallbladder without cholecystitis without obstruction
CPT/HCPCS: 76700

== ENCOUNTER 2024-08-07 12:29 | Outpatient (CLI) | payer MEDICARE, SELFPAY ==
[2024-08-07 15:03] LABS: Alanine Aminotransferase 24 U/L (6-35); Albumin Level 4.2 g/dL (3.5-5.1); Alkaline Phosphatase 91 U/L (38-126); Aspartate Amino Transferase 26 U/L (14-36)
[2024-08-07 15:05] LABS: Hepatitis B Surface Antigen Negative (Negative)
[2024-08-07 15:11] LABS: HAV RESULT Negative (Negative); Hepatitis B Core IgM Result Negative (Negative)
[2024-08-07 15:22] LABS: Hepatitis C Virus Antibody Negative (Negative)
[2024-08-07 15:36] LABS: Thyroid Stimulating Hormone 0.483 uIU/mL (0.465-4.680)
== END 2024-08-07 12:30 | disposition home or self-care (01) ==
LOC: ANHGOSHLAB 12:31
PROVIDERS: PCP Family Medicine; Visit Provider Family Medicine
DX: R74.8 Abnormal levels of other serum enzymes (principal); E88.810 Metabolic syndrome; E03.9 Hypothyroidism, unspecified
CPT/HCPCS: 36415; 80074; 80076; 84436; 84443

== ENCOUNTER 2024-10-31 09:12 | Outpatient (CLI) | payer MEDICARE, SELFPAY ==
--- NOTE | ~2024-10-31 | CT_ITS ---
EXAMINATION: CT chest high resolution wo hi DATE: 10/31/2024 09:45 INDICATION: Pulmonary fibrosis TECHNIQUE: Computed tomography (CT) of the chest was performed without intravenous contrast. The dose -length product was 346.18 mGy-cm. Automated exposure control and iterative reconstruction technique were employed. COMPARISON: CT dated 10/30/2023 FINDINGS: No significant pleural or pericardial effusion. No thoracic lymphadenopathy. There is mild atherosclerosis of the aorta. Heart size normal. There are gallstones. Stable 8 mm pleural-based righ t upper lobe nodule there are stable smaller right upper lobe nodules measuring 3 mm or less. No endo bronchial lesion. No pneumothorax. No evidence for interstitial lung disease. IMPRESSION: 1. Stable right upper lobe nodules measuring 8 mm or less, likely benign. Consider follow-up CT in 12 months. 3: Cholelithiasis. Reviewed, dictated and finalized at location A. IMPRESSION: 1. Stable right upper lobe nodules measuring 8 mm or less, likely benign. Consi devon follow-up CT in 12 months. 3: Cholelithiasis.
--- OUTSIDE RECORDS SUMMARY | 2024-10-31 09:16 | XMS_ITS | Clinical Summary ---
Author Organization [facility] Address [address] [place] [address] Care Team Providers Care Hot Plate Plywood Press Laborer Name Role Phone Igor Long MD Unavailable Source Comments [facility],non-owned Affiliates and Associated Physician Practices is amultiple site organization consisting of ambulatory clinics and hospital sitesin [place], [place], [place] and [place]. This disclosure is being madepursuant to the Care Everywhere program and may not contain all information available regarding this patient. Last updated 18.[facility] Allergies Active Allergy Reactions Criticality Noted Date Comments Bupropion Other Low 11/27/2018 Skin crawling Medications * Be aware that medications may not be up to date on this document. Alwaysverify current medications with the patient. Medication Sig Dispensed Refills Start Date End Date Status levothyroxine (SYNTHROID) 100 MCG tablet Take 100 mcg by mouth daily before breakfast Active celecoxib (CELEBREX) 200 MG capsule TAKE 1 CAPSULE BY MOUTH TWICE DAILY 180 capsule 3 04/03/2021 Active Active Problems Problem Noted Date Diagnosed Date Primary osteoarthritis of both knees 12/27/2020 Primary osteoarthritis of left knee 08/19/2020 Social History Tobacco Use Types Packs/Day Years Used Date Smoking Tobacco: Never Smokeless Tobacco: Never Sex and Gender Information Value Date Recorded Sex Assigned at Not on file Gender Identity Not on file Sexual Orientation Not on file Last Filed Vital Signs Vital Sign Reading Time Taken Comments Blood Pressure - - Pulse - - Temperature - - Respiratory Rate - - Oxygen Saturation - - Inhaled Oxygen Concentration - - Weight 97.5 kg (215 lb) 08/18/2020 4:06 PM TRESTLE BUILDER Height 154.9 cm (5' 1 ) 08/18/2020 4:06 PM TRESTLE BUILDER Body Mass Index 40.62 08/18/2020 4:06 PM TRESTLE BUILDER Plan of Treatment Health Maintenance Due Date Last Done Comments BONE DENSITY TESTING 1960 COLOGUARD (AGES 45-75) - COLON CA SCREENING 1958 COLON MONITORING 1958 COLONOSCOPY - COLON CA SCREENING 1958 CT COLONOGRAPHY - COLON CA SCREENING 1958 Colorectal Cancer Screening 1958 FIT - COLON CA SCREENING 1958 FLEX SIG - COLON CA SCREENING 1958 LIPID TESTING 1958 MAMMOGRAM 1958 MEDICARE AWV 12 MONTHS 1958 HEPATITIS C SCREENING 07/13/1976 DTAP/TDAP/TD VACCINES (1 - Tdap) 1977 PNEUMOCOCCAL VACCINE 50+ (1 of 1 - PCV) 2008 ZOSTER VACCINE (1 of 2) 2008 Respiratory Syncytial Virus (RSV) Vaccine Pt: or over 60 yrs (1 - Risk 60-74 years 1-dose series) 2018 SCREENING FOR DIABETES 08/18/2020 COVID-19 VACCINE ( - 2023- season) 2024 INFLUENZA VACCINE (#1) 2024 0, 04/13/2019, 05/29/2018, Additional history exists DEPRESSION SCREENING 08/05/2024 HEPATITIS B VACCINE Aged Out No longe r eligible based on patient's age to complete this topic HIB VACCINE Aged Out No longer eligi ble based on patient's age to complete this topic HPV VACCINE Aged Out No longer eligi ble based on patient's age to complete this topic MENINGOCOCCAL (Group B) VACCINE SHARED DECISION-MAKING Aged Out No longer eligible based on patient's age to complete this topic MENINGOCOCCAL GROUPS A/C/Y/W VACCINE Aged Out No longer eligible based on patient's age to complete this topic Care Teams Hot Plate Plywood Press Laborer Relationship Specialty [place] [id number] [address] [facility] [address] [place] [address] Surgeon Orthopedic Surgery 08/18/20
--- OUTSIDE RECORDS SUMMARY | 2024-10-31 09:16 | XMS_ITS | Referral Summary ---
Author Organization [facility] [address] Address [address] [place] [address] Care Team Providers Care Knockdown Worker Name Role Phone Nic Zhou MD Primary Care Provider [phone] Allergies Active Allergy Reactions Criticality Noted Date Comments Bupropion Rash Medium 11/27/2018 Skin crawling Medications amLODIPine (NORVASC) 5 mg tabletIndicatio ns:hypertension Take 1 tablet (5 mg total) by mouth every morning 2 Active cholecalciferol (VITAMIN D-3) 5,000 unit tablet Take 1 tablet (5,000 Units total) by mouth nightly Active CALCIUM ORAL Take 1 tablet by mouth nightly Active magnesium oxide 400 mg magnesium capsule Take by mouth nightly Active loratadine (CLARITIN) 10 mg tablet Take 1 tablet (10 mg total) by mouth every morning Active guaifenesin/dex tromethorphan (MUCUS RELIEF DM ORAL) Take by mouth nightly as needed Active triamcinolone (NASACORT) 55 mcg nasal inhaler Administer 2 sprays into each nostril as needed for rhinitis Active biotin 5 mg capsule Take 1 capsule (1 tablet total) by mouth every morning Active levothyroxine (SYNTHROID) 137 mcg tablet Take 1 tablet (137 mcg total) by mouth deputy chief magistrate before breakfast Active multivitamin capsule Take 1 capsule by mouth daily Active cyanocobalamin, vitamin B-12, 5,000 mcg tablet, sublingual Place under the tongue Active omega-3 fatty acids-fish oil 300-1,000 mg capsule Take 2 capsules (2 g total) by mouth daily Active aspirin 81 mg enteric coated tablet Take 1 tablet (81 mg total) by mouth daily Active diphenhydrAMINE -acetaminophen (TYLENOL PM) 25-500 mg tablet Take 1 tablet by mouth daily Active rosuvastatin (CRESTOR) 20 mg tablet TAKE 1 TABLET(20 MG) BY MOUTH DAILY 30 tablet 3 4 Active amoxicillin (AMOXIL) 500 mg tablet/capsule TAKE FOUR TABLETS/CAPSULE S 1 HOUR PRIOR TO DENTAL PROCEDURE 8 tablet/capsul e 2 4 Active Active Problems Problem Noted Date Diagnosed Date Arthritis of right knee 01/04/2023 Osteoarthritis of left knee, unspecified osteoarthritis type 09/20/2022 Hypotension 09/06/2022 History of DVT (deep vein thrombosis) 09/06/2022 ANGELI on CPAP 09/06/2022 Pulmonary hypertension 09/06/2022 Hypothyroidism 09/06/2022 Primary osteoarthritis of both knees 12/27/2020 Primary osteoarthritis of left knee 08/19/2020 Surgical follow-up care 11/14/2012 Arthralgia of hip 05/30/2012 Immunizations Immunization Administration Dates Next Due Influenza, Quadrivalent, Rec ombinant, Egg Free, Preservative Free, Intramuscular 04/13/2019 Influenza, Quadrivalent, Spl it, Preservative Free, Intramuscular 03/20/2020,05/29/2018,05/28/2018 Influenza, Trivalent, IM (MDV) 04/19/2017 Influenza, Trivalent, Preser vative Free, Intramuscular 05/02/2016,05/31/2015 Tdap 07/10/2018 Social History Tobacco Use Types Packs/Day Years Used Date Smoking Tobacco: Former Cigarettes 1 39 0 08/05/1973 - 08/05/2012 Smokeless Tobacco: Never Tobacco Cessation:Counseling Given: Not Answered Alcohol Use Standard Drinks/Week Comments Yes 0 (1 standard drink = 0.6 oz pur e alcohol) OASIS D0700: Social Isolation Answer Da te Recorded Frequency of experiencing loneliness or isolatio n Never 09/23/2022 AUDIT-C Answer Date Recorded Frequency of Alcohol Consumption Not on file 12/13/2022 Q2: How many drinks containi ng alcohol do you have on a typical day when you are drinking? Patient does not drink Frequency of Binge Drinking Not on file 12/03 Personal Safety Answer Date Recorded Have you ever been in or are you currently in a harmful physical or emotional relationship or is someone making you feel afraid or unsafe? 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 Gender Identity Female 11/22/2018 7:36 AM CDT Sexual Orientation Straight 11/22/2018 7: 36 AM CDT Last Filed Vital Signs Vital Sign Reading Time Taken Comments Blood Pressure 128/86 04/30/2023 11:08 AM CDT Pulse 77 04/30/2023 11:08 AM CDT Temperature 36.7 C (98 F) 01/05/2023 8:00 AM CDT Respiratory Rate 18 01/05/2023 8:00 AM CDT Oxygen Saturation 97% 04/30/2023 11:08 AM CDT Inhaled Oxygen Concentration - - Weight 100.7 kg (222 lb) 04/30/2023 11:08 AM CDT Height 156.2 cm (5' 1.5 ) 04/30/2023 11:08 AM CD T Body Mass Index 41.27 04/30/2023 11:08 AM CDT Plan of Treatment Not on file Medical Devices Implanted Type Area Reporting Lead Device Identifier Shelf Expiration Date Model / Serial / Lot [employer] Attune Fb Tib Base Sz 4 Por [id number] - [id number] Implanted:Qty: 1 on 09/20/2022 by Devon Caraballo MD at [facility] Other - see comments Left: Knee [employer] 06/04/2032 [id number] / / [id number] [employer] Attune Cruciate Retain Cementless Knee Left 4 Component Femoral [id number] - Sna - [id number] Implanted:Qty: 1 on 09/20/2022 by Devon Caraballo MD at [facility] Other - see comments Left: Knee [employer] 04/04/2031 [id number] / NA / [id number] [employer] Insert Tibial Knee Fixed Lm Posterior Stabilized Attune 7mm Size 4 Polyethylene [id number] - Sna - [id number] Implanted:Qty: 1 on 09/20/2022 by Devon Caraballo MD at [facility] Other - see comments Left: Knee [employer] 08/04/2029 [id number] / NA / [id number] [employer] Attune Cruciate Retain Cementless Knee Right 4 Component Femoral [id number] - Sna - [id number] Implanted:Qty: 1 on 01/04/2023 by Devon Caraballo MD at [facility] Other - see comments Right: Knee [employer] [id number] 10/02/2032 [id number] / NA / [id number] Description:Implant Pause Pe rformed [employer] Attune Fb Tib Base Sz 5 Por [id number] - Sna - [id number] Implanted:Qty: 1 on 01/04/2023 by Devon Caraballo MD at [facility] Other - see comments Right: Knee [employer] 11/02/2032 [id number] / NA / [id number] Description:Implant Pause Pe rformed [employer] Insert Tibial Knee Fixed Rm Posterior Stabilized Attune 10mm Size 4 Polyethylene [id number] - Sna - [id number] Implanted:Qty: 1 on 01/04/2023 by Devon Caraballo MD at [facility] Other - see comments Right: Knee [employer] [id number] 09/04/2030 [id number] / NA / [id number] Description:Implant Pause Pe rformed Hip Right: Hip Insurance [employer] MEDICARE [facility] MEDICARE [facility] Advance Directives For more information, please contact: [phone] Documents on File Type Date Recorded Patient Investigator Operator Expl anation ADVANCE DIRECTIVE 08/23/2022 1:23 PM POWER OF COTTON CLEANER-MEDICAL * Full Code (Latest Code Status on File) Date Activated Date Inactivated Comments 01/04/2023 4:24 PM 01/05/2023 4:35 PM * Full Code Date Activated Date Inactivated Comments 09/20/2022 3:03 PM 09/21/2022 2:56 PM Care Teams Knockdown Worker Relationship Specialty Start Date End Date Nic Zhou MD PCP - General Family Medicine 03/02/22
--- OUTSIDE RECORDS SUMMARY | 2024-10-31 09:16 | XMS_ITS | Clinical Summary ---
Author Organization [facility] [address] Address [address] [place] [address] Care Team Providers Care Food Service Sales Representatives Name Role Phone Nic Zhou MD Primary Care Provider [phone] [phone] Allergies Active Allergy Reactions Criticality Noted Date [...] 1 tablet (137 mcg total) by mouth early education teacher before breakfast Active multivitamin capsule Take 1 [...] Preser vative Free, Intramuscular 05/02/2016,05/31/2015 Tdap 07/10/2018 Surgical History Surgery Date Site/Laterality Comments HIP SURGERY 08/05/2012 - 08/04/2013 Right arthroplasty JOINT REPLACEMENT 09/20/2022 Left total knee arthroplasty LUNG BIOPSY 08/05/2021 - 08/04/2022 SECTION 1992 Medical History Medical History Date Comments Aftercare following joint re placement surgery Aftercare following joint replacement - (Added by TW Conv) Obesity Hypercholesteremia Arthritis ANGELI on CPAP 09/06/2022 Sarcoidosis Motion sickness sometimes Family History Medical History Relation Name Comments Cancer Brother Shayne Hearing loss Father Yana Hypertension Father Yana Hypertension Mother Elizabeth Stroke Mother Elizabeth Hypertension Other 1 Family history of hypertension - (Added by TW Conv) Stroke Other 2 Family history of cerebrovascular accident (CVA) - (Added by TW Conv) Alcohol abuse Other 3 Family history of alcoholism - (Added by TW Conv) Lung disease Other 4 Family history of lung disease - (Added by TW Conv) Anesthesia problems Neg Hx Malig Hypertension Neg Hx Malig Hyperthermia Neg Hx Pseudochol deficiency Neg Hx Relation Name Status Comments Brother Shayne Father Yana Mother Elizabeth Other 1 Other 2 Other 3 Other 4 Social History Tobacco Use Types Packs/Day Years [...] on file 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 Gender Identity Female 11/22/2018 7:36 AM CDT Sexual Orientation Straight 11/22/2018 7: 36 AM CDT Obstetrics History Last Filed Vital Signs Vital Sign Reading [...] 04/30/2023 11:08 AM CDT Plan of Treatment Health Maintenance Due Date Last Done Comments Breast Cancer Screening-Mammogram 1958 Colon Cancer Screening-Colonoscopy 1958 Depression Screening 1958 Hepatitis C Screening 1958 Osteoporosis Screening-Bone Density Scan 1958 Hepatitis B Screening 1976 Lung Cancer Screening 2008 Zoster Vaccine (1 of 2) 2008 Pneumococcal vaccine 65+ (2 of 2 - PPSV23) 12/04/2022 12/04/2021 Well Visit 65+ 2023 Fall Risk Assessment 01/06/2024 01/05/2023 Covid-19 Vaccine (4 - 2023-2 5 season) 2024 06/13/2021, 11/09/2020, 10/19/2020 Influenza Vaccine (#1) 2024 , 03/20/2020, 04/13/2019, Additional history exists DTaP/Tdap/Td Vaccine (2 - Td or Tdap) 07/10/2028 07/10/2018 Medical Devices Implanted Type Area Explosives Engineer Device Identifier Shelf Expiration Date Model / Serial / Lot [employer] Attune Fb Tib Base Sz 4 Por [id number] - [id number] Implanted:Qty: 1 on 09/20/2022 by Devon Caraballo MD at [facility] Other - see comments Left: Knee [employer] 06/04/2032 [id number] / / [id number] [employer] Attune Cruciate Retain Cementless Knee Left 4 Component Femoral [id number] - Sna - [id number] Implanted:Qty: 1 on 09/20/2022 by Devon Caraballo MD at [facility] Other - see comments Left: Knee [employer] 04/04/2031 [id number] / NA / [id number] [employer] Insert Tibial Knee Fixed Lm Posterior Stabilized Attune 7mm Size 4 Polyethylene [id number] - Sna - [id number] Implanted:Qty: 1 on 09/20/2022 by Devon Caraballo MD at [facility] Other - see comments Left: Knee [employer] 08/04/2029 [id number] / NA / [id number] [employer] Attune Cruciate Retain Cementless Knee Right 4 Component Femoral [id number] - Sna - [id number] Implanted:Qty: 1 on 01/04/2023 by Devon Caraballo MD at [facility] Other - see comments Right: Knee [employer] [id number] 10/02/2032 [id number] / NA / [id number] Description:Implant Pause Pe rformed [employer] Attune Fb Tib Base Sz 5 Por [id number] - Sna - [id number] Implanted:Qty: 1 on 01/04/2023 by Devon Caraballo MD at [facility] Other - see comments Right: Knee [employer] 11/02/2032 [id number] / NA / [id number] Description:Implant Pause Pe rformed [employer] Insert Tibial Knee Fixed Rm Posterior Stabilized Attune 10mm Size 4 Polyethylene [id number] - Sna - [id number] Implanted:Qty: 1 on 01/04/2023 by Devon Caraballo MD at [facility] Other - see comments Right: Knee [employer] [id number] 09/04/2030 [id number] / NA / [id number] Description:Implant Pause Pe rformed Hip Right: Hip Insurance [facility] MEDICARE [facility] MEDICARE [facility] CIG[employer] Advance Directives For more information, please contact: [phone] Documents on File Type Date Recorded Patient Clock Smith Expl anation ADVANCE DIRECTIVE 08/23/2022 1:23 PM POWER OF CUTTER OPERATOR TILE-MEDICAL * Full Code (Latest Code Status on File) Date Activated Date Inactivated Comments 01/04/2023 4:24 PM 01/05/2023 4:35 PM * Full Code Date Activated Date Inactivated Comments 09/20/2022 3:03 PM 09/21/2022 2:56 PM Care Teams Food Service Sales Representatives Relationship Specialty Start Date End Date Nic Zhou MD PCP - General Family Medicine 03/02/22
== END 2024-10-31 09:13 | disposition home or self-care (01) ==
PROVIDERS: PCP Family Medicine; Visit Provider Internal Medicine Pulmonary Disease
DX: J84.10 Pulmonary fibrosis, unspecified (principal); R91.8 Other nonspecific abnormal finding of lung field; K80.20 Calculus of gallbladder without cholecystitis without obstruction
CPT/HCPCS: 71250

== ENCOUNTER 2025-02-08 11:35 | Outpatient (CLI) | payer MEDICARE, SELFPAY ==
--- OUTSIDE RECORDS SUMMARY | 2025-02-08 11:44 | XMS_ITS | Clinical Summary ---
Author Organization [facility] [place] [address] Address [address] [place] [address] Care Team Providers Care Algorithm Developer Name Role Phone Nic Zhou MD Primary Care Provider [phone] Allergies Active Allergy Reactions Criticality Noted Date Comments Bupropion Rash Medium 11/27/2018 Skin crawling Medications amLODIPine (NORVASC) 5 mg tabletIndicati ons:hypertensi on Take 1 tablet (5 mg total) by mouth every morning 04/29/20 22 Active cholecalcifero l (VITAMIN D-3) 5,000 unit tablet Take 1 tablet (5,000 Units total) by mouth nightly Active CALCIUM ORAL Take 1 tablet by mouth nightly Active magnesium oxide 400 mg magnesium capsule Take by mouth nightly Active loratadine (CLARITIN) 10 mg tablet Take 1 tablet (10 mg total) by mouth every morning Active guaifenesin/de xtromethorphan (MUCUS RELIEF DM ORAL) Take by mouth nightly as needed Active triamcinolone (NASACORT) 55 mcg nasal inhaler Administer 2 sprays into each nostril as needed for rhinitis Active levothyroxine (SYNTHROID) 137 mcg tablet Take 1 tablet (137 mcg total) by mouth house painter helper before breakfast Active multivitamin capsule Take 1 capsule by mouth daily Active cyanocobalamin , vitamin B-12, 5,000 mcg tablet, sublingual Place under the tongue Active omega-3 fatty acids-fish oil 300-1,000 mg capsule Take 2 capsules (2 g total) by mouth daily Active aspirin 81 mg enteric coated tablet Take 1 tablet (81 mg total) by mouth daily Active amoxicillin (AMOXIL) 500 mg tablet/capsule TAKE FOUR TABLETS/CAPSUL ES 1 HOUR PRIOR TO DENTAL PROCEDURE 8 tablet/capsu le 2 06/30/20 24 Active biotin 5 mg capsule Take 1 capsule (1 tablet total) by mouth every morning 025 Discontinued diphenhydrAMIN E-acetaminophe n (TYLENOL PM) 25-500 mg tablet Take 1 tablet by mouth daily 025 Discontinued rosuvastatin (CRESTOR) 20 mg tablet TAKE 1 TABLET(20 MG) BY MOUTH DAILY 30 tablet 3 06/07/20 24 025 Discontinued Active Problems Problem Noted Date Diagnosed Date Arthritis of right knee 01/04/2023 Osteoarthritis of left knee, unspecified osteoarthritis type 09/20/2022 Hypotension 09/06/2022 History of DVT (deep vein thrombosis) 09/06/2022 ANGELI on CPAP 09/06/2022 Pulmonary hypertension 09/06/2022 Hypothyroidism 09/06/2022 Primary osteoarthritis of both knees 12/27/2020 Primary osteoarthritis of left knee 08/19/2020 Surgical follow-up care 11/14/2012 Arthralgia of hip 05/30/2012 Encounters Date Type Department Care Team Description 02/01/2025 7:30 AM CDT Office Visit [facility] Orthopaedic Surgery [address] [place] [address] Medical Office Building [address] [place] [phone] Devon Caraballo MD Hx of total knee arthroplasty, bilateral (Primary Dx); Aftercare following bilateral knee joint replacement surgery 02/01/2025 7:00 AM CDT - 02/01/2025 11:59 PM CDT Hospital Encounter [facility] [address] [place] [address] [address] [place] [phone] Hx of total knee arthroplasty, bilateral Discharge Disposition: Discharge to home or self care from Last 3 Months Immunizations Immunization Administration Dates Next Due Influenza, [...] on file 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 Gender Identity Female 11/22/2018 7:36 AM CDT [...] 11:08 AM CDT Height 156.2 cm (5' 1.5) 04/30/2023 11:08 AM CD T Body Mass [...] 2024 06/13/2021, 11/09/2020, 10/19/2020 Influenza Vaccine (#1) 2025 , 03/20/2020, 04/13/2019, Additional history exists DTaP/Tdap/Td Vaccine (2 - Td or Tdap) 07/10/2028 07/10/2018 Medical Devices Implanted Type Area Senior Clinical Sas Programmer Device Identifier Shelf Expiration Date Model / Serial / Lot [employer] Attune Fb Tib Base Sz 4 Por [id number] - [id number] Implanted:Qty: 1 on 09/20/2022 by Devon Caraballo MD at [facility] Other - see comments Left: Knee [employer] 06/04/2032 [id number] / / [id number] [employer] Attune Cruciate Retain Cementless Knee Left 4 Component Femoral [id number] - Sna - [id number] Implanted:Qty: 1 on 09/20/2022 by Devon Caraballo MD at [facility] Other - see comments Left: Knee [employer] 04/04/2031 [id number] / NA / [id number] [employer] Insert Tibial Knee Fixed Lm Posterior Stabilized Attune 7mm Size 4 Polyethylene [id number] - Sna - [id number] Implanted:Qty: 1 on 09/20/2022 by Devon Caraballo MD at [facility] Other - see comments Left: Knee [employer] 08/04/2029 [id number] / NA / [id number] [employer] Attune Cruciate Retain Cementless Knee Right 4 Component Femoral [id number] - Sna - [id number] Implanted:Qty: 1 on 01/04/2023 by Devon Caraballo MD at [facility] Other - see comments Right: Knee [employer] [id number] 10/02/2032 [id number] / NA / [id number] Description:Implant Pause Pe rformed [employer] Attune Fb Tib Base Sz 5 Por [id number] - Sna - [id number] Implanted:Qty: 1 on 01/04/2023 by Devon Caraballo MD at [facility] Other - see comments Right: Knee [employer] 11/02/2032 [id number] / NA / [id number] Description:Implant Pause Pe rformed [employer] Insert Tibial Knee Fixed Rm Posterior Stabilized Attune 10mm Size 4 Polyethylene [id number] - Sna - [id number] Implanted:Qty: 1 on 01/04/2023 by Devon Caraballo MD at [facility] Other - see comments Right: Knee [employer] [id number] 09/04/2030 [id number] / NA / [id number] Description:Implant Pause Pe rformed Hip Right: Hip Procedures Procedure Name Priority Date/Time Associated Diagnosis Comments XR KNEE RIGHT 3 VIEWS Schedule Routine, Read Routine (OP Routine) 02/01/2025 7:26 AM CDT Hx of total knee arthroplasty, bilateral XR KNEE LEFT 3 VIEWS Schedule Routine, Read Routine (OP Routine) 02/01/2025 7:26 AM CDT Hx of total knee arthroplasty, bilateral from Last 3 Months Results * XR Knee Right 3 Views (02/01/2025 7:26 AM CDT) Anatomical Region Laterality Modality Lower Extremities, Knee Right Computed Radiography 02/01/2025 7:32 AM CDT Impressions 02/01/2025 7:32 AM CDT 1. Unchanged bilateral 2 component knee arthroplasties in near-anatomic position. Electronically signed by: Barrett Mcleod M.D. Narrative 02/01/2025 7:32 AM CDT EXAMINATION: XR KNEE LEFT 3 VIEWS, XR KNEE RIGHT 3 VIEWS HISTORY: Bilateral knee arthroplasties FINDINGS: 3 view examination of the right and left knee are read with comparison to 01/27/2024. Unchanged bilateral 2 component knee arthroplasties in near-anatomic position. No periprosthetic fracture or component migration. Trace bilateral knee joint effusions. Procedure Note Barrett Wallace MD - 02/01/2025 EXAMINATION: XR KNEE LEFT 3 VIEWS, XR KNEE RIGHT 3 VIEWS HISTORY: Bilateral knee arthroplasties FINDINGS: 3 view examination of the right and left knee are read with comparison to 01/27/2024. Unchanged bilateral 2 component knee arthroplasties in near-anatomic position. No periprosthetic fracture or component migration. Trace bilateral knee joint effusions. IMPRESSION: 1. Unchanged bilateral 2 component knee arthroplasties in near-anatomic position. Electronically signed by: Barrett Mcleod M.D. Devon Caraballo MD IMG XR PROCEDURES Final R esult * XR Knee Left 3 Views (02/01/2025 7:26 AM CDT) Anatomical Region Laterality Modality Lower Extremities, Knee Left Computed Radiography 02/01/2025 7:32 AM CDT Impressions 02/01/2025 7:32 AM CDT 1. Unchanged bilateral 2 component knee arthroplasties in near-anatomic position. Electronically signed by: Barrett Mcleod M.D. Narrative 02/01/2025 7:32 AM CDT EXAMINATION: XR KNEE LEFT 3 VIEWS, XR KNEE RIGHT 3 VIEWS HISTORY: Bilateral knee arthroplasties FINDINGS: 3 view examination of the right and left knee are read with comparison to 01/27/2024. Unchanged bilateral 2 component knee arthroplasties in near-anatomic position. No periprosthetic fracture or component migration. Trace bilateral knee joint effusions. Procedure Note Barrett Wallace MD - 02/01/2025 EXAMINATION: XR KNEE LEFT 3 VIEWS, XR KNEE RIGHT 3 VIEWS HISTORY: Bilateral knee arthroplasties FINDINGS: 3 view examination of the right and left knee are read with comparison to 01/27/2024. Unchanged bilateral 2 component knee arthroplasties in near-anatomic position. No periprosthetic fracture or component migration. Trace bilateral knee joint effusions. IMPRESSION: 1. Unchanged bilateral 2 component knee arthroplasties in near-anatomic position. Electronically signed by: Barrett Mcleod M.D. Devon Caraballo MD IMG XR PROCEDURES Final R esult from Last 3 Months Insurance [facility] Address: [facility] [id number] [place] [address] [facility] [address]ICARE 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
--- OUTSIDE RECORDS SUMMARY | 2025-02-08 11:44 | XMS_ITS | Referral Summary ---
Author Organization [facility] [place] [address] Address [address] [place] [address] Care Team Providers Care Filer Helper Name Role Phone Nic Zhou MD Primary Care Provider [phone] Encounters Date Type Department Care Team Description 02/01/2025 7:00 AM CDT - 02/01/2025 11:59 PM CDT Hospital Encounter [facility] [address] [place] [address] [address] [place] [phone] Hx of total knee arthroplasty, bilateral Discharge Disposition: Discharge to home or self care 02/01/2025 7:30 AM CDT Office Visit [facility] Orthopaedic Surgery [address] [facility] Medical Office Building [address] [place] [address] Devon Caraballo MD Hx of total knee arthroplasty, bilateral (Primary Dx); Aftercare following bilateral knee joint replacement surgery from Last 3 Months Allergies Active Allergy Reactions Criticality Noted Date [...] tablet (137 mcg total) by mouth early childhood specialist before breakfast Active multivitamin capsule Take 1 [...] on file 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 Gender Identity Female 11/22/2018 7:36 AM CDT [...] on file Medical Devices Implanted Type Area Clerical Investigator Device Identifier Shelf Expiration Date Model / Serial / Lot [employer] Attune Fb Tib Base Sz 4 Por [id number] - [id number] Implanted:Qty: 1 on 09/20/2022 by Devon Caraballo MD at [facility] Other - see comments Left: Knee [employer] 06/04/2032 [id number] / / [id number] [employer] Attune Cruciate Retain Cementless Knee Left 4 Component Femoral [id number] - Sna - [id number] Implanted:Qty: 1 on 09/20/2022 by Devon Caraballo MD at [facility] Other - see comments Left: Knee [employer] 04/04/2031 [id number] / NA / [id number] [employer] Insert Tibial Knee Fixed Lm Posterior Stabilized Attune 7mm Size 4 Polyethylene [id number] - Sna - [id number] Implanted:Qty: 1 on 09/20/2022 by Devon Caraballo MD at [facility] Other - see comments Left: Knee [employer] 08/04/2029 [id number] / NA / [id number] [employer] Attune Cruciate Retain Cementless Knee Right 4 Component Femoral [id number] - Sna - [id number] Implanted:Qty: 1 on 01/04/2023 by Devon Caraballo MD at [facility] Other - see comments Right: Knee [employer] [id number] 10/02/2032 [id number] / NA / [id number] Description:Implant Pause Pe rformed [employer] Attune Fb Tib Base Sz 5 Por [id number] - Sna - [id number] Implanted:Qty: 1 on 01/04/2023 by Devon Caraballo MD at [facility] Other - see comments Right: Knee [employer] 11/02/2032 [id number] / NA / [id number] Description:Implant Pause Pe rformed [employer] Insert Tibial Knee Fixed Rm Posterior Stabilized Attune 10mm Size 4 Polyethylene [id number] - Sna - [id number] Implanted:Qty: 1 on 01/04/2023 by Devon Caraballo MD at [facility] Other - see comments Right: Knee [employer] [id number] 09/04/2030 [id number] / NA / [id number] Description:Implant Pause Pe [...] R esult from Last 3 Months Insurance CIG MEDICARE [facility] [place]IC[place] [address] CIG[employer] Advance Directives For more information, please contact: [phone] Documents on File Type Date Recorded Patient Test Automation Architect Expl anation ADVANCE DIRECTIVE 08/23/2022 1:23 PM POWER OF PASTEURIZER HELPER-MEDICAL * Full Code (Latest Code Status on File) Date Activated Date Inactivated Comments 01/04/2023 4:24 PM 01/05/2023 4:35 PM * Full Code Date Activated Date Inactivated Comments 09/20/2022 3:03 PM 09/21/2022 2:56 PM Care Teams Filer Helper Relationship Specialty Start Date End Date Nic Zhou MD PCP - General Family Medicine 03/02/22
--- OUTSIDE RECORDS SUMMARY | 2025-02-08 11:44 | XMS_ITS | Clinical Summary ---
Author Organization [facility] Address [address] [place] [address] Care Team Providers Care Parts Assembler Name Role Phone Igor Long MD Unavailable Source Comments [facility],non-owned Affiliates and Associated Physician Practices is amultiple site organization consisting of ambulatory clinics and hospital sitesin [place], [place], [place] and [place]. This disclosure is being madepursuant to the Care Everywhere program and may not contain all information available regarding this patient. Last updated 18.[facility] Allergies Active Allergy Reactions Criticality Noted Date Comments Bupropion Other Low 11/27/2018 Skin crawling Medications * Be aware that medications may not be up to date on this document. Alwaysverify current medications with the patient. 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 Gender Identity Not on file Sexual Orientation Not on file Last Filed Vital Signs Vital Sign Reading Time Taken Comments Blood Pressure - - Pulse - - Temperature - - Respiratory Rate - - Oxygen Saturation - - Inhaled Oxygen Concentration - - Weight 97.5 kg (215 lb) 08/18/2020 4:06 PM NEONATAL NURSE PRACTITIONER Height 154.9 cm (5' 1) 08/18/2020 4:06 PM NEONATAL NURSE PRACTITIONER Body Mass Index 40.62 08/18/2020 4:06 PM NEONATAL NURSE PRACTITIONER Plan of Treatment Health Maintenance Due Date [...] 2018 SCREENING FOR DIABETES 08/18/2020 COVID-19 VACCINE (1 - 2023- season) 2024 DEPRESSION SCREENING 08/05/2024 INFLUENZA VACCINE (Season Ended) 2025 03/20/2020, 04/13/2019, 05/29/2018, Additional history exists HEPATITIS B VACCINE Aged Out No longe [...] on patient's age to complete this topic Insurance [facility] Address: [facility] [id number] [place] [address] [facility] [place]: [facility] [id number] [place] [address] MEDICARE [facility] SELF PAY NO INSURANCE Member Subscriber Plan / Payer (Ef fective for All Dates) Name:Marci Johnston Member ID:Not on file Relation to Subscriber:Not on file Name:VICKIEMARCI Subscriber ID:Not on file (Home) Address: [address] [place] [address] Payer ID:Not on file Group ID:Not on file Type:Self Pay Address: [place], [place] Care Teams Parts Assembler Relationship Specialty [place] [id number] [address] Surgeon Orthopedic Surgery 08/18/20
[2025-02-08 13:43] LABS: Alanine Aminotransferase 24 U/L (6-35); Albumin Level 4.4 g/dL (3.5-5.1); Alkaline Phosphatase 92 U/L (38-126); Anion Gap 7 mmol/L (4-12); Aspartate Amino Transferase 42 U/L (14-36); Bilirubin,Total 0.6 mg/dL (0.2-1.3); Blood Urea Nitrogen 19 mg/dL (7-17); Calcium 9.3 mg/dL (8.4-10.2); Carbon Dioxide 26 mmol/L (22-30); Chloride 106 mmol/L (98-107); Cholesterol 240 mg/dL (0-200); Estimated Glomerular Filt Rate > 60; Glucose 89 mg/dL (65-110); HDL Direct 63 mg/dL; Potassium 3.8 mmol/L (3.4-5.0); Sodium 139 mmol/L (137-145); Total Protein 7.9 g/dL (6.3-8.2); Triglycerides 65 mg/dL (<150)
[2025-02-08 14:13] LABS: Thyroid Stimulating Hormone 2.610 uIU/mL (0.465-4.680)
== END 2025-02-08 11:36 | disposition home or self-care (01) ==
PROVIDERS: PCP Family Medicine; Visit Provider Nurse Practitioner Family
DX: E03.9 Hypothyroidism, unspecified (principal); I10 Essential (primary) hypertension; R74.8 Abnormal levels of other serum enzymes
CPT/HCPCS: 36415; 80053; 80061; 84443